=== PATIENT | male | born 1960 | race Caucasian/White ===

== ENCOUNTER → 2020-07-15 09:30 | Outpatient (BNVA) | payer OTHER, SELFPAY | PROVIDERS: PCP Internal Medicine; Visit Provider Psychiatry & Neurology Neurology | DX: Z76.89 Persons encountering health services in other specified circumstances (principal) ==

== ENCOUNTER → 2020-10-07 08:52 | Outpatient (BNVA) | payer OTHER, SELFPAY | PROVIDERS: PCP Internal Medicine; Visit Provider Psychiatry & Neurology Neurology ==

== ENCOUNTER → 2021-04-21 08:29 | Outpatient (BNVA) | payer OTHER, SELFPAY | PROVIDERS: PCP Internal Medicine; Visit Provider Psychiatry & Neurology Neurology ==

== ENCOUNTER 2021-07-01 07:13 | Outpatient (REF) | payer OTHER, SELFPAY ==
[2021-07-01 11:21] LABS: MANUAL DIFF FLAG NO
[2021-07-01 11:33] LABS: Basophils Percent Auto 0.2 % (0-2); Eosinophils Percent Auto 0.2 % (0-4); Hematocrit 42.6 % (42.0-52.0); Hemoglobin 14.5 g/dl (14.0-18.0); Imm Gran Abs Auto 0.02 X10*3/uL (0.00-0.03); Imm Gran Pct Auto 0.3 % (0.0-0.4); Mean Corpuscular Hemoglobin 30.4 pg (27.0-33.0); Mean Corpuscular Volume 89.3 fL (80.0-98.0); Mean Platelet Volume 10.9 fL (9.4-12.4); Monocytes Absolute Auto 0.7 X10*3/uL (0.1-1.2); Monocytes Percent Auto 10.5 % (2-11); Neutrophils Absolute Auto 4.7 x10*3/uL (2.0-8.3); Neutrophils Percent Auto 72.8 % (45-73); Platelet Count 123 X10*3/uL (160-400); Red Blood Count 4.77 X10*6/uL (4.60-5.80); Red Cell Distribution Width 12.3 % (11.0-16.0); White Blood Count 6.5 X10*3/uL (4.8-10.8)
[2021-07-01 11:39] LABS: Estimated Average Glucose 258 mg/dL; Hemoglobin A1c % 10.6 %
[2021-07-01 11:58] LABS: Anion Gap 15 (12-20); Blood Urea Nitrogen 11 mg/dL (9-16); Calcium 9.1 mg/dL (8.4-10.2); Carbon Dioxide 26 mmol/L (22-29); Chloride 98 mmol/L (96-108); Cholesterol 135 mg/dL; Estimated Glomerular Filt Rate > 60; Glucose Fasting 208 mg/dL (60-99); HDL Cholesterol 29 mg/dL; LDL Cholesterol Calculated 87 mg/dl; Potassium 4.1 mmol/L (3.3-5.1); Sodium 135 mmol/L (135-145); Triglycerides 99 mg/dL
[2021-07-01 12:08] LABS: Creatinine Urine 304.96 mg/dL; Microalbum/Creatinine Ratio Ur 119.6 ug/mg cr
== END 2021-07-01 07:14 | disposition home or self-care (01) ==
LOC: HO.HMGCLDS 07:13
PROVIDERS: PCP Internal Medicine; Visit Provider Nurse Practitioner Acute Care
DX: Z00.00 Encounter for general adult medical examination without abnormal findings (principal); Z13.1 Encounter for screening for diabetes mellitus
CPT/HCPCS: 36415; 80048; 80061; 82043; 83036; 85025

== ENCOUNTER 2021-07-15 07:20 | Outpatient (REF) | payer OTHER, SELFPAY ==
[2021-07-15 12:19] LABS: Prostate Specific Antigen Scr 0.88 ng/mL (<0.05-4.0)
== END 2021-07-15 07:21 | disposition home or self-care (01) ==
LOC: HO.HMGCLDS 07:20
PROVIDERS: PCP Internal Medicine; Visit Provider Nurse Practitioner Acute Care
DX: Z12.5 Encounter for screening for malignant neoplasm of prostate (principal)
CPT/HCPCS: 36415; 84153

== ENCOUNTER → 2021-09-22 08:08 | Outpatient (BNVA) | payer OTHER, SELFPAY | PROVIDERS: PCP Internal Medicine; Referring Provider Internal Medicine; Visit Provider Nurse Practitioner Family ==

== ENCOUNTER 2021-10-13 06:50 | Outpatient (REF) | payer OTHER, SELFPAY ==
[2021-10-13 11:33] LABS: MANUAL DIFF FLAG NO
[2021-10-13 11:41] LABS: Basophils Absolute Auto 0.1 X10*3/uL (0.0-0.2); Basophils Percent Auto 0.8 % (0-2); Eosinophils Absolute Auto 0.2 X10*3/uL (0.0-0.4); Eosinophils Percent Auto 3.2 % (0-4); Hematocrit 42.8 % (42.0-52.0); Imm Gran Abs Auto 0.01 X10*3/uL (0.00-0.03); Imm Gran Pct Auto 0.1 % (0.0-0.4); Lymphocytes Percent Auto 28.4 % (20-40); Mean Corpuscular HGB Conc 32.7 g/dl (31.0-36.0); Mean Corpuscular Hemoglobin 30.6 pg (27.0-33.0); Mean Corpuscular Volume 93.4 fL (80.0-98.0); Mean Platelet Volume 10.8 fL (9.4-12.4); Monocytes Absolute Auto 0.6 X10*3/uL (0.1-1.2); Monocytes Percent Auto 8.8 % (2-11); Neutrophils Absolute Auto 4.2 x10*3/uL (2.0-8.3); Neutrophils Percent Auto 58.7 % (45-73); Platelet Count 222 X10*3/uL (160-400); Red Blood Count 4.58 X10*6/uL (4.60-5.80); Red Cell Distribution Width 12.9 % (11.0-16.0); White Blood Count 7.2 X10*3/uL (4.8-10.8)
[2021-10-13 11:50] LABS: Estimated Average Glucose 151 mg/dL; Hemoglobin A1c % 6.9 %
[2021-10-13 11:51] LABS: Appearance Urine CLOUDY; Color Urine YELLOW; Glucose Urine UA NEG (NEG); Leukocyte Esterase Urine NEG (NEG); Nitrite Urine NEG (NEG); PH 5.5 (5.0-8.0); Specific Gravity - Urine >= 1.030 (1.005-1.025); Urine Blood NEG (NEG); Urine Ketones NEG (NEG); Urine Protein NEG (NEG-TRACE)
[2021-10-13 12:04] LABS: Alanine Aminotransferase 22 U/L (0-40); Albumin Level 4.3 g/dL (3.5-5.0); Alkaline Phosphatase 125 U/L (39-117); Anion Gap 13 (12-20); Aspartate Amino Transferase 25 U/L (5-37); Bilirubin Total 0.8 mg/dL (0.0-1.0); Blood Urea Nitrogen 17 mg/dL (9-16); Calcium 9.6 mg/dL (8.4-10.2); Carbon Dioxide 29 mmol/L (22-29); Chloride 105 mmol/L (96-108); Cholesterol 139 mg/dL; Estimated Glomerular Filt Rate > 60; Glucose Fasting 130 mg/dL (60-99); HDL Cholesterol 43 mg/dL; LDL Cholesterol Calculated 82 mg/dl; Potassium 4.4 mmol/L (3.3-5.1); Sodium 143 mmol/L (135-145); Total Protein 6.8 g/dL (6.5-8.0); Triglycerides 72 mg/dL
[2021-10-13 12:18] LABS: TSH reflex Free T4 1.93 uIU/mL (0.32-4.0)
[2021-10-13 12:31] LABS: Creatinine Urine 115.27 mg/dL
[2021-10-13 12:49] LABS: Prostate Specific Antigen Scr 0.71 ng/mL (<0.05-4.0)
[2021-10-15 14:27] LABS: Vitamin D 25-OH Total 15.8 ng/mL (>30)
== END 2021-10-13 06:51 | disposition home or self-care (01) ==
LOC: HO.HMGCLDS 06:50
PROVIDERS: Visit Provider Internal Medicine
DX: Z00.00 Encounter for general adult medical examination without abnormal findings (principal); E11.9 Type 2 diabetes mellitus without complications; I10 Essential (primary) hypertension; E78.00 Pure hypercholesterolemia, unspecified; E55.9 Vitamin D deficiency, unspecified; Z12.5 Encounter for screening for malignant neoplasm of prostate
CPT/HCPCS: 36415; 80053; 80061; 81003; 82043; 82306; 83036; 84153; 84443; 85025

== ENCOUNTER 2022-01-27 06:58 | Outpatient (REF) | payer OTHER, SELFPAY ==
[2022-01-27 11:31] LABS: Appearance Urine CLEAR; Color Urine YELLOW; Glucose Urine UA NEG (NEG); Leukocyte Esterase Urine NEG (NEG); Nitrite Urine NEG (NEG); PH 5.5 (5.0-8.0); Specific Gravity - Urine 1.025 (1.005-1.025); Urine Blood NEG (NEG); Urine Ketones NEG (NEG); Urine Protein NEG (NEG-TRACE)
[2022-01-27 11:35] LABS: MANUAL DIFF FLAG NO
[2022-01-27 11:46] LABS: Basophils Percent Auto 0.5 % (0-2); Eosinophils Absolute Auto 0.2 X10*3/uL (0.0-0.4); Eosinophils Percent Auto 3.1 % (0-4); Hematocrit 41.3 % (42.0-52.0); Hemoglobin 13.8 g/dl (14.0-18.0); Imm Gran Abs Auto 0.01 X10*3/uL (0.00-0.03); Imm Gran Pct Auto 0.2 % (0.0-0.4); Lymphocytes Absolute Auto 1.7 X10*3/uL (1.2-4.9); Lymphocytes Percent Auto 25.6 % (20-40); Mean Corpuscular HGB Conc 33.4 g/dl (31.0-36.0); Mean Corpuscular Hemoglobin 30.8 pg (27.0-33.0); Mean Corpuscular Volume 92.2 fL (80.0-98.0); Mean Platelet Volume 10.9 fL (9.4-12.4); Monocytes Absolute Auto 0.6 X10*3/uL (0.1-1.2); Monocytes Percent Auto 9.1 % (2-11); Neutrophils Percent Auto 61.5 % (45-73); Platelet Count 209 X10*3/uL (160-400); Red Blood Count 4.48 X10*6/uL (4.60-5.80); Red Cell Distribution Width 12.8 % (11.0-16.0); White Blood Count 6.5 X10*3/uL (4.8-10.8)
[2022-01-27 12:30] LABS: TSH reflex Free T4 1.91 uIU/mL (0.32-4.0); Vitamin D 25-OH Total 29.3 ng/mL (>30)
[2022-01-27 12:48] LABS: Alanine Aminotransferase 18 U/L (0-40); Albumin Level 4.3 g/dL (3.5-5.0); Alkaline Phosphatase 118 U/L (39-117); Anion Gap 14 (12-20); Aspartate Amino Transferase 22 U/L (5-37); Bilirubin Total 1.1 mg/dL (0.0-1.0); Blood Urea Nitrogen 16 mg/dL (9-16); Calcium 9.2 mg/dL (8.4-10.2); Carbon Dioxide 29 mmol/L (22-29); Chloride 102 mmol/L (96-108); Cholesterol 131 mg/dL; Estimated Glomerular Filt Rate > 60; Glucose Fasting 112 mg/dL (60-99); HDL Cholesterol 45 mg/dL; LDL Cholesterol Calculated 70 mg/dl; Potassium 4.8 mmol/L (3.3-5.1); Sodium 140 mmol/L (135-145); Total Protein 6.7 g/dL (6.5-8.0); Triglycerides 81 mg/dL
[2022-01-27 13:05] LABS: Creatinine Urine 133.24 mg/dL
== END 2022-01-27 06:59 | disposition home or self-care (01) ==
LOC: HO.HMGCLDS 06:58
PROVIDERS: Visit Provider Internal Medicine
DX: I10 Essential (primary) hypertension (principal); E78.00 Pure hypercholesterolemia, unspecified; E11.9 Type 2 diabetes mellitus without complications; E55.9 Vitamin D deficiency, unspecified
CPT/HCPCS: 36415; 80053; 80061; 81003; 82043; 82306; 84443; 85025

== ENCOUNTER 2022-05-21 06:55 | Outpatient (REF) | payer OTHER, SELFPAY ==
[2022-05-21 11:25] LABS: MANUAL DIFF FLAG NO
[2022-05-21 11:34] LABS: Basophils Absolute Auto 0.1 X10*3/uL (0.0-0.2); Basophils Percent Auto 0.8 % (0-2); Eosinophils Absolute Auto 0.6 X10*3/uL (0.0-0.4); Hematocrit 41.3 % (42.0-52.0); Imm Gran Abs Auto 0.02 X10*3/uL (0.00-0.03); Imm Gran Pct Auto 0.2 % (0.0-0.4); Lymphocytes Absolute Auto 2.2 X10*3/uL (1.2-4.9); Mean Corpuscular HGB Conc 33.9 g/dl (31.0-36.0); Mean Corpuscular Hemoglobin 30.8 pg (27.0-33.0); Mean Platelet Volume 10.1 fL (9.4-12.4); Monocytes Absolute Auto 0.7 X10*3/uL (0.1-1.2); Monocytes Percent Auto 8.7 % (2-11); Neutrophils Absolute Auto 4.7 x10*3/uL (2.0-8.3); Neutrophils Percent Auto 56.3 % (45-73); Platelet Count 223 X10*3/uL (160-400); Red Blood Count 4.54 X10*6/uL (4.60-5.80); Red Cell Distribution Width 12.5 % (11.0-16.0); White Blood Count 8.3 X10*3/uL (4.8-10.8)
[2022-05-21 11:38] LABS: Estimated Average Glucose 151 mg/dL; Hemoglobin A1c % 6.9 %
[2022-05-21 12:08] LABS: Alanine Aminotransferase 15 U/L (0-40); Albumin Level 4.4 g/dL (3.5-5.0); Alkaline Phosphatase 125 U/L (39-117); Anion Gap 15 (12-20); Aspartate Amino Transferase 22 U/L (5-37); Bilirubin Total 0.8 mg/dL (0.0-1.0); Blood Urea Nitrogen 19 mg/dL (9-16); Calcium 9.6 mg/dL (8.4-10.2); Carbon Dioxide 27 mmol/L (22-29); Chloride 102 mmol/L (96-108); Cholesterol 168 mg/dL; Estimated Glomerular Filt Rate > 60; Glucose Fasting 133 mg/dL (60-99); HDL Cholesterol 48 mg/dL; LDL Cholesterol Calculated 97 mg/dl; Potassium 4.3 mmol/L (3.3-5.1); Sodium 140 mmol/L (135-145); Total Protein 6.9 g/dL (6.5-8.0); Triglycerides 116 mg/dL
[2022-05-21 12:11] LABS: TSH reflex Free T4 2.55 uIU/mL (0.32-4.0); Vitamin D 25-OH Total 26.6 ng/mL (>30)
[2022-05-21 12:40] LABS: Creatinine Urine 73.67 mg/dL; Microalbum/Creatinine Ratio Ur 16.2 ug/mg cr
== END 2022-05-21 06:56 | disposition home or self-care (01) ==
LOC: HO.HMGCLDS 06:55
PROVIDERS: PCP Internal Medicine; Visit Provider Internal Medicine
DX: E78.00 Pure hypercholesterolemia, unspecified (principal); E55.9 Vitamin D deficiency, unspecified; E11.9 Type 2 diabetes mellitus without complications; I10 Essential (primary) hypertension
CPT/HCPCS: 36415; 80053; 80061; 82043; 82306; 83036; 84443; 85025

== ENCOUNTER 2022-09-23 06:15 | Outpatient (REF) | payer OTHER, SELFPAY ==
[2022-09-23 11:28] LABS: Appearance Urine Clear; Color Urine Yellow; Glucose Urine UA Negative (Negative); Leukocyte Esterase Urine Negative (Negative); Nitrite Urine Negative (Negative); PH 5.5 (5.0-9.0); Specific Gravity - Urine 1.015 (1.005-1.025); Urine Blood Negative (Negative); Urine Ketones Negative (Negative); Urine Protein Negative (Neg-Trace)
[2022-09-23 11:31] LABS: MANUAL DIFF FLAG NO
[2022-09-23 11:36] LABS: Basophils Absolute Auto 0.1 X10*3/uL (0.0-0.2); Basophils Percent Auto 0.7 % (0-2); Eosinophils Absolute Auto 0.2 X10*3/uL (0.0-0.4); Eosinophils Percent Auto 3.1 % (0-4); Hematocrit 43.1 % (42.0-52.0); Hemoglobin 14.6 g/dl (14.0-18.0); Imm Gran Abs Auto 0.02 X10*3/uL (0.00-0.03); Imm Gran Pct Auto 0.3 % (0.0-0.4); Lymphocytes Percent Auto 26.6 % (20-40); Mean Corpuscular HGB Conc 33.9 g/dl (31.0-36.0); Mean Corpuscular Hemoglobin 30.9 pg (27.0-33.0); Mean Corpuscular Volume 91.3 fL (80.0-98.0); Mean Platelet Volume 10.3 fL (9.4-12.4); Monocytes Absolute Auto 0.7 X10*3/uL (0.1-1.2); Monocytes Percent Auto 8.5 % (2-11); Neutrophils Absolute Auto 4.7 x10*3/uL (2.0-8.3); Neutrophils Percent Auto 60.8 % (45-73); Platelet Count 228 X10*3/uL (160-400); Red Blood Count 4.72 X10*6/uL (4.60-5.80); Red Cell Distribution Width 12.4 % (11.0-16.0); White Blood Count 7.6 X10*3/uL (4.8-10.8)
[2022-09-23 12:03] LABS: Estimated Average Glucose 180 mg/dL; Hemoglobin A1c % 7.9 %
[2022-09-23 12:13] LABS: Alanine Aminotransferase 23 U/L (0-40); Albumin Level 4.4 g/dL (3.5-5.0); Alkaline Phosphatase 112 U/L (39-117); Anion Gap 13 (12-20); Aspartate Amino Transferase 24 U/L (5-37); Bilirubin Total 1.2 mg/dL (0.0-1.0); Blood Urea Nitrogen 11 mg/dL (9-16); Calcium 9.1 mg/dL (8.4-10.2); Carbon Dioxide 29 mmol/L (22-29); Chloride 102 mmol/L (96-108); Cholesterol 153 mg/dL; Estimated Glomerular Filt Rate > 60; Glucose Fasting 153 mg/dL (60-99); HDL Cholesterol 44 mg/dL; LDL Cholesterol Calculated 83 mg/dl; Potassium 4.2 mmol/L (3.3-5.1); Sodium 140 mmol/L (135-145); TSH reflex Free T4 2.75 uIU/mL (0.32-4.0); Total Protein 6.8 g/dL (6.5-8.0); Triglycerides 130 mg/dL; Vitamin D 25-OH Total 31.1 ng/mL (>30)
[2022-09-23 12:28] LABS: Creatinine Urine 132.98 mg/dL; Microalbum/Creatinine Ratio Ur 18.7 ug/mg cr
== END 2022-09-23 06:16 | disposition home or self-care (01) ==
LOC: HO.HMGCLDS 06:15
PROVIDERS: PCP Internal Medicine; Visit Provider Internal Medicine
DX: E55.9 Vitamin D deficiency, unspecified (principal); R30.0 Dysuria; E11.9 Type 2 diabetes mellitus without complications; E78.00 Pure hypercholesterolemia, unspecified; I10 Essential (primary) hypertension
CPT/HCPCS: 36415; 80053; 80061; 81003; 82043; 82306; 83036; 84443; 85025

== ENCOUNTER → 2022-12-14 08:56 | Outpatient (BNVA) | payer OTHER, SELFPAY | PROVIDERS: PCP Internal Medicine; Visit Provider Nurse Practitioner Family ==

== ENCOUNTER 2023-02-12 06:32 | Outpatient (REF) | payer OTHER, SELFPAY ==
[2023-02-12 11:27] LABS: MANUAL DIFF FLAG NO
[2023-02-12 11:35] LABS: Basophils Absolute Auto 0.1 X10*3/uL (0.0-0.2); Basophils Percent Auto 0.8 % (0-2); Eosinophils Absolute Auto 0.2 X10*3/uL (0.0-0.4); Eosinophils Percent Auto 2.8 % (0-4); Hematocrit 40.5 % (42.0-52.0); Hemoglobin 13.5 g/dl (14.0-18.0); Imm Gran Abs Auto 0.01 X10*3/uL (0.00-0.03); Imm Gran Pct Auto 0.1 % (0.0-0.4); Lymphocytes Percent Auto 25.3 % (20-40); Mean Corpuscular HGB Conc 33.3 g/dl (31.0-36.0); Mean Corpuscular Hemoglobin 30.7 pg (27.0-33.0); Mean Platelet Volume 10.6 fL (9.4-12.4); Monocytes Absolute Auto 0.5 X10*3/uL (0.1-1.2); Neutrophils Absolute Auto 4.9 x10*3/uL (2.0-8.3); Platelet Count 219 X10*3/uL (160-400); Red Cell Distribution Width 12.6 % (11.0-16.0); White Blood Count 7.7 X10*3/uL (4.8-10.8)
[2023-02-12 11:40] LABS: Appearance Urine Clear; Color Urine Yellow; Glucose Urine UA Negative (Negative); Leukocyte Esterase Urine Negative (Negative); Nitrite Urine Negative (Negative); PH 6.5 (5.0-9.0); Urine Blood Negative (Negative); Urine Ketones Negative (Negative); Urine Protein Negative (Neg-Trace)
[2023-02-12 11:48] LABS: Estimated Average Glucose 160 mg/dL; Hemoglobin A1c % 7.2 %
[2023-02-12 12:11] LABS: Creatinine Urine 175.03 mg/dL; Microalbum/Creatinine Ratio Ur 11.4 ug/mg cr
[2023-02-12 12:15] LABS: Alanine Aminotransferase 20 U/L (0-40); Albumin Level 4.1 g/dL (3.5-5.0); Alkaline Phosphatase 119 U/L (39-117); Anion Gap 11 (12-20); Aspartate Amino Transferase 23 U/L (5-37); Bilirubin Total 0.8 mg/dL (0.0-1.0); Blood Urea Nitrogen 11 mg/dL (9-16); Calcium 9.5 mg/dL (8.4-10.2); Carbon Dioxide 29 mmol/L (22-29); Chloride 104 mmol/L (96-108); Cholesterol 141 mg/dL; Estimated Glomerular Filt Rate > 60; Glucose Fasting 125 mg/dL (60-99); HDL Cholesterol 43 mg/dL; LDL Cholesterol Calculated 75 mg/dl; Potassium 4.1 mmol/L (3.3-5.1); Sodium 140 mmol/L (135-145); Total Protein 6.8 g/dL (6.5-8.0); Triglycerides 115 mg/dL
[2023-02-12 12:17] LABS: TSH reflex Free T4 2.54 uIU/mL (0.32-4.0); Vitamin D 25-OH Total 45.7 ng/mL (>30)
== END 2023-02-12 06:33 | disposition home or self-care (01) ==
LOC: HO.HMGCLDS 06:32
PROVIDERS: PCP Internal Medicine; Visit Provider Internal Medicine
DX: E55.9 Vitamin D deficiency, unspecified (principal); R30.0 Dysuria; E78.00 Pure hypercholesterolemia, unspecified; E11.9 Type 2 diabetes mellitus without complications; I10 Essential (primary) hypertension
CPT/HCPCS: 36415; 80053; 80061; 81003; 82043; 82306; 83036; 84443; 85025

== ENCOUNTER 2023-02-16 11:03 | Outpatient (AMB) | payer OTHER, SELFPAY ==
[2023-02-16 11:07] VITALS: BP 122/80; PULSE 65; O2SAT 97; BMI 41.1
--- NOTE | 2023-02-16 11:07 | A.OFFPC_ITS ---
Vital Signs 02/16/23 11:07 Height 5 ft 7.5 in Weight 266 lb 4 oz BMI 41.1 BP 122/80 Blood Pressure Location Lt brachial Position Sitting Pulse 65 Pulse Source Pulse Oximeter Pulse Oximetry (%) 97 Intake Visit Reasons: 4m F/ U DM, hyperlipidemia Hand Packager Required: No Accompanied by: Self / Same As Patient Allergies No Known Allergies [No Known Allergies*] Allergy (Verified 02/16/23 11:37) Medication List - Last Reconciled 02/16/23 by Tylor Fletcher MD blood sugar diagnostic (FreeStyle Lite Strips) USE TO TEST ONCE DAILY blood-glucose meter (FreeStyle Lite Meter kit) Test Daily cholecalciferol (vitamin D3) 50 mcg PO DAILY 90 days insulin glargine (Lantus U-100 Insulin) 10 units (0.1 mL) subcut QPM 90 days insulin syringe-needle U-100 Use Daily lancets (FreeStyle Lancets) USE TO TEST ONCE DAILY metformin 1,000 mg PO BID 90 days pravastatin 20 mg PO DAILY 90 days Tobacco use date assessed: 02/16/23 Dental Screening Dental Screen Date: 02/16/23 Did you have a dental visit in the last 12 months?: No Did you have a dental problem in the last 6 months where you did not have access to dental care?: No Was dental information given to patient?: No HPI 3m F/ U DM, hyperlipidemia HPI Details Patient comes in today for his follow up visit States that he feels okay He denies any headaches or dizziness Denies any chest pains, no SOB No nausea/vomiting, no abdominal pain No change in bowel habits noted Had his follow up labs done a few days ago - to discuss his results COUNT INCLUDES THE [facility] Medical History Diabetes mellitus Elevated LFTs Primary osteoarthritis of both knees Primary osteoarthritis, right shoulder Pure hypercholesterolemia Vitamin D deficiency Surgical History H/O right knee surgery History of colonoscopy Family History Father Diabetes Gout CVD (cardiovascular disease) Cancer Mother Cancer Other Mental health disorder Social History Housing: House Alcohol intake: current Alcohol intake frequency: a few times a month Alcohol type: beer Patient Tobacco Use Status: Former Tobacco user e-Cigarette/Vaping Use: Never Used Second Hand Smoke Exposure: No service: No Current occupational status: employed 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 1. Little interest or pleasure in doing things: not at all 2. Feeling down, depressed, or hopeless: not at all 3. Trouble falling or staying asleep, or sleeping too much: not at all 4. Feeling tired or having little energy: not at all 5. Poor appetite or overeating: not at all 6. Feeling bad about yourself - or that you are a failure or have let yourself or your family down: not at all 7. Trouble concentrating on things, such as reading the newspaper or watching television: not at all 8. Moving or speaking so slowly that other people could have noticed. Or the opposite - being so fidgety or restless that you have been moving around a lot more than usual: not at all 9. Thoughts that you would be better off or of hurting yourself in some way: not at all Total score: 0 Depression Screening Interpretation: Negative [id number] - PHQ-9 Billing: Yes Source: Developed by Drs. Tuan Pearce, Naty Mcleod, Babak Duff and colleagues, with an educational anupama from [employer]. Thrive Questionnaire Date Thrive assessed: 02/16/23 I am a: Patient What is your living situation today?: I have a steady place to live Within the past 12 months, did the food you bought not last and you didn't have the money to get more?: Never true Within the past 12 months, did you worry whether your food would run out before you got money to buy more?: Never true Do you have trouble paying for medicines?: No Do you have trouble getting transportation to medical appointments?: No Do you have trouble paying your heating and electricity bill?: No Do you have trouble taking care of your child, family member or friend?: No Do you have trouble with day-to-day activities such as bathing, preparing meals, shopping, managing finances, etc.?: No Are you currently unemployed and looking for a job?: No Are you interested in more education?: No Please select the resources that you would like help with: None Currently or been in a relationship where the following occur: no concerns reported AUDIT C Alcohol Use Questionnaire (AUDIT-C) 1. How often do you have a drink containing alcohol?: Monthly or less 2. How many drinks containing alcohol do you have on a typical day when you are drinking?: 1 or 2 3. How often do you have six or more drinks on one occasion?: Never Total Score: 1 Score Reviewed/Action Taken: Yes CARTER-7 AMB Questionnaire CARTER-7 Date CARTER - 7 assessed: 02/16/23 Feeling nervous, anxious, or on edge: 0 = Not at all Not being able to stop or control worryin = Not at all Worrying too much about different things: 0 = Not at all Trouble relaxin = Not at all Being so restless that it is hard to sit still: 0 = Not at all Becoming easily annoyed or irritable: 0 = Not at all Feeling afraid as if something awful might happen: 0 = Not at all Total CARTER-7 score (0-4 normal; 5-9 mild; 10-14 moderate; 15-21 severe): 0 Source: Developed by Drs. Tuan Pearce, Naty Mcleod, Babak Duff and colleagues, with an educational anupama from [employer]. Review of Systems Const Denies fatigue, Denies fever(s) and Denies headache(s) Eyes Reports blurry vision (in both eyes, worse in the left eye - sees ophthalmology) ENT Denies dysphagia, Denies dizziness, Denies otalgia, Denies headache(s), Denies neck pain and Denies sore throat Card Denies chest pain, Denies palpitations and Denies dyspnea Resp Denies cough and Denies dyspnea GI Denies abdominal pain, Denies constipation, Denies dysphagia, Denies heartburn, Denies diarrhea, Denies nausea and Denies vomiting Denies dysuria, Denies nocturia and Denies urinary frequency Musc Reports arthralgias (both knees, right shoulder; on and off) and Denies neck pain Neuro Denies dizziness and Denies headache(s) Endo Denies fatigue and Denies palpitations Physical exam (Primary Care) Vital Signs: Last Vital Signs Pulse 65 02/16/23 11:07 BP 122/80 02/16/23 11:07 Pulse Ox 97 02/16/23 11:07 BMI result Body Mass Index 41.1 Tobacco/Smoking Status: Tobacco use Status Tobacco use date assessed 02/16/23 02/16/23 11:08 Patient Tobacco Use Status Former Tobacco user 02/16/23 11:08 e-Cigarette/Vaping Use Never Used 02/16/23 11:08 PHQ-9: PHQ-9 Score PHQ-9: Total score 0 02/16/23 11:08 Depression Screening Interpretation: Negative Thrive Assessment: Date of Thrive Assessment Date Thrive assessed 02/16/23 02/16/23 11:08 Currently or been in a relationship where the following occur: no concerns reported Const General: no acute distress and alert HENMT Throat: Yes posterior oropharynx normal and Yes tonsils normal (no TP congestion) Neck Neck: Yes no lymphadenopathy and Yes supple Resp Auscultation: clear to auscultation bilaterally, no rales and no wheezes Cardio Rate: regular rate Rhythm: regular rhythm Heart sounds: no murmurs GI Palpation (GI): Soft to palpation, nontender and No hepatosplenomegaly present Skin Rashes: no rashes Extrem General: Yes no clubbing, cyanosis or edema Results Reviewed Results Reviewed: Laboratory Tests 02/12/23 02/12/23 02/12/23 06:40 06:40 06:40 WBC 7.7 Hgb 13.5 L Hct 40.5 L Plt Count 219 Sodium 140 Potassium 4.1 Creatinine 0.78 Estimated GFR > 60 Fasting Glucose 125 H Hemoglobin A1c % Calcium 9.5 AST 23 ALT 20 Triglycerides 115 Cholesterol 141 LDL Cholesterol, Calc 75 HDL Cholesterol 43 25-OH Vitamin D Total 45.7 TSH 2.54 Ur Specific [place] 1.020 Urine Protein Negative Urine Glucose (UA) Negative Urine Blood Negative Microalb/Creat Ratio 02/12/23 02/12/23 06:40 06:40 WBC Hgb Hct Plt Count Sodium Potassium Creatinine Estimated GFR Fasting Glucose Hemoglobin A1c % 7.2 Calcium AST ALT Triglycerides Cholesterol LDL Cholesterol, Calc HDL Cholesterol 25-OH Vitamin D Total TSH Ur Specific [place] Urine Protein Urine Glucose (UA) Urine Blood Microalb/Creat Ratio 11.4 Assessment and Plan Assessment & Plan (1) Diabetes mellitus: Code(s): E11.9 - Type 2 diabetes mellitus without complications Qualifiers: Diabetes mellitus type: type 2 Diabetes mellitus detention insulin use: with detention use Diabetes mellitus complication status: without complication Qualified Code(s): E11.9 - Type 2 diabetes mellitus without complications; Z79.4 - buttermaker continuous churn (current) use of insulin Plan: HgbA1c has improved to 7.2% on his labs done a few days ago (was at 7.9% a few months ago) - goal is <7.0% Reinforced diabetic diet Continue Lantus 10 units QD and Metformin 1000 mg BID Follow-up with endocrinology as scheduled (2) Pure hypercholesterolemia: Code(s): E78.00 - Pure hypercholesterolemia, unspecified Plan: Results of his labs done a few days ago reviewed and discussed with patient Reinforced low-cholesterol diet Continue Pravastatin 20 mg QD Will recheck his labs in 4 months for follow up (3) Elevated LFTs: Code(s): R79.89 - Other specified abnormal findings of blood chemistry Plan: Improved / resolved and LFTs have remained normal on his recent labs - were most likely related to his weight (hepatosteatosis) Will continue to monitor his LFTs regularly (4) Vitamin D deficiency: Code(s): E55.9 - Vitamin D deficiency, unspecified Plan: Corrected - continue Vitamin D3 2000 units QD (5) Primary osteoarthritis of both knees: Code(s): M17.0 - Bilateral primary osteoarthritis of knee Plan: States that his knee pains remain mostly manageable Reminded again that losing some weight can help ease up on his knee pain/symptoms (6) Primary osteoarthritis, right shoulder: Code(s): M19.011 - Primary osteoarthritis, right shoulder Plan: Symptoms remain adequately controlled on his current meds Encouraged to continue with regular shoulder ROM exercises to help manage his joint pains and stiffness (7) Obstructive sleep apnea: Comment: On APAP [id number] Code(s): G47.33 - Obstructive sleep apnea (adult) (pediatric) Plan: Continues to use his autoPAP regularly when he is sleeping at night Follow up with Sleep Medicine as scheduled (8) Obesity (BMI 30-39.9): Code(s): E66.9 - Obesity, unspecified Plan: Reinforced diet/exercise as tolerated/lose weight Plan Follow up in 4 months Orders: Orders Comprehensive [facility]. Panel Fast 4 Months E78.00 - Pure hypercholesterolemia, unspecified Hemoglobin A1c 4 Months E11.9 - Type 2 diabetes mellitus without complications Lipid Panel 4 Months E78.00 - Pure hypercholesterolemia, unspecified Complete Blood Count Auto Diff 4 Months I10 - Essential (primary) hypertension TSH reflex Free T4 4 Months E78.00 - Pure hypercholesterolemia, unspecified Vitamin D 25-OH Total 4 Months E55.9 - Vitamin D deficiency, unspecified Microalbumin, Random (w Creat) 4 Months E11.9 - Type 2 diabetes mellitus without complications UA CC w/rflx Micro + Cult 4 Months R30.0 - Dysuria Coding Level of Care Code Est Pt Level 4 (32872) Diagnoses Diabetes mellitus E11.9; Z79.4 Diabetes mellitus type: type 2 Diabetes mellitus salvage determiner insulin use: with detention use Diabetes mellitus complication status: without complication Pure hypercholesterolemia E78.00 Elevated LFTs R79.89 Vitamin D deficiency E55.9 Primary osteoarthritis of both knees M17.0 Primary osteoarthritis, right shoulder M19.011 Obstructive sleep apnea G47.33 Obesity (BMI 30-39.9) E66.9
== END 2023-02-16 11:48 | disposition home or self-care (01) ==
PROVIDERS: PCP Internal Medicine; Visit Provider Internal Medicine
DX: E11.9 Type 2 diabetes mellitus without complications (principal); Z79.4 Long term (current) use of insulin; E55.9 Vitamin D deficiency, unspecified; E78.00 Pure hypercholesterolemia, unspecified; R79.89 Other specified abnormal findings of blood chemistry; M17.0 Bilateral primary osteoarthritis of knee; M19.011 Primary osteoarthritis, right shoulder; G47.33 Obstructive sleep apnea (adult) (pediatric); E66.9 Obesity, unspecified
CPT/HCPCS: 99214

== ENCOUNTER 2023-04-13 09:01 | Outpatient (AMB) | payer OTHER, SELFPAY ==
--- NOTE | 2023-04-13 08:55 | AM.OFFWIN_ITS ---
Intake Vital Signs 04/13/23 08:56 Height 5 ft 7.5 in Weight 271 lb BMI 41.8 BP 130/72 Blood Pressure Location Lt brachial Position Sitting Pulse 61 Pulse Source Pulse Oximeter Pulse Oximetry (%) 97 Oxygen Delivery Method Room Air Intake Visit Reasons: EST/cut top of left hand with copper tubing Intake Note: Pt is here c/o having a cut on the top of his right hand. Patient Tobacco Use Status: Former Tobacco user Allergies No Known Allergies [No Known Allergies*] Allergy (Verified 04/13/23 08:58) HPI EST/cut top of left hand with copper tubing HPI Details 62-year-old male presents to the office for a sick visit. Patient injured his hand while working on a metal cabinet. [facility] Medical History Diabetes mellitus Elevated LFTs Primary osteoarthritis of both knees Primary osteoarthritis, right shoulder Pure hypercholesterolemia Vitamin D deficiency Surgical History H/O right knee surgery History of colonoscopy Family History Father Diabetes Gout CVD (cardiovascular disease) Cancer Mother Cancer Other Mental health disorder Social History Housing: House Alcohol intake: current Alcohol intake frequency: a few times a month Alcohol type: beer Patient Tobacco Use Status: Former Tobacco user e-Cigarette/Vaping Use: Never Used Second Hand Smoke Exposure: No service: No Current occupational status: employed 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 Office Procedures Laceration Repair Laceration repair performed by: Wang Duenas Explained risks and benefits to parent: Yes Length: 4 cm Anesthesia: 2% lidocaine Preparation: chlorhexidine Skin closure: nylon Technique: Individual sutures applied Topical treatment: mupiricin Tetanus toxoid ordered: No Patient tolerated procedure: [place]: [place] [id number] Repair 2.6-7.5cm Procedure code (CPT) selection complete Assessment & Plan Assessment & Plan (1) Open wound, hand: Code(s): S61.409A - Unspecified open wound of unspecified hand, initial encounter Qualifiers: Encounter type: initial encounter Open wound type: laceration Foreign body presence: unspecified Laterality: left Qualified Code(s): S61.412A - Laceration without foreign body of left hand, initial encounter Plan: Patient tolerated the procedure well. Will return in a week for suture removal. Orders: Orders Laceration repair Today S61.409A - Unspecified open wound of unspecified hand, initial encounter Coding Level of Care Code Est Pt Level 3 (29813) Diagnoses Laceration of left hand, foreign body presence unspecified, initial encounter S61.412A Encounter type: initial encounter Open wound type: laceration Foreign body presence: unspecified Laterality: left
[2023-04-13 08:56] VITALS: BP 130/72; PULSE 61; O2SAT 97; BMI 41.8
== END 2023-04-13 10:15 | disposition home or self-care (01) ==
PROVIDERS: PCP Internal Medicine; Visit Provider Internal Medicine
DX: S61.412A Laceration without foreign body of left hand, initial encounter (principal)
CPT/HCPCS: 99213

== ENCOUNTER 2023-04-20 08:07 | Outpatient (AMB) | payer OTHER, SELFPAY ==
[2023-04-20 08:11] VITALS: BP 120/72; PULSE 84; TEMP 36.3; O2SAT 98; BMI 41.8
--- NOTE | 2023-04-20 08:11 | MHC.OFFWIV ---
Intake Vital Signs 04/20/23 08:11 Height 5 ft 7.5 in Weight 271 lb BMI 41.8 BP 120/72 Blood Pressure Location Rt brachial Position Sitting Pulse 84 Pulse Source Pulse Oximeter Temp 97.4 F Temp Source Temporal Artery Scan Pulse Oximetry (%) 98 Intake Visit Reasons: EP-Lt hand stiches removal Intake Note: pt is here for stitches removal on right hand Patient Tobacco Use Status: Former Tobacco user Allergies No Known Allergies [No Known Allergies*] Allergy (Verified 04/20/23 08:11) HPI HPI Comments History of Present Illness Details Patient presents to urgent care for suture removal. He sustained a laceration to the back of his right hand 0 week ago. No complaints. PFSH Medical History Diabetes mellitus Elevated LFTs Primary osteoarthritis of both knees Primary osteoarthritis, right shoulder Pure hypercholesterolemia Vitamin D deficiency Surgical History H/O right knee surgery History of colonoscopy Family History Father Diabetes Gout CVD (cardiovascular disease) Cancer Mother Cancer Other Mental health disorder Social History Housing: House Alcohol intake: current Alcohol intake frequency: a few times a month Alcohol type: beer Patient Tobacco Use Status: Former Tobacco user e-Cigarette/Vaping Use: Never Used Second Hand Smoke Exposure: No service: No Current occupational status: employed 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 Cognitive needs: No Hearing needs: No Vision needs: Yes (glasses) Review of Systems Eyes Reports no additional complaints ENT Reports Normal hearing present and Denies dysphagia Card Denies dyspnea and Denies slow heart rate Resp Denies cough and Denies dyspnea GI Denies dysphagia and Denies heartburn Denies dysuria Musc Denies tingling Skin/Breast Reports lesions, Denies skin ulcer and Denies unusual bruising Neuro Reports Normal hearing present, Denies Sensory deficit (Neuro), Denies tingling and Denies paresthesias Physical Exam Vital Signs: Last Vital Signs Temp 97.4 F 04/20/23 08:11 Pulse 84 04/20/23 08:11 BP 120/72 04/20/23 08:11 Pulse Ox 98 04/20/23 08:11 BMI result Body Mass Index 41.8 Const General: healthy appearing and no acute distress Resp Effort & Inspection: normal respiratory effort and able to speak in complete sentences Skin Other: Right hand dorsal aspect laceration noted with [address]. There is no wound dehiscence. There is some surrounding erythema and edema to the wound edges. It is tender to palpation, no purulent drainage. Neuro Cranial nerves: Yes Normal hearing present Sensory Exam: No Sensory deficit (Neuro) Assessment & Plan Assessment & Plan (1) Visit for suture removal: Code(s): Z48.02 - Encounter for removal of sutures (2) Wound infection: Code(s): T14.8XXA - Other injury of unspecified body region, initial encounter; L08.9 - Local infection of the skin and subcutaneous tissue, unspecified Plan Localized wound infection around the laceration. Patient is a known diabetic. Suture removed without incident. Wound cleaned and bacitracin and sterile dressing applied. Patient recommended to keep close watch on the wound and return if symptoms worsen. Recommend to keep applying topical antibiotic Coding Level of Care Code Est Pt Level 3 (58924) Diagnoses Visit for suture removal Z48.02 Wound infection T14.8XXA; L08.9
== END 2023-04-20 08:37 | disposition home or self-care (01) ==
PROVIDERS: PCP Internal Medicine; Visit Provider Emergency Medicine
DX: Z48.02 Encounter for removal of sutures (principal); T14.8XXA Other injury of unspecified body region, initial encounter; L08.9 Local infection of the skin and subcutaneous tissue, unspecified
CPT/HCPCS: 99213

== ENCOUNTER 2023-10-25 06:07 | Outpatient (REF) | payer OTHER, SELFPAY ==
[2023-10-25 12:46] LABS: MANUAL DIFF FLAG NO
[2023-10-25 12:50] LABS: Basophils Absolute Auto 0.1 X10*3/uL (0.0-0.2); Basophils Percent Auto 0.7 % (0-2); Eosinophils Absolute Auto 0.2 X10*3/uL (0.0-0.4); Eosinophils Percent Auto 2.9 % (0-4); Hematocrit 40.4 % (42.0-52.0); Hemoglobin 13.3 g/dl (14.0-18.0); Imm Gran Abs Auto 0.02 X10*3/uL (0.00-0.03); Imm Gran Pct Auto 0.2 % (0.0-0.4); Lymphocytes Absolute Auto 2.2 X10*3/uL (1.2-4.9); Lymphocytes Percent Auto 27.1 % (20-40); Mean Corpuscular HGB Conc 32.9 g/dl (31.0-36.0); Mean Corpuscular Hemoglobin 29.9 pg (27.0-33.0); Mean Corpuscular Volume 90.8 fL (80.0-98.0); Monocytes Absolute Auto 0.7 X10*3/uL (0.1-1.2); Monocytes Percent Auto 8.3 % (2-11); Neutrophils Percent Auto 60.8 % (45-73); Platelet Count 232 X10*3/uL (160-400); Red Blood Count 4.45 X10*6/uL (4.60-5.80); Red Cell Distribution Width 12.7 % (11.0-16.0); White Blood Count 8.2 X10*3/uL (4.8-10.8)
[2023-10-25 13:07] LABS: Estimated Average Glucose 183 mg/dL
[2023-10-25 13:15] LABS: Alanine Aminotransferase 19 U/L (0-40); Alkaline Phosphatase 138 U/L (39-117); Anion Gap 12 (12-20); Aspartate Amino Transferase 23 U/L (5-37); Bilirubin Total 0.6 mg/dL (0.0-1.0); Blood Urea Nitrogen 13 mg/dL (9-16); Calcium 9.7 mg/dL (8.4-10.2); Carbon Dioxide 30 mmol/L (22-29); Chloride 103 mmol/L (96-108); Cholesterol 131 mg/dL (<200); Estimated Glomerular Filt Rate > 60; Glucose Fasting 149 mg/dL (60-99); HDL Cholesterol 41 mg/dL (>40); LDL Cholesterol Calculated 67 mg/dL (<100); Potassium 4.3 mmol/L (3.3-5.1); Sodium 141 mmol/L (135-145); Triglycerides 116 mg/dL (<150)
[2023-10-25 13:19] LABS: Appearance Urine Clear; Color Urine Yellow; Glucose Urine UA Negative (Negative); Leukocyte Esterase Urine Negative (Negative); Nitrite Urine Negative (Negative); Specific Gravity - Urine 1.025 (1.005-1.025); Urine Blood Negative (Negative); Urine Ketones Negative (Negative); Urine Protein Trace mg/dL (Neg-Trace)
[2023-10-25 13:36] LABS: TSH reflex Free T4 1.86 uIU/mL (0.32-4.0); Vitamin D 25-OH Total 58.1 ng/mL (>30)
[2023-10-25 13:57] LABS: Creatinine Urine 168.57 mg/dL; Microalbum/Creatinine Ratio Ur 21.3 ug/mg cr (<30)
== END 2023-10-25 06:08 | disposition home or self-care (01) ==
LOC: HO.HMGCLDS 06:07
PROVIDERS: PCP Internal Medicine; Visit Provider Internal Medicine
DX: E78.00 Pure hypercholesterolemia, unspecified (principal); E11.9 Type 2 diabetes mellitus without complications; E55.9 Vitamin D deficiency, unspecified; R30.0 Dysuria; I10 Essential (primary) hypertension
CPT/HCPCS: 36415; 80053; 80061; 81003; 82043; 82306; 82570; 83036; 84443; 85025

== ENCOUNTER 2023-11-02 09:07 | Outpatient (AMB) | payer OTHER, SELFPAY ==
[2023-11-02 09:09] VITALS: BP 132/78; PULSE 61; O2SAT 97; BMI 44.0
--- NOTE | 2023-11-02 09:09 | A.OFFPC_ITS ---
Vital Signs 11/02/23 09:09 Height 5 ft 5.7 in Weight 270 lb BMI 44.0 BP 132/78 Blood Pressure Location Lt brachial Position Sitting Pulse 61 Pulse Source Pulse Oximeter Pulse Oximetry (%) 97 Oxygen Delivery Method Room Air Intake Visit Reasons: Annual PE Intake Note: Patient is here today for a physical. 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 Allergies No Known Allergies [No Known Allergies*] Allergy (Verified 11/02/23 09:34) Medication List - Last Reconciled 11/02/23 by Tylor Fletcher MD blood sugar diagnostic (FreeStyle Lite Strips) USE TO TEST ONCE DAILY blood-glucose meter (FreeStyle Lite Meter kit) Test Daily cholecalciferol (vitamin D3) 50 mcg PO DAILY 90 days insulin glargine (Lantus U-100 Insulin) 10 units (0.1 mL) subcut QPM 90 days insulin syringe-needle U-100 Use Daily lancets (FreeStyle Lancets) USE TO TEST ONCE DAILY metformin 1,000 mg PO BID 90 days pravastatin 20 mg PO DAILY 90 days Tobacco use date assessed: 11/02/23 Fall risk assessment: No Falls in past year Last assessed Fall Risk: 11/02/23 Dental Screening Dental Screen Date: 11/02/23 Did you have a dental visit in the last 12 months?: No Did you have a dental problem in the last 6 months where you did not have access to dental care?: No HPI Annual PE HPI Details Patient comes in today for his annual physical examination States that he feels okay He denies any headaches or dizziness Denies any chest pains, no SOB No nausea/vomiting, no abdominal pain No change in bowel habits noted Denies any acute urinary symptoms Had his follow up labs done last week - to discuss his results Had his colonoscopy last done in [address] Hylton - recommended repeat colonoscopy in 5 years so he is now due for his repeat colon cancer screen [facility] Medical History Vitamin D deficiency Elevated LFTs Primary osteoarthritis, right shoulder Primary osteoarthritis of both knees Pure hypercholesterolemia Diabetes mellitus Surgical History (Updated 11/02/23 @ 09:56 by Tylor Fletcher MD) H/O right knee surgery History of colonoscopy Family History Father Diabetes Gout CVD (cardiovascular disease) Cancer Mother Cancer Other Mental health disorder Social History Housing: House Alcohol intake: current Alcohol intake frequency: a few times a month Alcohol type: beer Patient Tobacco Use Status: Former Tobacco user e-Cigarette/Vaping Use: Never Used Second Hand Smoke Exposure: No service: No Current occupational status: employed 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 1. Little interest or pleasure in doing things: not at all 2. Feeling down, depressed, or hopeless: not at all 3. Trouble falling or staying asleep, or sleeping too much: not at all 4. Feeling tired or having little energy: not at all 5. Poor appetite or overeating: not at all 6. Feeling bad about yourself - or that you are a failure or have let yourself or your family down: not at all 7. Trouble concentrating on things, such as reading the newspaper or watching television: not at all 8. Moving or speaking so slowly that other people could have noticed. Or the opposite - being so fidgety or restless that you have been moving around a lot more than usual: not at all 9. Thoughts that you would be better off or of hurting yourself in some way: not at all Total score: 0 Depression Screening Interpretation: Negative Depression Screening Done: Yes 58448 - PHQ-9 Billing: Yes Source: Developed by Drs. Tuan Pearce, Naty Mcleod, Babak Duff and colleagues, with an educational anupama from [employer]. Thrive Questionnaire Date Thrive assessed: 11/02/23 I am a: Patient What is your living situation today?: I have a steady place to live Within the past 12 months, did the food you bought not last and you didn't have the money to get more?: Never true Within the past 12 months, did you worry whether your food would run out before you got money to buy more?: Never true Do you have trouble paying for medicines?: No Do you have trouble getting transportation to medical appointments?: No Do you have trouble paying your heating and electricity bill?: No Do you have trouble taking care of your child, family member or friend?: No Do you have trouble with day-to-day activities such as bathing, preparing meals, shopping, managing finances, etc.?: No Are you currently unemployed and looking for a job?: No Are you interested in more education?: No Please select the resources that you would like help with: None Currently or been in a relationship where the following occur: no concerns reported THRIVE Score: 0 AUDIT C Alcohol Use Questionnaire (AUDIT-C) 1. How often do you have a drink containing alcohol?: Monthly or less 2. How many drinks containing alcohol do you have on a typical day when you are drinking?: 1 or 2 3. How often do you have six or more drinks on one occasion?: Never Total Score: 1 Score Reviewed/Action Taken: Yes CARTER-7 AMB Questionnaire CARTER-7 Date CARTER - 7 assessed: 11/02/23 Feeling nervous, anxious, or on edge: 0 = Not at all Not being able to stop or control worryin = Not at all Worrying too much about different things: 0 = Not at all Trouble relaxin = Not at all Being so restless that it is hard to sit still: 0 = Not at all Becoming easily annoyed or irritable: 0 = Not at all Feeling afraid as if something awful might happen: 0 = Not at all Total CARTER-7 score (0-4 normal; 5-9 mild; 10-14 moderate; 15-21 severe): 0 Source: Developed by Drs. Tuan Pearce, Naty Mcleod, Babak Duff and colleagues, with an educational anupama from [employer]. Review of Systems Const Denies chills, Denies fatigue, Denies fever(s), Denies headache(s), Denies malaise and Denies weakness Eyes Denies blurry vision, Denies change in vision, Denies irritation and Denies itchy eyes ENT Denies dysphagia, Denies dizziness, Denies otalgia, Denies headache(s), Denies nasal congestion, Denies neck pain, Denies odynophagia and Denies sore throat Card Denies chest pain, Denies rapid heart rate, Denies irregular heart rhythm, Denies palpitations and Denies dyspnea Resp Denies chest congestion, Denies cough, Denies dyspnea and Denies wheezing GI Denies abdominal pain, Denies bloating, Denies constipation, Denies dysphagia, Denies heartburn, Denies diarrhea, Denies nausea, Denies odynophagia and Denies vomiting Denies hematuria, Denies difficulty urinating, Denies dysuria, Denies urinary frequency and Denies urinary urgency Musc Denies back pain, Denies arthralgias, Denies joint swelling, Denies muscle weakness and Denies neck pain Skin/Breast Denies change in pigmentation, Denies lesions, Denies rash and Denies unusual bruising Neuro Denies dizziness, Denies headache(s), Denies paresthesias and Denies weakness Endo Denies fatigue and Denies palpitations Aller/Immun Denies itchy eyes and Denies wheezing Physical exam (Primary Care) Vital Signs: Last Vital Signs Pulse 61 11/02/23 09:09 BP 132/78 11/02/23 09:09 Pulse Ox 97 11/02/23 09:09 Oxygen Delivery Method Room Air 11/02/23 09:09 BMI result Body Mass Index 44.0 Tobacco/Smoking Status: Tobacco use Status Tobacco use date assessed 11/02/23 11/02/23 09:11 Patient Tobacco Use Status Former Tobacco user 11/02/23 09:11 e-Cigarette/Vaping Use Never Used 11/02/23 09:11 PHQ-9: PHQ-9 Score PHQ-9: Total score 0 11/02/23 09:11 Depression Screening Interpretation: Negative Thrive Assessment: Date of Thrive Assessment Date Thrive assessed 11/02/23 11/02/23 09:11 Currently or been in a relationship where the following occur: no concerns rep orted Const General: no acute distress, alert and awake Orientation/consciousness: patient oriented x3 HENMT Head: Yes normocephalic and Yes atraumatic Ears: external ears normal, TM's normal bilaterally and EAC's normal General nose exam: No nasal discharge present Face and sinus: Yes normal facial exam and Yes sinuses nontender Teeth and gingiva: dentition normal Throat: Yes posterior oropharynx normal and Yes tonsils normal (no TP congestion) Eyes Eyelids: Yes eyelids normal Conjunctivae: conjunctivae normal Pupils: Equal, round and reactive pupils present EOM: EOMs intact bilaterally Neck Neck: Yes no lymphadenopathy and Yes supple Thyroid: Thyroid normal Resp Auscultation: clear to auscultation bilaterally, no rales and no wheezes Cardio Rate: regular rate Rhythm: regular rhythm Heart sounds: no murmurs GI Palpation (GI): Soft to palpation, nontender and No hepatosplenomegaly present Auscultation: normal bowel sounds General: Yes no CVA tenderness Back/Spine/Pelvis Back: no CVA tenderness Thoracic/Lumbar Spine: thoracic and lumbar spine normal to inspection Skin Lesions: no lesions Rashes: no rashes Neuro General: patient oriented x3, moves all extremities, no focal motor deficits and CN's II-XI intact bilaterally Cranial nerves: Yes Equal, round and reactive pupils present Cognition (Neuro): normal cognition Gait exam (Neuro): Normal gait present Extrem General: Yes no clubbing, cyanosis or edema Results Reviewed Results Reviewed: Laboratory Tests 10/25/23 06:23 WBC 8.2 Hgb 13.3 L Hct 40.4 L Plt Count 232 Sodium 141 Potassium 4.3 Creatinine 0.85 Estimated GFR > 60 Fasting Glucose 149 H Hemoglobin A1c % 8.0 H Calcium 9.7 AST 23 ALT 19 Triglycerides 116 Cholesterol 131 LDL Cholesterol, Calc 67 HDL Cholesterol 41 25-OH Vitamin D Total 58.1 TSH 1.86 Ur Specific [place] 1.025 Urine Protein Trace Urine Glucose (UA) Negative Urine Blood Negative Urine Nitrite Negative Ur Leukocyte Esterase Negative Microalb/Creat Ratio 21.3 Assessment and Plan Assessment & Plan (1) Annual physical exam: Code(s): Z00.00 - Encounter for general adult medical examination without abnormal f indings Plan: Results of his labs done last week reviewed and discussed with patient He is due for his repeat colonoscopy with Dr. 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 Plan: His HgbA1c has increased to 8.0% on his labs done last week (was at 7.2% a few months ago) - goal is <7.0% Reinforced diabetic diet Continue Metformin 1000 mg BID; will increase his Lantus now to 20 units Q HS - new Rx sent Follow-up with endocrinology as scheduled (3) Pure hypercholesterolemia: Code(s): E78.00 - Pure hypercholesterolemia, unspecified Plan: Results of his labs done last week reviewed and discussed with patient Reinforced low-cholesterol diet Continue Pravastatin 20 mg QD Will recheck his labs and fasting lipids in 4 months for follow up (4) Elevated LFTs: Code(s): R79.89 - Other specified abnormal findings of blood chemistry Plan: Improved / resolved and his LFTs have remained normal on his recent labs - were most likely related to his weight (hepatosteatosis) Will continue to monitor his LFTs regularly (5) Vitamin D deficiency: Code(s): E55.9 - Vitamin D deficiency, unspecified Plan: Corrected - continue Vitamin D3 2000 units QD (6) Primary osteoarthritis of both knees: Code(s): M17.0 - Bilateral primary osteoarthritis of knee Plan: States that his knee pains have been mostly manageable Reminded again that losing some weight can help ease up on his knee pain/symptoms (7) Primary osteoarthritis, right shoulder: Code(s): M19.011 - Primary osteoarthritis, right shoulder Plan: His shoulder symptoms have also remained adequately controlled on his current meds lately Is again encouraged to continue with regular shoulder ROM exercises to help manage his joint pains and stiffness (8) Obstructive sleep apnea: Comment: On APAP [id number] Code(s): G47.33 - Obstructive sleep apnea (adult) (pediatric) Plan: Patient continues to use his autoPAP regularly when he is sleeping at night Follow up with Sleep Medicine as scheduled (9) Obesity (BMI 30-39.9): Code(s): E66.9 - Obesity, unspecified Plan: Reinforced diet/exercise as tolerated/lose weight (10) Colon cancer screening: Code(s): Z12.11 - Encounter for screening for malignant neoplasm of colon Plan: His colonoscopy was last done in [address] Hylton and was recommended repeat colonoscopy in 5 years due to his Hx of tubular adenoma Will refer him back to Dr. Hylton for repeat colonoscopy Plan Follow up in 4 months Orders: Orders Complete Blood Count Auto Diff 4 Months D64.9 - Anemia, unspecified, Z00.00 - Encounter for general adult medical examination without abnormal findings Comprehensive [place]. Panel Fast 4 Months E78.00 - Pure hypercholesterolemia, unspecified, Z00.00 - Encounter for general adult medical examination without abnormal findings Lipid Panel 4 Months E78.00 - Pure hypercholesterolemia, unspecified, Z00.00 - Encounter for general adult medical examination without abnormal findings Hemoglobin A1c 4 Months E11.9 - Type 2 diabetes mellitus without complications, Z00.00 - Encounter for general adult medical examination without abnormal findings UA CC w/rflx Micro + Cult 4 Months R30.0 - Dysuria, Z00.00 - Encounter for general adult medical examination without abnormal findings Prostate Specific Antigen 4 Months N40.0 - Benign prostatic hyperplasia without lower urinary tract symptoms, Z00.00 - Encounter for general adult medical examination without abnormal findings Microalbumin, Random (w Creat) 4 Months E11.9 - Type 2 diabetes mellitus without complications, Z00.00 - Encounter for general adult medical examination without abnormal findings TSH reflex Free T4 4 Months E78.00 - Pure hypercholesterolemia, unspecified, Z00.00 - Encounter for general adult medical examination without abnormal findings Vitamin D 25-OH Total 4 Months E55.9 - Vitamin D deficiency, unspecified, Z00.00 - Encounter for general adult medical examination without abnormal findings Referrals Gastroenterology Referral Z12.11 - Encounter for screening for malignant neoplasm of colon Medications: Changed From insulin glargine (Lantus U-100 Insulin) 10 units (0.1 mL) subcut QPM 90 days 10 mL 1RF E11.65 - Type 2 diabetes mellitus with hyperglycemia To insulin glargine (Lantus U-100 Insulin) 20 units (0.2 mL) subcut QPM 90 days 18 mL 1RF E11.65 - Type 2 diabetes mellitus with hyperglycemia Coding Level of Care Code Est Pt [facility] Care [id number]) Diagnoses Annual physical exam Z00.00 Type 2 diabetes mellitus without complication, with long-term current use of insulin E11.9; Z79.4 Diabetes mellitus type: type 2 Diabetes mellitus 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
== END 2023-11-02 09:53 | disposition home or self-care (01) ==
PROVIDERS: PCP Internal Medicine; Visit Provider Internal Medicine
DX: Z00.00 Encounter for general adult medical examination without abnormal findings (principal); E11.9 Type 2 diabetes mellitus without complications; Z79.4 Long term (current) use of insulin; E66.9 Obesity, unspecified; Z68.41 Body mass index [BMI] 40.0-44.9, adult; E78.00 Pure hypercholesterolemia, unspecified; R79.89 Other specified abnormal findings of blood chemistry; E55.9 Vitamin D deficiency, unspecified; M17.0 Bilateral primary osteoarthritis of knee; M19.011 Primary osteoarthritis, right shoulder; G47.33 Obstructive sleep apnea (adult) (pediatric); Z12.11 Encounter for screening for malignant neoplasm of colon
CPT/HCPCS: 99396

== ENCOUNTER 2024-02-28 06:03 | Outpatient (REF) | payer OTHER, SELFPAY ==
[2024-02-28 10:20] LABS: MANUAL DIFF FLAG NO
[2024-02-28 10:22] LABS: Appearance Urine Cloudy; Color Urine Yellow; Glucose Urine UA Negative (Negative); Leukocyte Esterase Urine Negative (Negative); Nitrite Urine Negative (Negative); PH 5.5 (5.0-9.0); Specific Gravity - Urine 1.025 (1.005-1.025); Urine Blood Negative (Negative); Urine Ketones Negative (Negative); Urine Protein Negative (Neg-Trace)
[2024-02-28 10:25] LABS: Basophils Percent Auto 0.5 % (0-2); Eosinophils Absolute Auto 0.1 X10*3/uL (0.0-0.4); Eosinophils Percent Auto 1.8 % (0-4); Hemoglobin 13.4 g/dl (14.0-18.0); Imm Gran Abs Auto 0.03 X10*3/uL (0.00-0.03); Imm Gran Pct Auto 0.4 % (0.0-0.4); Lymphocytes Absolute Auto 1.2 X10*3/uL (1.2-4.9); Lymphocytes Percent Auto 16.8 % (20-40); Mean Corpuscular HGB Conc 34.4 g/dl (31.0-36.0); Mean Corpuscular Hemoglobin 30.9 pg (27.0-33.0); Mean Corpuscular Volume 90.1 fL (80.0-98.0); Mean Platelet Volume 10.1 fL (9.4-12.4); Monocytes Absolute Auto 0.6 X10*3/uL (0.1-1.2); Monocytes Percent Auto 7.5 % (2-11); Neutrophils Absolute Auto 5.4 x10*3/uL (2.0-8.3); Platelet Count 191 X10*3/uL (160-400); Red Blood Count 4.33 X10*6/uL (4.60-5.80); White Blood Count 7.3 X10*3/uL (4.8-10.8)
[2024-02-28 11:04] LABS: Creatinine Urine 170.73 mg/dL; Microalbum/Creatinine Ratio Ur 17.5 ug/mg cr (<30)
[2024-02-28 11:13] LABS: Estimated Average Glucose 157 mg/dL; Hemoglobin A1c % 7.1 % (<6.0)
[2024-02-28 11:18] LABS: Prostate Specific Antigen 0.85 ng/mL (<0.05-4.0)
[2024-02-28 11:36] LABS: TSH reflex Free T4 1.51 uIU/mL (0.32-4.0); Vitamin D 25-OH Total 44.3 ng/mL (>30)
[2024-02-28 11:38] LABS: Anion Gap 16 (12-20)
[2024-02-28 11:43] LABS: Alanine Aminotransferase 18 U/L (0-40); Albumin Level 4.3 g/dL (3.5-5.0); Alkaline Phosphatase 119 U/L (39-117); Aspartate Amino Transferase 23 U/L (5-37); Bilirubin Total 1.2 mg/dL (0.0-1.0); Blood Urea Nitrogen 14 mg/dL (9-16); Calcium 9.8 mg/dL (8.4-10.2); Carbon Dioxide 26 mmol/L (22-29); Chloride 102 mmol/L (96-108); Cholesterol 135 mg/dL (<200); Estimated Glomerular Filt Rate > 60; Glucose Fasting 119 mg/dL (60-99); HDL Cholesterol 39 mg/dL (>40); LDL Cholesterol Calculated 79 mg/dL (<100); Potassium 3.8 mmol/L (3.3-5.1); Sodium 140 mmol/L (135-145); Triglycerides 86 mg/dL (<150)
== END 2024-02-28 06:04 | disposition home or self-care (01) ==
LOC: HO.HMGCLDS 06:03
PROVIDERS: PCP Internal Medicine; Visit Provider Internal Medicine
DX: Z00.00 Encounter for general adult medical examination without abnormal findings (principal); E78.00 Pure hypercholesterolemia, unspecified; R30.0 Dysuria; E55.9 Vitamin D deficiency, unspecified; D64.9 Anemia, unspecified; E11.9 Type 2 diabetes mellitus without complications; N40.0 Benign prostatic hyperplasia without lower urinary tract symptoms; Z12.5 Encounter for screening for malignant neoplasm of prostate
CPT/HCPCS: 36415; 80053; 80061; 81003; 82043; 82306; 82570; 83036; 84153; 84443; 85025

== ENCOUNTER 2024-02-29 10:26 | Outpatient (AMB) | payer OTHER, SELFPAY ==
[2024-02-29 10:36] VITALS: BP 128/62; PULSE 69; O2SAT 95; BMI 40.7
--- NOTE | 2024-02-29 10:36 | MHC.PC.OV ---
Vital Signs 02/29/24 10:36 Height 5 ft 7.5 in Weight 264 lb BMI 40.7 BP 128/62 Blood Pressure Location Lt brachial Position Sitting Pulse 69 Pulse Source Pulse Oximeter Pulse Oximetry (%) 95 Oxygen Delivery Method Room Air Intake Visit Reasons: 4mth f/u Allergies No Known Allergies [No Known Allergies*] Allergy (Verified 02/29/24 11:06) Medication List - Last Reconciled 02/29/24 by Tylor Fletcher MD blood sugar diagnostic (FreeStyle Lite Strips) USE TO TEST ONCE DAILY blood-glucose meter (FreeStyle Lite Meter kit) Test Daily cholecalciferol (vitamin D3) 50 mcg PO DAILY 90 days insulin glargine (Lantus U-100 Insulin) 20 units (0.2 mL) subcut QPM 90 days insulin syringe-needle U-100 Use Daily lancets (FreeStyle Lancets) USE TO TEST ONCE DAILY metformin 1,000 mg PO BID 90 days pravastatin 20 mg PO DAILY 90 days Tobacco use date assessed: 11/02/23 Fall risk assessment: No Falls in past year Last assessed Fall Risk: 02/29/24 Dental Screening Dental Screen Date: 11/02/23 HPI 4mth f/u HPI Details Patient comes in today for his follow up visit States that he feels okay He denies any headaches or dizziness Denies any chest pains, no SOB No nausea/vomiting, no abdominal pain No change in bowel habits noted He had his follow up labs done yesterday - to discuss his results Adds that he just noticed that his left big toenail appears darker in color and is very disfigured and thickened - would like to know who he can see to get this checked out and taken care of States that he has not seen a explosive expert in years He is also scheduled to see Dr. Hylton sometime this month, after which his colonoscopy will likely then be scheduled [facility] Medical History (Updated 02/29/24 @ 11:08 by Tylor Fletcher MD) Vitamin D deficiency Elevated LFTs Primary osteoarthritis, right shoulder Primary osteoarthritis of both knees Pure hypercholesterolemia Diabetes mellitus Surgical History H/O right knee surgery History of colonoscopy Family History Father Diabetes Gout CVD (cardiovascular disease) Cancer Mother Cancer Other Mental health disorder Social History Housing: House Alcohol intake: current Alcohol intake frequency: a few times a month Alcohol type: beer Patient Tobacco Use Status: Former Tobacco user Tobacco use type: Cigarette e-Cigarette/Vaping Use: Never Used Second Hand Smoke Exposure: No service: No Current occupational status: employed 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 1. Little interest or pleasure in doing things: not at all 2. Feeling down, depressed, or hopeless: not at all 3. Trouble falling or staying asleep, or sleeping too much: not at all 4. Feeling tired or having little energy: not at all 5. Poor appetite or overeating: not at all 6. Feeling bad about yourself - or that you are a failure or have let yourself or your family down: not at all 7. Trouble concentrating on things, such as reading the newspaper or watching television: not at all 8. Moving or speaking so slowly that other people could have noticed. Or the opposite - being so fidgety or restless that you have been moving around a lot more than usual: not at all 9. Thoughts that you would be better off or of hurting yourself in some way: not at all Total score: 0 Depression Screening Interpretation: Negative Depression Screening Done: Yes 15943 - PHQ-9 Billing: Yes Source: Developed by Drs. Tuan Pearce, Naty Mcleod, Babak Duff and colleagues, with an educational anupama from [employer]. Thrive Questionnaire Date Thrive assessed: 11/02/23 AUDIT C Alcohol Use Questionnaire (AUDIT-C) 1. How often do you have a drink containing alcohol?: Monthly or less 2. How many drinks containing alcohol do you have on a typical day when you are drinking?: 1 or 2 3. How often do you have six or more drinks on one occasion?: Never Total Score: 1 Score Reviewed/Action Taken: Yes CARTER-7 AMB Questionnaire CARTER-7 Date CARTER - 7 assessed: 11/02/23 Source: Developed by Drs. Tuan Pearce, Naty Mcleod, Babak Duff and colleagues, with an educational anupama from [employer]. Review of Systems Const Denies chills, Denies fatigue, Denies fever(s) and Denies headache(s) ENT Denies dysphagia, Denies dizziness, Denies otalgia, Denies headache(s), Denies neck pain, Denies odynophagia and Denies sore throat Card Denies chest pain, Denies irregular heart rhythm, Denies palpitations and Denies dyspnea Resp Denies cough, Denies dyspnea and Denies wheezing GI Denies abdominal pain, Denies constipation, Denies dysphagia, Denies heartburn, Denies diarrhea, Denies nausea, Denies odynophagia and Denies vomiting Denies difficulty urinating, Denies dysuria and Denies urinary frequency Musc Denies back pain, Denies arthralgias and Denies neck pain Skin/Breast Denies rash Neuro Denies dizziness, Denies headache(s) and Denies paresthesias Endo Denies fatigue and Denies palpitations Aller/Immun Denies wheezing Physical exam (Primary Care) Vital Signs: Last Vital Signs Pulse 69 02/29/24 10:36 BP 128/62 02/29/24 10:36 Pulse Ox 95 02/29/24 10:36 Oxygen Delivery Method Room Air 02/29/24 10:36 BMI result Body Mass Index 40.7 Tobacco/Smoking Status: Tobacco use Status Tobacco use date assessed 11/02/23 02/29/24 10:42 Patient Tobacco Use Status Former Tobacco user 02/29/24 10:42 Tobacco use type Cigarette 02/29/24 10:42 e-Cigarette/Vaping Use Never Used 02/29/24 10:42 PHQ-9: PHQ-9 Score PHQ-9: Total score 0 02/29/24 10:42 Depression Screening Interpretation: Negative Thrive Assessment: Date of Thrive Assessment Date Thrive assessed 11/02/23 02/29/24 10:42 Const General: no acute distress and alert HENMT Ears: TM's normal bilaterally and EAC's normal Throat: Yes posterior oropharynx normal and Yes tonsils normal (no TP congestion) Neck Neck: Yes no lymphadenopathy and Yes supple Thyroid: Thyroid normal Resp Auscultation: clear to auscultation bilaterally, no rales and no wheezes Cardio Rate: regular rate Rhythm: regular rhythm Heart sounds: no murmurs GI Palpation (GI): Soft to palpation and nontender Auscultation: normal bowel sounds General: Yes no CVA tenderness Back/Spine/Pelvis Back: no CVA tenderness Thoracic/Lumbar Spine: No lumbar spinal tenderness Skin Rashes: no rashes Extrem Other: (+) onycholysis of the toenail on the left big toe as well as a couple of other toes on the left foot; the toenail on the left big toe appears disfigured, thickened and dark in color General: Yes no clubbing, cyanosis or edema Results Reviewed Results Reviewed: Laboratory Tests 02/28/24 02/28/24 06:16 08:42 WBC 7.3 Hgb 13.4 L Hct 39.0 L Plt Count 191 Sodium 140 Potassium 3.8 Creatinine 0.86 Estimated GFR > 60 Fasting Glucose 119 H Hemoglobin A1c % 7.1 H Calcium 9.8 AST 23 ALT 18 Triglycerides 86 Cholesterol 135 LDL Cholesterol, Calc 79 HDL Cholesterol 39 L Prostate Specific Ag 0.85 25-OH Vitamin D Total 44.3 TSH 1.51 Ur Specific [place] 1.025 Urine Protein Negative Urine Glucose (UA) Negative Urine Blood Negative Urine Nitrite Negative Ur Leukocyte Esterase Negative Microalb/Creat Ratio 17.5 Assessment and Plan Assessment & Plan (1) Diabetes mellitus: Code(s): E11.9 - Type 2 diabetes mellitus without complications Qualifiers: Diabetes mellitus type: type 2 Diabetes mellitus group home insulin use: with long term care administrator use Diabetes mellitus complication status: without complication Qualified Code(s): E11.9 - Type 2 diabetes mellitus without complications; Z79.4 - long term care social worker (current) use of insulin Plan: His HgbA1c has improved to 7.1% on his labs done yesterday (was previously at 8.0% a few months ago) - goal is <7.0% Reinforced diabetic diet Continue Metformin 1000 mg BID and Lantus 20 units Q HS Follow-up with endocrinology as scheduled As he is a diabetic, will also refer him to podiatry for his annual foot exam (2) Pure hypercholesterolemia: Code(s): E78.00 - Pure hypercholesterolemia, unspecified Plan: Results of his labs done yesterday reviewed and discussed with patient Reinforced low-cholesterol diet Continue Pravastatin 20 mg QD Will recheck his labs and fasting lipids in 4 months for follow up (3) Elevated LFTs: Code(s): R79.89 - Other specified abnormal findings of blood chemistry Plan: Improved / resolved and his LFTs have remained normal on his recent labs - were most likely related to his weight (hepatosteatosis) Will continue to monitor his LFTs regularly (4) Vitamin D deficiency: Code(s): E55.9 - Vitamin D deficiency, unspecified Plan: Continue Vitamin D3 2000 units QD (5) Primary osteoarthritis of both knees: Code(s): M17.0 - Bilateral primary osteoarthritis of knee Plan: States that his knee pains have been mostly manageable Have reminded him again that losing some weight can help ease up a lot of his knee pain/symptoms (6) Primary osteoarthritis, right shoulder: Code(s): M19.011 - Primary osteoarthritis, right shoulder Plan: His shoulder symptoms have also remained adequately controlled on his current meds lately He is again encouraged to continue with regular shoulder ROM exercises to help manage his joint pains and stiffness (7) Obstructive sleep apnea: Comment: On APAP [id number] Code(s): G47.33 - Obstructive sleep apnea (adult) (pediatric) Plan: Patient continues to use his autoPAP regularly when he is sleeping at night Follow up with Sleep Medicine as scheduled (8) Onychomycosis of toenail: Code(s): B35.1 - Tinea unguium Plan: Will refer him to podiatry for further evaluation and management, as well as his annual foot exam as he is a diabetic (9) Obesity (BMI 30-39.9): Code(s): E66.9 - Obesity, unspecified Plan: Reinforced diet/exercise as tolerated/lose weight Plan Follow up in 4 months Orders: Orders Hemoglobin A1c 4 Months E11.9 - Type 2 diabetes mellitus without complications Lipid Panel 4 Months E78.00 - Pure hypercholesterolemia, unspecified Complete Blood Count Auto Diff 4 Months D64.9 - Anemia, unspecified Comprehensive [place]. Panel Fast 4 Months E78.00 - Pure hypercholesterolemia, unspecified Microalbumin, Random (w Creat) 4 Months E11.9 - Type 2 diabetes mellitus without complications Vitamin D 25-OH Total 4 Months E55.9 - Vitamin D deficiency, unspecified UA CC w/rflx Micro + Cult 4 Months R30.0 - Dysuria Referrals Podiatry Referral B35.1 - Tinea unguium, E11.9 - Type 2 diabetes mellitus without complications, Z79.4 - long term care social worker (current) use of insulin Coding Level of Care Code Est Pt Level 4 (68316) Complex EM visit Add On G2211 Diagnoses Type 2 diabetes mellitus without complication, with long-term current use of insulin E11.9; Z79.4 Diabetes mellitus type: type 2 Diabetes mellitus group home insulin use: with long term care administrator use Diabetes mellitus complication status: without complication Pure hypercholesterolemia E78.00 Elevated LFTs R79.89 Vitamin D deficiency E55.9 Primary osteoarthritis of both knees M17.0 Primary osteoarthritis, right shoulder M19.011 Obstructive sleep apnea G47.33 Onychomycosis of toenail B35.1 Obesity (BMI 30-39.9) E66.9
== END 2024-02-29 11:13 | disposition home or self-care (01) ==
PROVIDERS: PCP Internal Medicine; Visit Provider Internal Medicine
DX: E11.9 Type 2 diabetes mellitus without complications (principal); Z79.4 Long term (current) use of insulin; E78.00 Pure hypercholesterolemia, unspecified; R74.01 Elevation of levels of liver transaminase levels; E55.9 Vitamin D deficiency, unspecified; M17.0 Bilateral primary osteoarthritis of knee; M19.011 Primary osteoarthritis, right shoulder; G47.33 Obstructive sleep apnea (adult) (pediatric); B35.1 Tinea unguium
CPT/HCPCS: 99214

== ENCOUNTER 2024-04-30 08:27 | Outpatient (AMB) | payer OTHER, SELFPAY ==
--- NOTE | 2024-04-30 08:30 | A.OFFVIS_ITS ---
Vital Signs 04/30/24 08:32 Height 5 ft 7 in Weight 265 lb BMI 41.5 BP 140/88 H Blood Pressure Location Rt brachial Position Sitting Intake Visit Reasons: 1 yr f/u for sleep Intake Note: Patient presents for follow up sleep. Patient sleeping throught the nigt Allergies No Known Allergies [No Known Allergies*] Allergy (Verified 04/30/24 08:36) Medication List - Last Reconciled 04/30/24 by GLYNN Sandoval blood sugar diagnostic (FreeStyle Lite Strips) USE TO TEST ONCE DAILY blood-glucose meter (FreeStyle Lite Meter kit) Test Daily cholecalciferol (vitamin D3) 50 mcg PO DAILY 90 days insulin glargine (Lantus U-100 Insulin) 20 units (0.2 mL) subcut QPM 90 days insulin syringe-needle U-100 Use Daily lancets (FreeStyle Lancets) USE TO TEST ONCE DAILY metformin 1,000 mg PO BID 90 days pravastatin 20 mg PO DAILY 90 days HPI Comments Details: 63-yr-old male presents for follow-up visit of sleep apnea. Pt denies any significant interval medical history changes. Pt reports he is sleeping well with his CPAP. He only does not sleep with it if he is camping (does tent camping and does not have access to electricity) or on his boat. He does clean his PAP supplies. Uses tap water- but his town water is clean. Receiving PAP supplies on auto-shipment. His machine has been making a noise, but still functioning. Note pt will be retiring next December 2024. [facility] 01/30/24-04/28/24APAP compliance report reveals APAP 5-20 cmH2O w/ EPR 3 with max pressure of 10/7 cmH2O; overall usage of 94% with usage > 4 hours of 89%; and residual AHI of 0.9/hr. [facility], [facility] Medical History Vitamin D deficiency Elevated LFTs Primary osteoarthritis, right shoulder Primary osteoarthritis of both knees Pure hypercholesterolemia Diabetes mellitus Surgical History H/O right knee surgery History of colonoscopy Family History Father Diabetes Gout CVD (cardiovascular disease) Cancer Mother Cancer Other Mental health disorder Social History Housing: House Alcohol intake: current Alcohol intake frequency: a few times a month Alcohol type: beer Patient Tobacco Use Status: Former Tobacco user Tobacco use type: Cigarette e-Cigarette/Vaping Use: Never Used Second Hand Smoke Exposure: No service: No Current occupational status: employed 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 Cognitive needs: No Hearing needs: No Vision needs: Yes (glasses) Physical Exam Vital Signs: Last Vital Signs BP 140/88 H 04/30/24 08:32 BMI result Body Mass Index 41.5 Const General: no acute distress Orientation/consciousness: patient oriented x3 HEENT Other: Mallampati stage Resp Effort & Inspection: normal respiratory effort and able to speak in complete sentences Neuro General: patient oriented x3 Psych Mental Status: mental status grossly normal Speech and movement: Clear speech present Attitude: cooperative Assessment & Plan Assessment & Plan (1) Obstructive sleep apnea: Comment: On APAP [id number], HST Results- AHI 10/hr supine 55/hr O2 dequan 87% Code(s): G47.33 - Obstructive sleep apnea (adult) (pediatric) Category: Medical Plan Continue APAP 5-20 cmH2O w/ EPR 3 nightly > 4 hours, as pt continues to have good clinical effect from use.. Clean CPAP machine and supplies routinely. Change CPAP supplies routinely. Note pt will require updated sleep study at his f/u appt- as he will convert to Medicare upon retiring next year. Pt to contact us or respiratory company with any questions or concerns. Coding Level of Care Code Est Pt Level 3 (79605) Diagnoses Obstructive sleep apnea G47.33
[2024-04-30 08:32] VITALS: BP 140/88; BMI 41.5
== END 2024-04-30 09:09 | disposition home or self-care (01) ==
PROVIDERS: Absent Provider Nurse Practitioner Family; Visit Provider Nurse Practitioner Family
DX: G47.33 Obstructive sleep apnea (adult) (pediatric) (principal)
CPT/HCPCS: 99213

== ENCOUNTER → 2024-04-30 08:27 | Outpatient (BNVA) | payer OTHER, SELFPAY | PROVIDERS: Absent Provider Nurse Practitioner Family; Visit Provider Nurse Practitioner Family ==

== ENCOUNTER 2024-06-29 10:23 | Day surgery (SDC) | payer OTHER, SELFPAY ==
[2024-06-27 15:10] VITALS: BMI 40.6
--- NOTE | 2024-06-28 09:58 | P.CONAN_ITS ---
Documented by User: Corie Macdonald NP 06/28/24 09:59 HPI - Anesthesia Eval Consult details Narrative: 63yo M for Colonoscopy PMFSH Active Problems Active Problems: All Active Problems Onychomycosis of toenail (Acute) Colon cancer screening (Acute) Open wound, hand (Acute) Cataract, left eye (Acute) Preoperative examination (Acute) Hypercholesteremia (Acute) Obesity (BMI 30-39.9) (Acute) Diabetes mellitus with insulin therapy (Acute) Type 2 diabetes mellitus, uncontrolled (Acute) Screening for osteoporosis (Acute) Prostate cancer screening (Acute) Screening for diabetes mellitus (Acute) Annual physical exam (Acute) Obstructive sleep apnea (Acute) Vitamin D deficiency (Acute) Elevated LFTs (Acute) Primary osteoarthritis, right shoulder (Acute) Primary osteoarthritis of both knees (Acute) Pure hypercholesterolemia (Acute) Diabetes mellitus (Acute) Past Medical History Medical History Sleep apnea Meningitis spinal Vitamin D deficiency Elevated LFTs Primary osteoarthritis, right shoulder Primary osteoarthritis of both knees Pure hypercholesterolemia Diabetes mellitus Family History Family History Father Diabetes Gout CVD (cardiovascular disease) Cancer Mother Cancer Other Mental health disorder Surgical History Surgical History Hx of cataract extraction H/O right knee surgery History of colonoscopy Social History Social History Housing: House Alcohol intake: current Alcohol intake frequency: a few times a month Alcohol type: beer Patient Tobacco Use Status: Former Tobacco user Tobacco use type: Cigarette e-Cigarette/Vaping Use: Never Used Second Hand Smoke Exposure: No Use of substances other than those prescribed or required for medical reasons: No Have you been hit, kicked, punched, or otherwise hurt by someone within the past year? 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 Cognitive needs: No Hearing needs: No Vision needs: Yes (glasses) Meds Allergies Allergy/AdvReac Type Severity Reaction Status Date / Time No Known Allergies Allergy Verified 06/29/24 11:07 [No Known Allergies*] Exam Height,Weight and Vital Signs: Height 5 ft 8 in Weight 121.109 kg Assessment and Plan Assessment Anesthesia Assessment: Chart Reviewed Documented by User: Regino Salgado MD 06/29/24 11:41 PMFSH Past Medical History Medical History Sleep apnea Meningitis spinal Vitamin D deficiency Elevated LFTs Primary osteoarthritis, right shoulder Primary osteoarthritis of both knees Pure hypercholesterolemia Diabetes mellitus Family History Family History Father Diabetes Gout CVD (cardiovascular disease) Cancer Mother Cancer Other Mental health disorder Family history of problems with anesthesia: No Surgical History Surgical History Hx of cataract extraction H/O right knee surgery History of colonoscopy History of Problems with Anesthesia: No Social History Social History Housing: House Alcohol intake: current Alcohol intake frequency: a few times a month Alcohol type: beer Patient Tobacco Use Status: Former Tobacco user Tobacco use type: Cigarette e-Cigarette/Vaping Use: Never Used Second Hand Smoke Exposure: No Use of substances other than those prescribed or required for medical reasons: No Have you been hit, kicked, punched, or otherwise hurt by someone within the past year? 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 Cognitive needs: No Hearing needs: No Vision needs: Yes (glasses) Meds Allergies Allergy/AdvReac Type Severity Reaction Status Date / Time No Known Allergies Allergy Verified 06/29/24 11:07 [No Known Allergies*] Exam Airway Mallampati Class: II TM Dist: <=3cm Neck ROM: Full Denture: Upper and Lower Heart: ok Lungs: ok Assessment and Plan Assessment Anesthesia Assessment: Anesthesia Plan Discussed Final Anesthetic Review Family History of Problems with Anesthesia: No History of Problems with Anesthesia: No NPO: Yes ASA Class: III Final Preanesthetic Review: No Changes in Pt Med Stat, Meds/Allgs Chart Reviewed, Consent Obtained/Reviewed and Anes Risks/Benef Reviewed Patient Risk: High Procedure Risk: Low Anesthetic Plan Anesthetic Plan: Agree w/ Assess. and Plan and TIVA Disposition: Standard PACU
[2024-06-29 10:41] VITALS: BMI 39.5
[2024-06-29 11:05] VITALS: BP 146/80; PULSE 74; RESP 16; TEMP 36.1; O2SAT 98
[2024-06-29] MEDS: Lactated Ringers 1,000 ML 100 ML IVCONT (11:06)
[2024-06-29 11:15] LABS: Glucose, Whole Blood 112 mg/dL (60-115)
--- NOTE | 2024-06-29 12:15 | PM.OP ---
Brief Operative Note Date of Service: 06/29/24 Pre-op diagnosis: Screening Post-op diagnosis: other (Polyp) Procedure: Colonoscopy to the cecum and TI with hot snare polypectomy x 1 Surgeon: Tuan Hylton MD Anesthesia: MAC Was an Nurse Epidemiologist used for this Procedure?: No Estimated blood loss (mL): 0 Pathology: other (A. Polyp at 15cm) Condition: stable Disposition: PACU
[2024-06-29 12:16] VITALS: BP 98/63; PULSE 91; RESP 18; TEMP 36.6; O2SAT 97
--- NOTE | 2024-06-29 12:26 | OP_ITS ---
DATE OF SERVICE: 06/29/2024 SURGEON: Tuan Hylton MD INDICATIONS: The patient presents for followup of personal history of tubular adenoma of the colon, colorectal cancer screening. Full consent obtained from him for this, including risks of bleeding and perforation. PREOPERATIVE DIAGNOSIS: Colorectal cancer screening and personal history of tubular adenoma of the colon. POSTOPERATIVE DIAGNOSIS: Colorectal cancer screening and personal history of tubular adenoma of the colon, colon polyp, diverticulosis, and internal hemorrhoids. PROCEDURE PERFORMED: Colonoscopy to the cecum and terminal ileum with hot snare polypectomy. ESTIMATED BLOOD LOSS: COMPLICATIONS: ANESTHESIA: Monitored anesthesia care. ASSISTANTS: SPECIMENS: DESCRIPTION OF PROCEDURE: The patient was placed in the left lateral decubitus position. The digital rectal exam revealed no abnormalities. The Olympus video pediatric colonoscope was entered into the rectum, advanced easily to the cecum. Once in the cecum, I did identify normal-appearing cecal pouch with appendiceal orifice and a normal-appearing ileocecal valve. The terminal ileum was cannulated and appeared normal. Scope was withdrawn back in the colon. The entire cecum and ileocecal valve appeared normal. The scope was slowly withdrawn assessing all mucosal surfaces carefully. Preparation was excellent. At 15 cm, was an approximately 8 to 10 mm polyp, which was removed by hot snare polypectomy, recovered by suction. The polypectomy site appeared clean, without any sign of residual polyp nor bleeding. I did not visualize any other polyps, colitis, or angiodysplasia. There was a mild amount of sigmoid diverticulosis. In the rectum, scope was retroflexed visualizing internal hemorrhoids, but no other pathology. The rectal mucosa appeared normal. The scope was straightened and withdrawn from the patient. He tolerated the procedure well and was returned to recovery area in stable condition. IMPRESSION: 1. Colon polyp. 2. Diverticulosis. 3. Internal hemorrhoids. PLAN: I would recommend a repeat colonoscopy in 5 years. He was advised not to use any aspirin and NSAIDs for 1 week. MD SERGIO Correia/ALVINO / [phone]
[2024-06-29 12:31] VITALS: BP 112/76; PULSE 78; RESP 16; TEMP 36.1; O2SAT 98
--- OUTSIDE RECORDS SUMMARY | 2024-07-04 07:22 | XMS_ITS ---
Author Organization [facility] Address [address] [place] [address] Care Team Providers Care Supervisor Of Research Name Role Phone Chance GARCIA, [place] Primary Care Provider Unava ilable Tuan Hylton Unavailable [phone] REASON FOR VISIT screening,hx polyps Encounters Encounter Location Date Provider Diagnosis [facility] Outpatient [address], [place] [phone] 06/29/2024 Tuan Hylton PLAN OF TREATMENT No Information
--- OUTSIDE RECORDS SUMMARY | 2024-07-04 07:22 | XMS_ITS ---
Author Organization [facility] Address [address] [place] [address] Care Team Providers Care Floorleader Name Role Phone Chance GARCIA, [place] Primary Care Provider Tuan Major Unavailable [phone] ALLERGIES No Known Allergies REASON FOR VISIT Patient presents today for a COLON SCREENING MEDICATIONS Medication SIG (Take, Route, Frequency, Duration) Notes Start Date End Date Status Lantus 100 UNIT/ML INJECT 20 UNITS SUBCUTANEOUSLY EVERY EVENING Subcutaneous for 28 Active Pravastatin Sodium 20 MG 1 tablet Orally Once a day Active ibuprofen 1 tab Oral as needed Not-Taking metFORMIN HCl 1000 MG TAKE 1 TABLET BY M OUTH TWICE A DAY Oral for 90 Active Aspirin Adult Low Dose 81 MG 1 tablet Orally Once a day Not-Taking SOCIAL HISTORY Tobacco Use: Social History Observation Description Date Details (start date - stop date) Former Smoker NA - NA Sex Assigned At : Social History Observation Description Sex Assigned At Unknown Tobacco Use/Smoking Question Answer Notes Patient is a former smoker How long has it been since you last smoked? 1-5 years Alcohol Screen Question Answer Notes Did you have a drink contain ing alcohol in the past year? Yes How often did you have a dri nk containing alcohol in the past year? 4 or more times a week (4 points) How many drinks did you have on a typical day when you were drinking in the past year? 1 or 2 drinks (0 point) How often did you have 6 or more drinks on one occasion in the past year? Never (0 point) Points 4 Interpretation Positive VITAL SIGNS BMI 40.59 kg/m2 03/20/2024 Blood pressure systolic 00 mm Hg 03/20/20 24 Blood pressure diastolic 00 mm Hg 024 Height 68 in 03/20/2024 Weight 267 lbs 03/20/2024 Encounters Encounter Location Date Provider Diagnosis [facility] [address] [place] [address] 03/20/2024 Tuan Hylton History of adenomato us polyp of colon Z86.010 ; Preprocedural examination Z01.818 and Encounter for screening for malignant neoplasm of colon Z12.11 ASSESSMENTS Encounter Date Diagnosis Assessment Notes Treatment Notes Treatment Clinical Notes 03/20/2024 History of adenomatous polyp of colon (ICD-10 - Z86.010) Do not take Metformin the night before nor on the morning of the colonoscopy Take 1/2 your usual Insulin the night before the colonosocpy 03/20/2024 Preprocedural examination (ICD-10 - Z01.818) 03/20/2024 Encounter for screening for malignant neoplasm of colon (ICD-10 - Z12.11) PLAN OF TREATMENT Treatment Notes Assessment Notes History of adenomatous polyp of colon Do not take Metformin the night before nor on the morning of the colonoscopy Take 1/2 your usual Insulin the night before the colonosocpy Future Test Test Name Order Date COLONOSCOPY 03/20/2024 Next Appt Details Follow Up: prn, Reason: Progress Notes * Examination Category Sub-Category Detail Notes General Examination GENERAL APPEARANCE: pleasant , well nourished, well developed, in no acute distress HEAD: EYES: sclera non-icteric EARS: NOSE: THROAT: NECK/THYROID: no cervical lymphade nopathy, neck supple HEART: S1, S2 normal CHEST: LUNGS: clear to auscultatio n bilaterally ABDOMEN: normal bowel sounds, no guarding or rigidity, no guarding or rigidity, no masses palpable, soft, nontender, nondistended NEUROLOGIC: alert and oriented SKIN: nonjaundiced, no spi kathleen angiomata EXTREMITIES: no edema PERIPHERAL PULSES: BACK: BREASTS: MUSCULOSKELETAL: MALE GENITOURINARY: LYMPH NODES: RECTAL EXAM: FEMALE GENITOURINARY: ORAL CAVITY: mucosa moist
--- OUTSIDE RECORDS SUMMARY | 2024-07-04 07:22 | XMS_ITS | Patient Health Record ---
Author Organization [facility] Address [address] [place] [address] Care Team Providers Care Fish Hatchery Specialist Name Role Phone Chance GARCIA, [place] Primary Care Provider Tuan Major Unavailable [phone] ALLERGIES No Known Allergies RESULTS Component Value Reference Range Notes Pathology (Not yet reviewed by provider) Interpretation: Performing Lab:[facility], [address] [place] [phone] Notes/Report: Glucose, Whole Blood Reviewed date:06/29/2024 04:30:10 PM Interpretation: Performing Lab:[facility], [address] [place] [phone] Notes/Report: Glucose, Whole Blood 112 60-115 mg/dL METER # : [id number] REASON FOR REFERRAL No Information MEDICATIONS Medication SIG (Take, Route, Frequency, Duration) [...] Never (0 point) Points 4 Interpretation Positive PROBLEMS Problem Type ICD Code Onset Dates Problem Status W/U Status Risk SNOMED Code Notes Problem History of adenomatous polyp of colon (Z86.010) Active confirmed 431371863 Problem Encounter for screening for malignant neoplasm of colon (Z12.11) Active confirmed 763708775 Problem Preprocedural examination (Z01.818) Active confirmed 781541509 VITAL SIGNS Blood pressure diastolic 00 mm Hg 03/20/2024 Height 68 in 03/20/2024 Blood pressure systolic 00 mm Hg 03/20/2024 Weight 267 lbs 03/20/2024 BMI 40.59 kg/m2 03/20/2024 Encounters Encounter Location Date Provider Diagnosis [facility] [place] [facility] [address] [place], [place] [phone] 06/29/2024 Tuan Hylton [facility] [address] [place] [address] 03/20/2024 Tuan Hylton History of adenomato us [...] colon (ICD-10 - Z12.11) PLAN OF TREATMENT Pending Test Test Name Order Date Pathology 06/29/2024 Future Test Test Name Order Date COLONOSCOPY 12/02/2016 COLONOSCOPY 03/20/2024 Insurance Providers Payer Name Payer Address Payer Phone Subscriber Number Group Number Insured Name Patient Relationship to Insured Coverage Start Date Coverage End Date [facility] [address] [place] [phone] [id number] KIMBERLY EMERSON Self - patient is the insured MEDICAL (GENERAL) HISTORY Medical History History ICD Code Screening colonoscopy 2009 --tubular adenomas, divertciulosis, small internal hemorrhoids Denies [place],CVA,Lung disease,renal disease Spinal meningitis -2004 Hyperlipidemia IDDM Negative colonoscopy in 02/2017 Surgical History Surgery Date(Month/Year) Knee surgery-left Left cataract
== END 2024-06-29 12:45 | disposition home or self-care (01) ==
PROVIDERS: PCP Internal Medicine; Visit Provider Internal Medicine
PROC: 0DJD8ZZ Inspection of Lower Intestinal Tract, Via Natural or Artificial Opening Endoscopic (ICD-10-PCS; CPT 45378; principal; 2024-06-29 11:30)
DX: Z12.11 Encounter for screening for malignant neoplasm of colon (principal); K63.5 Polyp of colon; K57.30 Diverticulosis of large intestine without perforation or abscess without bleeding; K64.8 Other hemorrhoids; Z86.0101 Personal history of adenomatous and serrated colon polyps; E11.9 Type 2 diabetes mellitus without complications; G47.33 Obstructive sleep apnea (adult) (pediatric); Z87.891 Personal history of nicotine dependence; Z79.4 Long term (current) use of insulin; Z79.84 Long term (current) use of oral hypoglycemic drugs; Z79.82 Long term (current) use of aspirin; Z79.899 Other long term (current) drug therapy
CPT/HCPCS: 45385; 82947; 88305; J2003; J2704

== ENCOUNTER 2024-07-03 16:47 | Outpatient (AMB) | payer OTHER, SELFPAY ==
[2024-07-03 16:48] VITALS: BP 130/82; PULSE 70; O2SAT 96; BMI 41.2
--- NOTE | 2024-07-03 16:48 | A.OFFPC_ITS ---
Vital Signs 07/03/24 16:48 Height 5 ft 8 in Weight 271 lb 4 oz BMI 41.2 BP 130/82 Blood Pressure Location Lt brachial Position Sitting Pulse 70 Pulse Source Pulse Oximeter Pulse Oximetry (%) 96 Oxygen Delivery Method Room Air Intake Visit Reasons: 4 Month F/U It Software Engineer Required: No Accompanied by: Self / Same As Patient Allergies No Known Allergies [No Known Allergies*] Allergy (Verified 07/03/24 17:14) Medication List - Last Reconciled 07/03/24 by Tylor Fletcher MD blood sugar diagnostic (FreeStyle Lite Strips) USE TO TEST ONCE DAILY blood-glucose meter (FreeStyle Lite Meter kit) Test Daily cholecalciferol (vitamin D3) 50 mcg PO DAILY 90 days insulin glargine (Lantus U-100 Insulin) 20 units (0.2 mL) subcut QPM 90 days insulin syringe-needle U-100 Use Daily insulin syringe-needle U-100 (BD Insulin Syringe Ultra-Fine) As directed lancets (FreeStyle Lancets) USE TO TEST ONCE DAILY metformin 1,000 mg PO BID 90 days pravastatin 20 mg PO DAILY 90 days Tobacco use date assessed: 07/03/24 Fall risk assessment: No Falls in past year Last assessed Fall Risk: 07/03/24 Dental Screening Dental Screen Date: 07/03/24 Did you have a dental visit in the last 12 months?: No Did you have a dental problem in the last 6 months where you did not have access to dental care?: No Was dental information given to patient?: No HPI 4 Month F/U HPI Details The patient is here for follow up visit reports that he thought his appt was on another date so he did not do blood work reports only general joint pain here and there reports that it is not much reports that he his going to see podiatry 08/03/24 denies numbness and tingling in his feet denies walking barefoot unless he is at the pool The patient denies chest, sob, heart palpitation or dizziness denies any changes in his vision reports cataract removed from left eye in the past States that he just needs his glucometer test strips Rx refilled today and will try to get his follow up labs done tomorrow morning [facility] Medical History Sleep apnea Meningitis spinal Vitamin D deficiency Elevated LFTs Primary osteoarthritis, right shoulder Primary osteoarthritis of both knees Pure hypercholesterolemia Diabetes mellitus Surgical History Hx of cataract extraction H/O right knee surgery History of colonoscopy Family History Father Diabetes Gout CVD (cardiovascular disease) Cancer Mother Cancer Other Mental health disorder Social History Housing: House Alcohol intake: current Alcohol intake frequency: a few times a month Alcohol type: beer Patient Tobacco Use Status: Former Tobacco user Tobacco use type: Cigarette e-Cigarette/Vaping Use: Never Used Second Hand Smoke Exposure: No service: No Current occupational status: employed 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 1. Little interest or pleasure in doing things: not at all 2. Feeling down, depressed, or hopeless: not at all 3. Trouble falling or staying asleep, or sleeping too much: not at all 4. Feeling tired or having little energy: not at all 5. Poor appetite or overeating: not at all 6. Feeling bad about yourself - or that you are a failure or have let yourself or your family down: not at all 7. Trouble concentrating on things, such as reading the newspaper or watching television: not at all 8. Moving or speaking so slowly that other people could have noticed. Or the opposite - being so fidgety or restless that you have been moving around a lot more than usual: not at all 9. Thoughts that you would be better off or of hurting yourself in some way: not at all Total score: 0 Depression Screening Interpretation: Negative Depression Screening Done: Yes 45580 - PHQ-9 Billing: Yes Source: Developed by Drs. Tuan Pearce, Naty Mcleod, Babak Duff and colleagues, with an educational anupama from [employer]. Thrive Questionnaire Date Thrive assessed: 07/03/24 I am a: Patient What is your living situation today?: I have a steady place to live Within the past 12 months, did the food you bought not last and you didn't have the money to get more?: Never true Within the past 12 months, did you worry whether your food would run out before you got money to buy more?: Never true Do you have trouble paying for medicines?: No Do you have trouble getting transportation to medical appointments?: No Do you have trouble paying your heating and electricity bill?: No Do you have trouble taking care of your child, family member or friend?: No Do you have trouble with day-to-day activities such as bathing, preparing meals, shopping, managing finances, etc.?: No Are you currently unemployed and looking for a job?: No Are you interested in more education?: No Please select the resources that you would like help with: None Currently or been in a relationship where the following occur: No concerns reported THRIVE Score: 0 AUDIT C Alcohol Use Questionnaire (AUDIT-C) 1. How often do you have a drink containing alcohol?: Monthly or less 2. How many drinks containing alcohol do you have on a typical day when you are drinking?: 1 or 2 3. How often do you have six or more drinks on one occasion?: Never Total Score: 1 Score Reviewed/Action Taken: Yes CARTER-7 AMB Questionnaire CARTER-7 Date CARTER - 7 assessed: 07/03/24 Feeling nervous, anxious, or on edge: 0 = Not at all Not being able to stop or control worryin = Not at all Worrying too much about different things: 0 = Not at all Trouble relaxin = Not at all Being so restless that it is hard to sit still: 0 = Not at all Becoming easily annoyed or irritable: 0 = Not at all Feeling afraid as if something awful might happen: 0 = Not at all Total CARTER-7 score (0-4 normal; 5-9 mild; 10-14 moderate; 15-21 severe): 0 Source: Developed by Drs. Tuan Pearce, Naty Mcleod, Babak Duff and colleagues, with an educational anupama from [employer]. Review of Systems Const Denies chills, Denies fatigue, Denies fever(s) and Denies headache(s) ENT Denies dysphagia, Denies dizziness, Denies otalgia, Denies headache(s), Denies neck pain, Denies odynophagia and Denies sore throat Card Denies chest pain, Denies irregular heart rhythm, Denies palpitations and Denies dyspnea Resp Denies cough, Denies dyspnea and Denies wheezing GI Denies abdominal pain, Denies constipation, Denies dysphagia, Denies heartburn, Denies diarrhea, Denies nausea, Denies odynophagia and Denies vomiting Denies difficulty urinating, Denies dysuria and Denies urinary frequency Musc Denies back pain, Denies arthralgias and Denies neck pain Skin/Breast Denies rash Neuro Denies dizziness, Denies headache(s) and Denies paresthesias Endo Denies fatigue and Denies palpitations Aller/Immun Denies wheezing Physical exam (Primary Care) Vital Signs: Last Vital Signs Pulse 70 07/03/24 16:48 BP 130/82 07/03/24 16:48 Pulse Ox 96 07/03/24 16:48 Oxygen Delivery Method Room Air 07/03/24 16:48 BMI result Body Mass Index 41.2 Tobacco/Smoking Status: Tobacco use Status Tobacco use date assessed 07/03/24 07/03/24 16:54 Patient Tobacco Use Status Former Tobacco user 07/03/24 16:54 Tobacco use type Cigarette 07/03/24 16:54 e-Cigarette/Vaping Use Never Used 07/03/24 16:54 PHQ-9: PHQ-9 Score PHQ-9: Total score 0 07/03/24 17:15 Depression Screening Interpretation: Negative Thrive Assessment: Date of Thrive Assessment Date Thrive assessed 07/03/24 07/03/24 16:54 Currently or been in a relationship where the following occur: No concerns reported Const General: no acute distress and alert HENMT Ears: TM's normal bilaterally and EAC's normal Throat: Yes posterior oropharynx normal and Yes tonsils normal (no TP congestion) Neck Neck: Yes supple and No lymphadenopathy Thyroid: Thyroid normal Resp Auscultation: clear to auscultation bilaterally, no rales and no wheezes Cardio Rate: regular rate Rhythm: regular rhythm Heart sounds: no murmurs GI Palpation (GI): Soft to palpation and nontender Auscultation: normal bowel sounds General: Yes no CVA tenderness Back/Spine/Pelvis Back: no CVA tenderness Thoracic/Lumbar Spine: No lumbar spinal tenderness Skin Rashes: no rashes Extrem General: Yes no clubbing, cyanosis or edema Results AMB Hemoglobin A1c AMB Hemoglobin A1c 7.5 % Last Edit by KATINA Walsh on 07/03/24 17 :06 Results Reviewed Results Reviewed: Laboratory Last Values Hgb A1c (Clinic) 7.5 % (4.0-6.0) H 07/03/24 17:05 Coding Level of Care Code Est Pt Level 4 (76584) Diagnoses Type 2 diabetes mellitus without complication, with long-term current use of insulin E11.9; Z79.4 Diabetes mellitus type: type 2 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 insulin 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: with fpc use Diabetes mellitus complication status: without complication Pure hypercholesterolemia E78.00 Elevated LFTs R79.89 Vitamin D deficiency E55.9 Primary osteoarthritis of both knees M17.0 Primary osteoarthritis, right shoulder M19.011 Obstructive sleep apnea G47.33 Obesity (BMI 30-39.9) E66.9 Additional Codes PHQ-9 - 12928 - PHQ-9 Billing: Yes ([id number]) Assessment & Plan Assessment & Plan (1) Diabetes mellitus: Code(s): E11.9 - Type 2 diabetes mellitus without complications Category: Medical Qualifiers: Diabetes mellitus type: type 2 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 insulin use: with steel rule die maker apprentice use Diabetes mellitus complication status: without complication Qualified Code(s): E11.9 - Type 2 diabetes mellitus without complications; Z79.4 - printing table hand (current) use of insulin Plan: His in-office HgbA1c today is at 7.5% (his HgbA1c was at 7.1% a few months ago) - goal is <7.0% Reinforced diabetic diet Continue Metformin 1000 mg BID and Lantus 20 units Q HS for now Follow-up with endocrinology as scheduled (2) Pure hypercholesterolemia: Code(s): E78.00 - Pure hypercholesterolemia, unspecified Category: Medical Plan: Patient was not able to get his follow-up labs done prior to his appointment tohernandez epperson - states that he will try to get these done tomorrow morning Reinforced low-cholesterol diet Continue Pravastatin 20 mg QD Will recheck his labs and fasting lipids in 4 months for follow up (3) Elevated LFTs: Code(s): R79.89 - Other specified abnormal findings of blood chemistry Category: Medical Plan: Improved / resolved and his LFTs have remained normal on his previous labs - were most likely related to his weight (hepatosteatosis) Will continue to monitor his LFTs regularly (4) Vitamin D deficiency: Code(s): E55.9 - Vitamin D deficiency, unspecified Category: Medical Plan: Continue Vitamin D3 2000 units QD (5) Primary osteoarthritis of both knees: Code(s): M17.0 - Bilateral primary osteoarthritis of knee Category: Medical Plan: Patient states that his knee pains have been mostly manageable Have reminded him again that losing some weight can help ease up a lot of his knee pain/symptoms (6) Primary osteoarthritis, right shoulder: Code(s): M19.011 - Primary osteoarthritis, right shoulder Category: Medical Plan: His shoulder symptoms have also remained adequately controlled on his current meds He is again encouraged to continue with regular shoulder ROM exercises to help manage his joint pains and stiffness (7) Obstructive sleep apnea: Comment: On APAP [id number], HST Results- AHI 10/hr supine 55/hr O2 dequan 87% Code(s): G47.33 - Obstructive sleep apnea (adult) (pediatric) Category: Medical Plan: Patient continues to use his autoPAP regularly when he is sleeping at night and feels that it has and is still helping him a lot Follow up with Sleep Medicine as scheduled (8) Obesity (BMI 30-39.9): Code(s): E66.9 - Obesity, unspecified Category: Medical Plan: Reinforced diet/exercise as tolerated/lose weight Plan Follow up in 4 months Orders: Orders AMB Hemoglobin A1c 07/03/24 Z13.9 - Encounter for screening, unspecified Complete Blood Count Auto Diff 4 Months D64.9 - Anemia, unspecified Comprehensive Andreas. Panel Fast 4 Months E78.00 - Pure hypercholesterolemia, unspecified Vitamin D 25-OH Total 4 Months E55.9 - Vitamin D deficiency, unspecified Lipid Panel 4 Months E78.00 - Pure hypercholesterolemia, unspecified Hemoglobin A1c 4 Months E11.9 - Type 2 diabetes mellitus without complications Microalbumin, Random (w Creat) 4 Months E11.9 - Type 2 diabetes mellitus without complications TSH reflex Free T4 4 Months E78.00 - Pure hypercholesterolemia, unspecified UA CC w/rflx Micro + Cult 4 Months R30.0 - Dysuria Medications: Refilled blood sugar diagnostic (FreeStyle Lite Strips) USE TO TEST ONCE DAILY 100 strips 5RF E11.65 - Type 2 diabetes mellitus with hyperglycemia, E11.9 - Type 2 diabetes mellitus without complications, Z79.4 - residential (current) use of insulin
== END 2024-07-03 17:19 | disposition home or self-care (01) ==
PROVIDERS: PCP Internal Medicine; Visit Provider Internal Medicine
DX: Z13.9 Encounter for screening, unspecified (principal)

== ENCOUNTER → 2024-07-03 16:47 | Outpatient (BNVA) | payer OTHER, SELFPAY | PROVIDERS: PCP Internal Medicine; Visit Provider Internal Medicine | DX: E11.9 Type 2 diabetes mellitus without complications (principal); E78.00 Pure hypercholesterolemia, unspecified; R79.89 Other specified abnormal findings of blood chemistry; E55.9 Vitamin D deficiency, unspecified; M17.0 Bilateral primary osteoarthritis of knee; M19.011 Primary osteoarthritis, right shoulder; G47.33 Obstructive sleep apnea (adult) (pediatric); E66.9 Obesity, unspecified; Z79.4 Long term (current) use of insulin | CPT/HCPCS: 83036; 96127 ==

== ENCOUNTER 2024-08-03 07:04 | Outpatient (REF) | payer OTHER, SELFPAY ==
--- OUTSIDE RECORDS SUMMARY | 2024-08-03 07:06 | XMS_ITS | Patient Health Record ---
Author Organization [facility] Address [address] [place] [address] Care Team Providers Care Numerical Control Lathe Operator Name Role Phone Chance GARCIA, Tyl[place] Primary Care Provider Tuan Major Unavailable [phone] ALLERGIES No Known Allergies RESULTS Component Value Reference Range Notes Pathology (Not yet reviewed by provider) Interpretation: Performing Lab:[facility], [address] [place] [phone] Notes/Report: Glucose, Whole Blood Reviewed date:06/29/2024 04:30:10 PM Interpretation: Performing Lab:[facility], [address] [place] [phone] Notes/Report: Glucose, Whole Blood 112 60-115 mg/dL METER # : [id number] REASON FOR REFERRAL No Information MEDICATIONS Medication [...] adenomatous polyp of colon (Z86.010) Active confirmed 496310114 Problem Encounter for screening for malignant neoplasm of colon (Z12.11) Active confirmed 454632769 Problem Preprocedural examination (Z01.818) Active confirmed 466451974 Problem Diverticulosis of large intestine without perforation or abscess without bleeding (K57.30) Active confirmed Diverticul ar disease of colon (707663556) VITAL SIGNS Blood pressure diastolic 00 mm Hg 03/20/2024 Height 68 in 03/20/2024 Blood pressure systolic 00 mm Hg 03/20/2024 Weight 267 lbs 03/20/2024 BMI 40.59 kg/m2 03/20/2024 Encounters Encounter Location Date Provider [place] [facility] [place] [address] [place] [phone] 06/29/2024 Tuan Hylton Colon cancer screeni Z12.11 ; Colon polyps K63.5 ; Diverticulosis of large intestine without perforation or abscess without bleeding K57.30 and Other hemorrhoids K64.8 [facility] [address] [facility] [place] [address] 03/20/2024 Tuan Hylton History of adenomato us polyp of colon Z86.010 ; Preprocedural examination Z01.818 and Encounter for screening for malignant neoplasm of colon Z12.11 ASSESSMENTS Encounter Date Diagnosis Assessment Notes Treatment Notes Treatment Clinical Notes 06/29/2024 Colon cancer screening (ICD-10 - Z12.11) 06/29/2024 Colon polyps (ICD-10 - K63.5) 03/20/2024 History of adenomatous polyp of colon (ICD-10 - Z86.010) Do not take Metformin the night before nor on the morning of the colonoscopy Take 1/2 your usual Insulin the night before the colonosocpy 03/20/2024 Preprocedural examination (ICD-10 - Z01.818) 06/29/2024 Diverticulosis of large intestine without perforation or abscess without bleeding (ICD-10 - K57.30) 03/20/2024 Encounter for screening for malignant neoplasm of colon (ICD-10 - Z12.11) 06/29/2024 Other hemorrhoids (ICD-10 - K64.8) PLAN OF TREATMENT Pending Test Test Name Order Date Pathology 06/29/2024 Future Test Test Name Order Date COLONOSCOPY 12/02/2016 COLONOSCOPY 03/20/2024 Insurance Providers Payer Name Payer Address Payer Phone Subscriber Number Group Number Insured Name Patient Relationship to Insured Coverage Start Date Coverage End Date [facility] [address] [place] [phone] [id number] 001 KIMBERLY EMERSON Self - patient is the insured MEDICAL (GENERAL) HISTORY Medical History History ICD Code Screening colonoscopy 2009 --tubular adenomas, divertciulosis, small internal hemorrhoids Denies [place],CVA,Lung disease,renal disease Spinal meningitis -2004 Hyperlipidemia IDDM Negative colonoscopy in 02/2017 Surgical History Surgery Date(Month/Year) Knee surgery-left Left cataract
--- OUTSIDE RECORDS SUMMARY | 2024-08-03 07:06 | XMS_ITS ---
Author Organization [facility] Address [address] [place] [address] Care Team Providers Care Medical Record Coder Name Role Phone Chance GARCIA, Tylor Primary Care Provider Tuan Major Unavailable [phone] ALLERGIES No Known Allergies REASON FOR VISIT [...] 03/20/2024 Encounters Encounter Location Date Provider Diagnosis [facility] [address] [place] [address] 03/20/2024 Tuan Hylton History of adenomato us [...]
[2024-08-03 10:13] LABS: MANUAL DIFF FLAG NO
[2024-08-03 10:16] LABS: Basophils Absolute Auto 0.1 X10*3/uL (0.0-0.2); Basophils Percent Auto 0.7 % (0-2); Eosinophils Absolute Auto 0.2 X10*3/uL (0.0-0.4); Eosinophils Percent Auto 2.3 % (0-4); Hematocrit 41.5 % (42.0-52.0); Hemoglobin 13.9 g/dl (14.0-18.0); Imm Gran Abs Auto 0.01 X10*3/uL (0.00-0.03); Imm Gran Pct Auto 0.1 % (0.0-0.4); Lymphocytes Absolute Auto 2.2 X10*3/uL (1.2-4.9); Mean Corpuscular HGB Conc 33.5 g/dl (31.0-36.0); Mean Corpuscular Hemoglobin 30.3 pg (27.0-33.0); Mean Corpuscular Volume 90.4 fL (80.0-98.0); Mean Platelet Volume 9.9 fL (9.4-12.4); Monocytes Absolute Auto 0.7 X10*3/uL (0.1-1.2); Monocytes Percent Auto 8.3 % (2-11); Neutrophils Absolute Auto 5.2 x10*3/uL (2.0-8.3); Neutrophils Percent Auto 62.6 % (45-73); Platelet Count 224 X10*3/uL (160-400); Red Blood Count 4.59 X10*6/uL (4.60-5.80); Red Cell Distribution Width 13.1 % (11.0-16.0); White Blood Count 8.3 X10*3/uL (4.8-10.8)
[2024-08-03 10:41] LABS: Estimated Average Glucose 166 mg/dL; Hemoglobin A1C 206.3456 umol/L; Hemoglobin A1c % 7.4 % (<6.0); Total Hemoglobin (HGBA1C) 3580.8038 umol/L
[2024-08-03 11:12] LABS: Appearance Urine Clear; Color Urine Yellow; Glucose Urine UA Negative (Negative); Leukocyte Esterase Urine Negative (Negative); Nitrite Urine Negative (Negative); Specific Gravity - Urine 1.025 (1.005-1.025); Urine Blood Negative (Negative); Urine Ketones Negative (Negative); Urine Protein Trace mg/dL (Neg-Trace)
[2024-08-03 11:38] LABS: Creatinine Urine 138.19 mg/dL; Microalbum/Creatinine Ratio Ur 23.1 ug/mg cr (<30)
[2024-08-03 11:58] LABS: Alanine Aminotransferase 22 U/L (0-40); Albumin Level 4.3 g/dL (3.5-5.0); Alkaline Phosphatase 120 U/L (39-117); Anion Gap 11 (12-20); Aspartate Amino Transferase 29 U/L (5-37); Bilirubin Total 0.8 mg/dL (0.0-1.0); Blood Urea Nitrogen 14 mg/dL (9-16); Calcium 9.9 mg/dL (8.4-10.2); Carbon Dioxide 33 mmol/L (22-29); Chloride 105 mmol/L (96-108); Cholesterol 150 mg/dL (<200); Estimated Glomerular Filt Rate > 60; Glucose Fasting 98 mg/dL (60-99); HDL Cholesterol 43 mg/dL (>40); LDL Cholesterol Calculated 79 mg/dL (<100); Potassium 4.8 mmol/L (3.3-5.1); Sodium 144 mmol/L (135-145); Total Protein 7.2 g/dL (6.5-8.0); Triglycerides 143 mg/dL (<150)
[2024-08-03 12:00] LABS: Vitamin D 25-OH Total 51.5 ng/mL (>30)
== END 2024-08-03 07:05 | disposition home or self-care (01) ==
LOC: HO.HMGCLDS 07:04
PROVIDERS: PCP Internal Medicine; Visit Provider Internal Medicine
DX: E11.9 Type 2 diabetes mellitus without complications (principal); E78.00 Pure hypercholesterolemia, unspecified; R30.0 Dysuria; D64.9 Anemia, unspecified; E55.9 Vitamin D deficiency, unspecified
CPT/HCPCS: 36415; 80053; 80061; 81003; 82043; 82306; 82570; 83036; 85025

== ENCOUNTER 2024-11-03 07:02 | Outpatient (REF) | payer OTHER, SELFPAY ==
--- OUTSIDE RECORDS SUMMARY | 2024-11-03 07:04 | XMS_ITS ---
Author Organization [facility] Address [address] [place] [address] Care Team Providers Care Electrical Assistant Name Role Phone Chance GARCIA, [place] Primary Care Provider Unava ilKarissa Bautista Unavailable [phone] REASON FOR VISIT BUY Formula 7 Encounters Encounter Location Date Provider Diagnosis [address] [address] 10/24/2024 Karissa Moreau Plan Of Treatment Next Appt Details Provider Name:Karissa jules, 01/09/2025 12:00:00 PM, [address] [place] [address], [phone], Progress Notes * Nadir GASPAR LDOB:1960 (63 yo M)Acc No.[id number]:10/24/2024 Patient:?Nadir GASPAR :1960???Age:63 Y???Sex:Male Address:[address] [place] [address], [address] * true * Date:? Generated for Farshadi liz/Breezy/eTransmitting on:?11/03/2024 07:04 AM EDT
--- OUTSIDE RECORDS SUMMARY | 2024-11-03 07:05 | XMS_ITS ---
Author Organization [facility] Address [address] [place] [address] Care Team Providers Care Pipe Joints Supervisor Name Role Phone Chance GARCIA, Tyl[place] Primary Care Provider Tuan Major Unavailable [phone] Allergies No Known Allergies REASON FOR VISIT Patient presents today for a COLON SCREENING Medications Medication SIG (Take, Route, Frequency, Duration) Notes [...] 1 tablet Orally Once a day Not-Taking Social History Tobacco Use: Social History Observation Description Date Details (start date - stop date) Former Smoker NA - NA Tobacco Use/Smoking Question Answer Notes Patient is [...] Never (0 point) Points 4 Interpretation Positive Section Notes: Stopped smoking 2015; occ. b eer Vital Signs Blood pressure systolic 00 mm Hg 03/20/20 24 Blood pressure diastolic 00 mm Hg 024 Height 68 in 03/20/2024 Weight 267 lbs 03/20/2024 BMI 40.59 kg/m2 03/20/2024 Encounters Encounter Location Date Provider Diagnosis [facility] [address] [place] [address] 03/20/2024 Tuan Hylton History of adenomato us polyp of colon Z86.010 ; Preprocedural examination Z01.818 and Encounter for screening for malignant neoplasm of colon Z12.11 Assessments Encounter Date Diagnosis (ICD Code) Assessment Notes Treatment Notes Treatment Clinical Notes Section Notes 03/20/2024 History of adenomatous polyp of colon (ICD-10 - Z86.010) Do not take Metformin the night before nor on the morning of the colonoscopy Take 1/2 your usual Insulin the night before the colonosocpy Overall, Nadir appears well. I did recommend a followup colonoscopy for further screening purposes given his last colonoscopy being over 5 years ago and his previous history of tubular adenomas. We did review the rationale for that regard to colon cancer prevention. Full consent is obtained for this, including risks of bleeding and perforation. The procedure will be done with monitored anesthesia care. He was given the below instructions regarding adjustment of his medications for the procedure. Nadir was comfortable with this plan. Thank you again for allowing me to participate in Nadir's care. I shall continue to keep you advised of his progress. 03/20/2024 Preprocedural examination (ICD-10 - Z01.818) Overall, Nadir appears well. I did recommend a followup colonoscopy for further screening purposes given his last colonoscopy being over 5 years ago and his previous history of tubular adenomas. We did review the rationale for that regard to colon cancer prevention. Full consent is obtained for this, including risks of bleeding and perforation. The procedure will be done with monitored anesthesia care. He was given the below instructions regarding adjustment of his medications for the procedure. Nadir was comfortable with this plan. Thank you again for allowing me to participate in Nadir's care. I shall continue to keep you advised of his progress. 03/20/2024 Encounter for screening for malignant neoplasm of colon (ICD-10 - Z12.11) Overall, Nadir appears well. I did recommend a followup colonoscopy for further screening purposes given his last colonoscopy being over 5 years ago and his previous history of tubular adenomas. We did review the rationale for that regard to colon cancer prevention. Full consent is obtained for this, including risks of bleeding and perforation. The procedure will be done with monitored anesthesia care. He was given the below instructions regarding adjustment of his medications for the procedure. Nadir was comfortable with this plan. Thank you again for allowing me to participate in Nadir's care. I shall continue to keep you advised of his progress. Plan Of Treatment Treatment Notes Assessment Notes History of adenomatous polyp of colon Do not take Metformin the night before nor on the morning of the colonoscopy Take 1/2 your usual Insulin the night before the colonosocpy Future Test Test Name Order Date COLONOSCOPY 03/20/2024 Next Appt Details Follow Up: prn, Reason: Progress Notes * JOSE EMERSONOB:[birth year] (63 yo M)Acc No.[id number]:03/20/2024 Progress Notes Patient:?NADIR EMERSON Provider:?Tuan Hylton MD :1960???Age:63 Y???Sex:Male Roberth e:03/20/2024 Address[address] Pcp:Tylor Fletcher MD Subjective: * Chief Complaints: * ???Patient presents today fo r a COLON SCREENING * HPI: ???incontinence:? I saw Nadir in the office today for evaluation of his personal history of tubular adenomas of the colon and need for colorectal cancer screening. ?I last saw Nadir in February of 2017, at which time he underwent a negative screening colonoscopy. He did have tubular adenomas removed on a previous colonoscopy. He presently feels well. He enjoys a good appetite, without any significant heartburn or dysphagia. His bowel movements have been regular and without any signs of bleeding. He denies abdominal pain, jaundice, nor unintentional weight loss. He denies any known family history of colon cancer in first-degree relatives. * ROS:?General/Constitutional:?Change in appetite?denies.?Chills?denies.?Fatigue?denies.?Ophthalmologic:?Comments?all negative.?ENT:?Comments?all negative.?Respiratory:?hemoptysis?denies.?Cough?denies.?Cardiovascular:?Chest pain?denies.?Orthopnea?denies.?Gastrointestinal:?Comments?See HPI for details.?Genitourinary:?Hematuria?denies.?Dysuria?denies.?Musculoskeletal:?Painful joints?denies.?Weakness?denies.?Skin:?Itching?denies.?Rash?denies.?Neurologic:?Headache?denies.?Seizures?denies.?Psychiatric:?Comments?all negative.? * Medical History:? * Surgical History:?Knee surge ry-left Left cataract * Hospitalization/Major Diagno stic Procedure:?No Hospitalization History. * Family History:?Father: dece ased, leukemia, diagnosed with Diabetes.?Mother: , melanoma in stomach.? There is no family history of of colorectal cancer. paternal uncle colon ca. * Social History:?Tobacco Use:?Tobacco Use/Smoking?Patient is a?former smoker,?How long has it been since you last smoked??1-5 years.?Drugs/Alcohol:?Alcohol Screen?Did you have a drink containing alcohol in the past year??Yes,?How often did you have a drink containing alcohol in the past year??4 or more times a week (4 points),?How many drinks did you have on a typical day when you were drinking in the past year??1 or 2 drinks (0 point),?How often did you have 6 or more drinks on one occasion in the past year??Never (0 point),?Points?4,?Interpretation?Positive.?Miscellaneous:?Marital status: , but lives with a girlfriend. 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 ???Stopped smoking 2015; occ. beer. * Medications:?TakingPravastat in Sodium 20 MG Tablet 1 tablet Orally Once a dayLantus 100 UNIT/ML Solution INJECT 20 UNITS SUBCUTANEOUSLY EVERY EVENING Subcutaneous metFORMIN HCl 1000 MG Tablet TAKE 1 TABLET BY MOUTH TWICE A DAY Oral Taking Pravastatin Sodium 20 MG Tablet 1 tablet Orally Once a dayTaking Lantus 100 UNIT/ML Solution INJECT 20 UNITS SUBCUTANEOUSLY EVERY EVENING Subcutaneous Taking metFORMIN HCl 1000 MG Tablet TAKE 1 TABLET BY MOUTH TWICE A DAY Oral Not-Taking/PRNAspirin Adult Low Dose 81 MG Tablet Delayed Release 1 tablet Orally Once a dayibuprofen 1 tab Oral as neededMedication List reviewed and reconciled with the patientNot- Taking/PRN Aspirin Adult Low Dose 81 MG Tablet Delayed Release 1 tablet Orally Once a dayNot-Taking/PRN ibuprofen 1 tab Oral as neededMedication List reviewed and reconciled with the patient * Allergies:?N.K.D.A.yes[Aller gies Verified] Objective: * Vitals:?Wt: 267 lbs, Ht: 68 in, BMI:40.59 Index, BP: 00/00 mm Hg. * Examination: ???General Examination: ?GENERAL APPEARANCE:?pleasant, well nourished, well developed, in no acute distress.?EYES:?sclera non-icteric.?ORAL CAVITY:?mucosa moist.?NECK/THYROID:?no cervical lymphadenopathy, neck supple.?SKIN:?nonjaundiced, no spider angiomata.?HEART:?S1, S2 normal.?LUNGS:?clear to auscultation bilaterally.?ABDOMEN:?normal bowel sounds, no guarding or rigidity, no guarding or rigidity, no masses palpable, soft, nontender, nondistended.?EXTREMITIES:?no edema.?NEUROLOGIC:?alert and oriented.? Assessment: * Assessment: 1.?Preprocedural examination - Z01.818 (Primary)?2.?History of adenomatous polyp of colon - Z86.010?3.?Encounter for screening for malignant neoplasm of colon - Z12.11? Overall, Nadir appears well . I did recommend a followup colonoscopy for further screening purposes given his last colonoscopy being over 5 years ago and his previous history of tubular adenomas. We did review the rationale for that regard to colon cancer prevention. Full consent is obtained for this, including risks of bleeding and perforation. The procedure will be done with monitored anesthesia care. He was given the below instructions regarding adjustment of his medications for the procedure. Nadir was comfortable with this plan. Thank you again for allowing me to participate in Nadir's care. I shall continue to keep you advised of his progress. Plan: * Treatment: Notes: Do not take Metformin the night before nor on the morning of the colonoscopy Take 1/2 your usual Insulin the night before the colonosocpy??2.?Encounter for screening for malignant neoplasm of colon?Procedure: COLONOSCOPY (Ordered for 03/20/2024)* with MACsched for 06/29/24 at 11:30 ammiralax * Procedure Codes:?3017F COLOR ECTAL CA SCREEN DOC [id number] TOBACCO NON-RUYAP3144 BP SCR NOT PRFRM REC REASON NOS * Preventive Medicine:? ??Counseling:?Care goal follow-up plan:?Above Normal BMI Follow-up?Giving encouragement to exercise,?BMI management provided?Yes.? * Follow Up:?prn * * Sign off status: Completed true * Provider:?Tuan Hylton MD Date:? 024 Generated for Hamida hill/Breezy/eTransmitting on:?11/03/2024 07:04 AM EDT History and Physical Notes * HPI (History of Present Illness) Category Sub-Category Detail Notes Category Not es incontinence I saw Nadir in the office today for evaluation of his personal history of tubular adenomas of the colon and need for colorectal cancer screening. I last saw Nadir in February of 2017, at which time he underwent a negative screening colonoscopy. He did have tubular adenomas removed on a previous colonoscopy. He presently feels well. He enjoys a good appetite, without any significant heartburn or dysphagia. His bowel movements have been regular and without any signs of bleeding. He denies abdominal pain, jaundice, nor unintentional weight loss. He denies any known family history of colon cancer in first-degree relatives. Examination Category Sub-Category Detail Notes Category Not es General Examination GENERAL APPEARANCE: pleasant , well [...]
--- OUTSIDE RECORDS SUMMARY | 2024-11-03 07:05 | XMS_ITS ---
Author Organization [facility] Address [address] [place] [address] Care Team Providers Care Truck Body Builder Apprentice Name Role Phone Chance GARCIA, [place] Primary Care Provider Unava Tuan Vega Unavailable [phone] REASON FOR VISIT screening,hx polyps Problems Problem Type SNOMED Code ICD Code Onset Dates Problem Status W/U Status Risk Notes Problem Diverticular disease of colon (938282254) Diverticulosis of large intestine without perforation or abscess without bleeding (K57.30) Active confirmed Encounters Encounter Location Date Provider Diagnosis [facility] [place] [address] [place], [place] [phone] 06/29/2024 Tuan Hylton Colon cancer scree rikki [...] * JOSE EM[birth year]OB:[birth year] (64 yo M)Acc No.[id number]:06/29/2024 COLON WITH MAC Patient:?JAREN EMERSONEL Provider:?Tuan Hylton MD :1960???Age:63 Y???Sex:Male Roberth e:06/29/2024 Address:[facility], [facility] [place] [place] Pcp:Tylor Fletcher MD Subjective: * Chief Complaints: * ???1. Screening,hx polyps. * Medical History:? Objective: * Vitals:? Assessment: * Assessment: 1.?Colon cancer screening - Z12.11 (Primary)???2.?Colon polyps - K63.5???3.?Diverticulosis of large intestine without perforation or abscess without bleeding - K57.30???4.?Other hemorrhoids - K64.8??? Plan: * Treatment: * Procedure Codes:?99710 LESIO N REMOVAL COLONOSCOPY, Modifiers: 33 * * The named appointment provid er may or may not be the originator of this progress note, and it is not deemed complete until electronically signed by the appointment provider. Sign off status: Pending * Provider:?Tuan Hylton MD Date:? 024 Generated for Hamida hill/Breezy/eTransmitting on:?11/03/2024 07:05 AM EDT
--- OUTSIDE RECORDS SUMMARY | 2024-11-03 07:05 | XMS_ITS ---
Author Organization [facility] Address [address] [place] [address] Care Team Providers Care Product Marketer Name Role Phone Chance GARCIA, [place] Primary Care Provider Unajulio ilKarissa Bautista Unavailable [phone] REASON FOR VISIT Purchased Formula 7 Encounters Encounter Location Date Provider Diagnosis [address] [address] 08/03/2024 Karissa Moreau Plan Of Treatment Next Appt Details Provider Name:Karissa jules, 01/09/2025 12:00:00 PM, [address] [place] [address], [phone], Progress Notes * Nadir GASPAR LDOB:1960 (63 yo M)Acc No.[id number]:08/03/2024 Patient:?Nadir GASPAR :1960???Age:63 Y???Sex:Male Address:[address] [place] [address], [address] * true * Date:? Generated for Farshadi liz/Breezy/eTransmitting on:?11/03/2024 07:04 AM EDT
--- OUTSIDE RECORDS SUMMARY | 2024-11-03 07:05 | XMS_ITS | Patient Health Record ---
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 Name Role Phone Chance GARCIA, Oracle Primary Care Provider Tuan Major Unavailable [phone] Allergies No Known Allergies Results Component Value Reference Range Notes Glucose, Whole Blood Reviewed date:06/29/2024 04:30:10 PM Interpretation: Performing Lab:[facility], [address] [place] [id number] Notes/Report: Glucose, Whole Blood 112 60-115 mg/dL METER # : [id number] Pathology (Not yet reviewed by provider) Interpretation: Performing Lab:[facility], [address] [place] [address] Notes/Report: ------ Name: HubertRuddy L Age/Sex: 63/M : 1960 Unit#: [id number] Attend Dr: Tuan Hylton MD Re06/29/24 Status : [facility] Location: [facility] Disch: ------ SPEC : [id number] RECD : 06/29/24 STATUS: JESSICA ANDERSON NUM: [id number] MARIA DE JESUS: 06/29/24-[address] [facility] [address]: Tuan Hylton MD ENTERED: 06/29/24- 31 SP TYPE: Surgical OTHR DR: Tyolr Fletcher MD ORDERED: HE Stain/3, Gross Micro L4 Diagnosis Colon, at 15 cm, nehemiah yp: Hyperplastic polyp. Clinical History Pre-Op Dx: Screening Post-Op Dx: Colon po lyp, diverticulosis and hemorrhoids Microscopic Description Microscopic sections reviewed. Material Received Polyp at 15 Gross Description Received in formalin labeled ?polyp at 15? is a 0.45 cm congested and hemorrhagic red-maroon papular tissue fragm ent, submitted in toto in a cassette labeled A. CEDS Copies To: Tylor Fletcher MD [facility] [address] [place] [address] Tuan Hylton MD [facility] [address] [place] [address] ------ Signed (signature on file) Gina Zhang 07/02/24 1424 ------ END OF REPORT Reason For Referral No Information Medications Medication SIG (Take, Route, Frequency, Duration) [...] 4 Interpretation Positive Section Notes: Stopped smoking 2016; 1 beer QD Stopped smoking 2016; occ. b eer Problems Problem Type SNOMED Code ICD Code Onset Dates Problem Status W/U Status Risk Notes Problem 054523265 Encounter for screening for malignant neoplasm of colon (Z12.11) Active confirmed Problem 185904674 History of adenomatous polyp of colon (Z86.010) Active confirmed Problem Diverticular disease of colon (013148336) Diverticulosis of large intestine without perforation or abscess without bleeding (K57.30) Active confirmed Problem 639060726 Preprocedural examination (Z01.818) Active confirmed Vital Signs Blood pressure diastolic 00 mm Hg 03/20/2024 Height 68 in 03/20/2024 Blood pressure systolic 00 mm Hg 03/20/2024 Weight 267 lbs 03/20/2024 BMI 40.59 kg/m2 03/20/2024 Encounters Encounter Location Date Provider Diagnosis [facility] [address] [place] [id number] 06/29/2024 Tuan Hylton Colon cancer screeni ng Z12.11 ; Colon polyps K63.5 ; Diverticulosis of large intestine without perforation or abscess without bleeding K57.30 and Other hemorrhoids K64.8 [facility] [address] [place] [address] 03/20/2024 Tuan Hylton History of adenomato us [...] Insulin the night before the colonosocpy Overall, Kimberly appears well. I did recommend a followup [...] adjustment of his medications for the procedure. Kimberly was comfortable with this plan. Thank you again for allowing me to participate in Kimberly's care. I shall continue to keep you advised of his progress. 03/20/2024 Preprocedural examination (ICD-10 - Z01.818) Overall, Kimberly appears well. I did recommend a followup [...] adjustment of his medications for the procedure. Kimberly was comfortable with this plan. Thank you again for allowing me to participate in Kimberly's care. I shall continue to keep you advised of his progress. 06/29/2024 Diverticulosis of large intestine without perforation or abscess without bleeding (ICD-10 - K57.30) 03/20/2024 Encounter for screening for malignant neoplasm of colon (ICD-10 - Z12.11) Overall, Kimberly appears well. I did recommend a followup [...] adjustment of his medications for the procedure. Kimberly was comfortable with this plan. Thank you again for allowing me to participate in Kimberly's care. I shall continue to keep you advised of his progress. 06/29/2024 Other hemorrhoids (ICD-10 - K64.8) Plan Of Treatment Pending Test Test Name Order Date Pathology 06/29/2024 Future Test Test Name Order Date COLONOSCOPY 12/02/2016 COLONOSCOPY 03/20/2024 Insurance Providers Payer Name Payer Address Payer Phone Subscriber Number Group Number Insured Name Patient Relationship to Insured Coverage Start Date Coverage End Date [facility] [address] [place] [phone] [id number] HUBERTKIMBERLY FELIX Self - patient is the insured Medical (General) History Medical History History ICD Code Screening colonoscopy 2009 --tubular adenomas, divertciulosis, small internal hemorrhoids Denies [place],CVA,Lung disease,renal disease Spinal meningitis -2004 Hyperlipidemia IDDM Negative colonoscopy in 02/2017 Surgical History Surgery Date(Month/Year) Knee surgery-left Left cataract
--- OUTSIDE RECORDS SUMMARY | 2024-11-03 07:05 | XMS_ITS | Patient Health Record ---
Author Organization [facility] Address [address] [place] [address] Care Team Providers Care Shirt Line Operator Name Role Phone Chance GARCIA, [place] Primary Care Provider Karissa Hays Unavailable [phone] Allergies No Known Allergies Results Component Value Reference Range Notes HEMOGLOBIN A1C (GLYCOHEMOGLO BIN) Reviewed date:08/03/2024 09:24:07 AM Interpretation: Performing Lab: Notes/Report: HEMOGLOBIN A1C % (HH) 7.0 Reason For Referral No Information Medications Medication SIG (Take, Route, Frequency, Duration) Notes Start Date End Date Status Ciclopirox Olamine 0.77 % 1 application Externally Twice a day to skin of feet including between the toes for 30 days Active Pravastatin Sodium 20 MG 1 tablet Orally Once a day Active Penicillin G Potassium Active metFORMIN HCl 1000 MG 1 tablet with a me al Orally Once a day Active Extra Depth Orthopedic Shoes (1 Pair) with Customized Heat Molded Multidensity Innersoles (3 Pair) as directed Dx: NIDDM/Polyneuropathy (E11.42), Hammertoe Foot Deformity (M20.41,M20.42), Preulcerative Skin Lesion(s) (L85.1 Active Social History Tobacco Use: Social History Observation Description Date Details (start date - stop date) Never Smoker NA - NA Tobacco use other than smoking: Question Answer Notes Are you an other tobacco user? No Tobacco Control (Standard) Question Answer Notes Tobacco use: Nonsmoker Additional Findings: Tobacco non-user Ex-cigaret te smoker AUDIT-C (Standard) Question Answer Notes Did you have a drink contain ing alcohol in the past year? Yes How often did you have six o r more drinks on one occasion in the past year? Never (0 point) How many drinks did you have on a typical day when you were drinking in the past year? 1 or 2 drinks (0 point) How often did you have a dri nk containing alcohol in the past year? Never (0 point) Points 0 Interpretation Negative Problems Problem Type SNOMED Code ICD Code Onset Dates Problem Status W/U Status Risk Notes Problem Acquired hammer toe of right foot (2308166125943803 ) Other hammer toe(s) (acquired), right foot (M20.41) Active confirmed Problem Acquired hammer toe of left foot (2917173483013979 ) Other hammer toe(s) (acquired), left foot (M20.42) Active confirmed Problem Polyneuropathy due to type 2 diabetes mellitus (942094604) Type 2 diabetes mellitus with diabetic polyneuropathy (E11.42) Active confirmed Vital Signs Blood pressure diastolic 80 mm Hg 10/24/2024 Height 5ft7in in 10/24/2024 Blood pressure systolic 125 mm Hg 10/24/2024 Weight 265 lbs 10/24/2024 BMI 41.5 kg/m2 10/24/2024 Encounters Encounter Location Date Provider Diagnosis [address] [address] 08/03/2024 Karissa Moreau Type 2 diabetes mellitus with diabetic polyneuropathy E11.42 ; Tinea unguium B35.1 ; Tinea pedis of both feet B35.3 ; Other hammer toe(s) (acquired), right foot M20.41 and Other hammer toe(s) (acquired), left foot M20.[address] [address] 10/24/2024 Karissa Moreau Type 2 diabetes mellitus with diabetic polyneuropathy E11.42 ; Tinea unguium B35.1 ; Tinea pedis of both feet B35.3 ; Other hammer toe(s) (acquired), right foot M20.41 and Other hammer toe(s) (acquired), left foot M20.[address] [address] 08/03/2024 Karissa Moreau [facility] [address] [place] [address] 10/24/2024 Karissa Moreau Assessments Encounter Date Diagnosis (ICD Code) Assessment Notes Treatment Notes Treatment Clinical Notes Section Notes 08/03/2024 Type 2 diabetes mellitus with diabetic polyneuropathy (ICD-10 - E11.42) 08/03/2024 Tinea unguium (ICD-10 - B35.1) 10/24/2024 Type 2 diabetes mellitus with diabetic polyneuropathy (ICD-10 - E11.42) 10/24/2024 Tinea unguium (ICD-10 - B35.1) 10/24/2024 Tinea pedis of both feet (ICD-10 - B35.3) 08/03/2024 Tinea pedis of both feet (ICD-10 - B35.3) 10/24/2024 Other hammer toe(s) (acquired), right foot (ICD-10 - M20.41) 08/03/2024 Other hammer toe(s) (acquired), right foot (ICD-10 - M20.41) Patient Educated with: DIABETIC FOOT CARE INSTRUCTIONS. pdf (DIABETIC FOOT CARE INSTRUCTIONS. pdf) 08/03/2024 Other hammer toe(s) (acquired), left foot (ICD-10 - M20.42) 10/24/2024 Other hammer toe(s) (acquired), left foot (ICD-10 - M20.42) Plan Of Treatment Next Appt Details Provider Name:Karissa jules, 01/09/2025 12:00:00 PM, [address] [place], [address], Insurance Providers Payer Name Payer Address Payer Phone Subscriber Number Group Number Insured Name Patient Relationship to Insured Coverage Start Date Coverage End Date [facility] [address] [place] [address] [id number] Nadir Gaspar Self - patient is the insured Medical (General) History Medical History History ICD Code type II diabetes Mumps Surgical History Surgery Date(Month/Year) knee surgery colonoscopy cataract surgery 2022
--- OUTSIDE RECORDS SUMMARY | 2024-11-03 07:05 | XMS_ITS ---
Author Organization [facility] Address [address] [place] [address] Care Team Providers Care Real Estate Assessor Name Role Phone Chance GARCIA, [place] Primary Care Provider Karissa Hays Unavailable [phone] Allergies No Known Allergies REASON FOR VISIT At Risk Footcare, Skin Problem, Toe Irritation Medications Medication SIG (Take, Route, Frequency, Duration) [...] Additional Findings: Tobacco non-user Ex-cigaret te smoker Vital Signs Blood pressure systolic 125 mm Hg 10/25/19 25 Blood pressure diastolic 80 mm Hg 025 Height 5ft7in in 10/24/2024 Weight 265 lbs 10/24/2024 BMI 41.5 kg/m2 10/24/2024 Encounters Encounter Location Date Provider Diagnosis [facility] [address] [address] 10/24/2024 Karissa Moreau Type 2 diabetes mellitus with diabetic polyneuropathy E11.42 ; Tinea unguium B35.1 ; Tinea pedis of both feet B35.3 ; Other hammer toe(s) (acquired), right foot M20.41 and Other hammer toe(s) (acquired), left foot M20.42 Assessments Encounter Date Diagnosis (ICD Code) Assessment Notes Treatment Notes Treatment Clinical Notes Section Notes 10/24/2024 Type 2 diabetes mellitus with diabetic polyneuropathy (ICD-10 - E11.42) 10/24/2024 Tinea unguium (ICD-10 - B35.1) 10/24/2024 Tinea pedis of both feet (ICD-10 - B35.3) 10/24/2024 Other hammer toe(s) (acquired), right foot (ICD-10 - M20.41) 10/24/2024 Other hammer toe(s) (acquired), left foot (ICD-10 - M20.42) Plan Of Treatment Medication Medication Name Sig Start Date Stop Date Notes Extra Depth Orthopedic Shoes (1 Pair) with Customized Heat Molded Multidensity Innersoles (3 Pair) as directed Dx: NIDDM/Polyneuropathy (E11.42), Hammertoe Foot Deformity (M20.41,M20.42), Preulcerative Skin Lesion(s) (L85.1 Next Appt Details Follow Up: 2 Months, Reason: Provider Name:Karissa Jules Gonzalez jules, 01/09/2025 12:00:00 PM, [address] [place] [address], [phone], Procedure Notes * Category Sub-Category Detail Notes Debride Nail 6-10 Nail debridement Due to the cl inical pathology outlined in the exam findings, performance of this nail treatment is medically necessary as its management by an unskilled/untrained nonprofessional would put this patients foot and overall health at risk. Therefore, debridement to affected nail(s), as described in exam (TA, T1, T2, T3, T4, T5, T6, T7, T8, T9, ), was performed exclusively by the physician of record to reduce/remove overall nail length, girth, thickness, subungual debris, and necrotic tissue, by manual and/or electrical means through the use of a nail nipper and/or dremel-type glass grinder, to a more viable healthy nail plate or bed tissue 6-10 nails in total. Silver nitrate was used for any petechial bleeding as necessary. Definitive antifungal treatment options, both pharmaceutical and surgical, have been reviewed and discussed with the patient. The patient solely prefers the use of intermittent/as needed professional debridement services for their nail condition and understands the need for additional periodic treatments to maintain effectiveness in symptomatic relief - 11689 Keratoma Treatment Parring or Cutting o f Benign Hyperkeratotic Lesion(s) (-56) 2-4 Lesions - Due to the at risk nature of the patients medical condition as documented in the exam findings, performance of this keratoderma treatment is medically necessary as its management by an unskilled/untrained nonprofessional would put this patients foot and overall health at risk. Therefore, the benign hyperkeratotic lesions, (2) in total, locations as stated and described in the exam ( Plantar Heel(s), B/L ), were pared, and/or cut utilizing a sterile 15 blade, tissue nippers, and/or power dremel instrumentation by the physician of record - 31311 Progress Notes * Nadir GASPAR LDOB:1960 (63 yo M)Acc No.[id number]:10/24/2024 Progress Note Patient:?Nadir GASPAR Provider:?Karissa Moreau DPM :1960???Age:63 Y???Sex:Male Roberth e:10/24/2024 Address:[address] [place] [address] Pcp:Tylor Fletcher MD Subjective: * Chief Complaints: * ???At Risk FootcareSkin Prob lemToe Irritation * HPI: ???At Risk footcare:?Pt States Last PCP Visit:?Date?07/12/2024 ???Skin problems:?Nature:?scaling , redness.?Location:?B/L .?Course:?improved.?Treatments:?Medication (Ciclopirox Olamine 0.77 Cream).?Toe pain:?Location:?B/L feet.?Duration:?several years.?Course:?worse.?Aggravated by:?shoes, any pressure.?Treatments:?change in shoes.? * ROS:?General/Constitutional:?Nausea?denies.?Vomiting?denies.?Hunger Thirst?denies.?Loss appetite?denies.?Chills?denies.?Fatigue?denies.?Fever?denies.?Night Sweats?denies.?Unexplained weight loss?denies.?Unexplained weight gain?denies.?HEENTM:?Dentures?denies.?Dizziness?denies.?Glasses/contacts?denies.?Retinopathy?den ies.?Blurred/double vision?denies.?TMJ?denies.?Discharge/drainage?denies.?Implants?denies.?Sore throat?denies.?Dental implants?denies.?Hard of hearing ?denies.?Difficulty chewing/swallowing/speaking?denies.?Nose bleeds?denies.?Sore mouth?denies.?Respiratory:?On O xygen?denies.?Pneumonia/pleurisy?denies.?Bronchitis?denies.?Emphysema?denies.?Co ughing?denies.?Cough blood?denies.?Shortness of breath?denies.?Wheezing?denies.?Cardiovascular:?Pacemaker?denies.?MVP?denies.?WPW?denies.?CHF?denies.?Heart attack?denies.?Septal defect?denies.?Rapid beat?denies.?Chest pain ?denies.?Atrial Fib.?denies.?Murmur/Palpitations?denies.?Gastrointestinal:?Hemorrhoids?denies.?Stomach/Abdominal pain?denies.?Dark blood stool?denies.?Irritable bowel ?denies.?Constipation?denies.?Diarrhea?denies.?Hematology:?Swelling?denies.?Clots?denies.?Varicose Veins?denies.?Bruising?denies.?Bleeding problem?denies.?Genitourinary:?Blood urine?denies.?Frequent/Painfu/urination/bladder control?denies.?Kidney stones?denies.?Infection (UTI)?denies.?Nephropathy?denies.?sex trans dis (STD)?denies.?Prostate?denies.?Musculoskeletal:?Hammertoes?denies.?Bunions?denies.?Back Pain?denies.?Muscle Cramps/ Resting?denies.?Muscle cramps / walking?denies.?Generalized aches and pains?denies.?Weakness?denies.?Integ.:?Goldman?denies.?Scars?denies.?Corns/calluses?denies.?Ingrown nails?denies.?Painful nails?denies.?Open Sores?denies.?Rashes?denies.?Neurologic:?Difficulty sleeping?denies.?Brain disorder?denies.?Numbness?denies.?Balance t rouble?denies.?Confusion?denies.?Fainting/blackouts?denies.?Tingling?denies.?Shahram mors?denies.? * Medical History:? * Surgical History:?knee surge ry colonoscopy cataract surgery 2022 * Hospitalization/Major Diagno stic Procedure:?Denies Past Hospitalization * Family History:?Mother: dece ased, Foot problems, diagnosed with Other malignant neoplasm of unspecified site, Family history of arthritis.?Father: , diagnosed with Other malignant neoplasm of unspecified site, Diabetic - NIDDM, Unspecified heart disease.? * Social History:?Tobacco Use:?Tobacco use other than smoking?Are you an other tobacco user??No ?Tobacco Control (Standard)?Tobacco use:?Nonsmoker ?Additional Findings: Tobacco non-user?Ex-cigarette smoker ???Miscellaneous:?Caffeine: yes, frequency:. ?Children: no. ?Exercise: no. ?Marital status: . ?Occupation: [employer]. * Medications:?TakingPenicilli n G Potassium metFORMIN HCl 1000 MG Tablet 1 tablet with a meal Orally Once a day Pravastatin Sodium 20 MG Tablet 1 tablet Orally Once a day Ciclopirox Olamine 0.77 % Cream 1 application Externally Twice a day to skin of feet including between the toes Extra Depth Orthopedic Shoes (1 Pair) with Customized Heat Molded Multidensity Innersoles (3 Pair) as directed Dx: NIDDM/Polyneuropathy (E11.42), Hammertoe Foot Deformity (M20.41,M20.42), Preulcerative Skin Lesion(s) (L85.1 Medication List reviewed and reconciled with the patientTaking Penicillin G Potassium Taking metFORMIN HCl 1000 MG Tablet 1 tablet with a meal Orally Once a day Taking Pravastatin Sodium 20 MG Tablet 1 tablet Orally Once a day Taking Ciclopirox Olamine 0.77 % Cream 1 application Externally Twice a day to skin of feet including between the toes Taking Extra Depth Orthopedic Shoes (1 Pair) with Customized Heat Molded Multidensity Innersoles (3 Pair) as directed Dx: NIDDM/Polyneuropathy (E11.42), Hammertoe Foot Deformity (M20.41,M20.42), Preulcerative Skin Lesion(s) (L85.1 Medication List reviewed and reconciled with the patient * Allergies:?N.K.D.A.yes[Aller gies Verified] Objective: * Vitals:?Ht: 5ft7in, Wt:265, BMI:41.5, Shoe size: 11 ex wide, BP:125/80mm Hg, BS: 122, Ht-cm: 170.18 cm, Wt-k.2 kg. * ???Past Orders: ???Lab:HEMOGLOBIN A1C (GLYCO HEMOGLOBIN) (Order Date - 05/25/2024) (Collection Date & Time - 05/25/2024 09:22 AM) ? Value Reference Range ?HEMOGLOBIN A1C % (HH) 7.0 * Examination: ???Ophthalmology Referral: ?DIABETES EYE EXAM?Procedure Performed:?Yes ?Date of Exam Performed?11/23/2023 ?Findings of Diabetic Eye Exam:?no retinopathy?Neurological: ?SENSORY:?(DM/Neuro) Neurological exam demonstrates reduced sharp/dull pin prick discrimination reduced light touch sensation reduced vibration sensation reduced proprioception sensation in a stocking fashion 5.07 monofilament test performed at plantar aspects of 5 varied sites per foot shows sensation plantar aspects absent at Forefoot B/L.?Nails: ?NAILS are:?Elongated, overgrown, dystrophic, lytic, greater than 3mm thick, discolored and friable with crumbly malodorous subungual debris, TA, T1, T2, T3, T4, T5, T6, T7, T8, T9.?Dermatologic: ?SKIN FINDINGS:?Skin shows?approximately 75 percent LESS, sign(s) of, erythema, scaling, in a moccasin fashion, no fissure(s) present, B/L, Skin exam reveals Keratotic lesion(s) located at , Plantar Heel(s), B/L.?Vascular: ?DP PULSES (B):?3/4, B/L.?PT PULSES (B):?3/4, B/L.?CAPILLARY FILL TIME:?immediate, all digits, B/L.?TROPHIC CONDITION-TEXTURE/ELASTICITY/TURGOR/HAIR GROWTH (B):?normal, B/L.?TEMPERTURE GRADIENT (C):?normal, warm to cool, proximal to distal, B/L, B/L.?PIGMENTATION:?normal, B/L.?Orthopedic: ?MUSCLE STRENGTH:?5/5 all groups in a symmetrical fashion, B/L.?DIGITAL DEFORMITIES:?Digital contracture, PIPJ, 2-5 B/L, incompl-reducible to push-up test, no over, nor underlapping,?there is?evidence of shoe producing skin irritation.?FOOTWEAR EVALUATION:?worn, non-supportive, shoe gear properties exacerbate patient's foot/toe deformity.?General Examination: ?GENERAL APPEARANCE:?Reveals a pleasant, alert, well nourished, well- developed, well hydrated individual, who demonstrates proper attention to hygiene/body habitus, and is in no acute distress, Pt serves as own historian for office visit today.?ORIENTED:?person, place, and time.?FOOT EXAM:?Lower Extremity Neurological Exam performed:?Yes Date ?Visual exam of foot performed:?Yes ?Date?10/24/2024 ?Footwear Evaluation?Footwear Evaluation performed:?Yes??? Assessment: * Assessment: 1.?Type 2 diabetes mellitus with diabetic polyneuropathy - E11.42 (Primary)???2.?Tinea unguium - B35.1???3.?Tinea pedis of both feet - B35.3???Specify :Acute problem, Uncomplicated (3) Improved???4.?Other hammer toe(s) (acquired), right foot - M20.41???Specify :Chronic problem, Worse (4),Rx Management (4)???5.?Other hammer toe(s) (acquired), left foot - M20.42???Specify :Chronic problem, Worse (4),Rx Management (4)??? Plan: * Treatment: * Procedures:?Debride Nail 6-10:?Nail debridement?Due to the clinical pathology outlined in the exam findings, performance of this nail treatment is medically necessary as its management by an unskilled/untrained nonprofessional would put this patients foot and overall health at risk. Therefore, debridement to affected nail(s), as described in exam (TA, T1, T2, T3, T4, T5, T6, T7, T8, T9, ), was performed exclusively by the physician of record to reduce/remove overall nail length, girth, thickness, subungual debris, and necrotic tissue, by manual and/or electrical means through the use of a nail nipper and/or dremel-type glass grinder, to a more viable healthy nail plate or bed tissue 6- 10 nails in total. Silver nitrate was used for any petechial bleeding as necessary. Definitive antifungal treatment options, both pharmaceutical and surgical, have been reviewed and discussed with the patient. The patient solely prefers the use of intermittent/as needed professional debridement services for their nail condition and understands the need for additional periodic treatments to maintain effectiveness in symptomatic relief - 54628.?Keratoma Treatment:?Parring or Cutting of Benign Hyperkeratotic Lesion(s)?(-56) 2-4 Lesions - Due to the at risk nature of the patients medical condition as documented in the exam findings, performance of this keratoderma treatment is medically necessary as its management by an unskilled/untrained nonprofessional would put this patients foot and overall health at risk. Therefore, the benign hyperkeratotic lesions, (2) in total, locations as stated and described in the exam (??Plantar Heel(s),?B/L?), were pared, and/or cut utilizing a sterile 15 blade, tissue nippers, and/or power dremel instrumentation by the physician of record - 59123.? * Procedure Codes:?79768 DEBRI DE NAIL, 6 OR MORE, Modifiers: XS 50047 TRIM SKIN LESIONS, 2 TO 4, Modifiers: XS * Preventive Medicine:? ??Screening/Special Tests:?Fall Risk?Screening:?No falls in the past year ?FALLS: Screening for Future Fall Risk?Have you had any falls with injury in the past year??No * Follow Up:?2 Months * Images: * Sign off status: Completed true * Provider:?Karissa Moreau DPM Date:?08/2024 Generated for Hamida hill/Breezy/eTfranciscosmitting on:?11/03/2024 07:05 AM EDT History and Physical Notes * HPI (History of Present Illness) Category Sub-Category Detail Notes Category Not es Toe pain Location: B/L feet Duration: several years Course: worse Aggravated by: shoes, any pressure Treatments: change in shoes Skin problems Nature: scaling , redness Location: B/L Course: improved Treatments: Medication (Ciclopir ox Olamine 0.77 Cream) At Risk footcare Pt States Last PCP Visit: Date: 4 Examination Category Sub-Category Detail Notes Category Not es Neurological SENSORY: (DM/Neuro) Neuro logical exam demonstrates reduced sharp/dull pin prick discrimination reduced light touch sensation reduced vibration sensation reduced proprioception sensation in a stocking fashion 5.07 monofilament test performed at plantar aspects of 5 varied sites per foot shows sensation plantar aspects absent at Forefoot B/L Dermatologic SKIN FINDINGS: Skin shows appro ximately 75 percent LESS, sign(s) of, erythema, scaling, in a moccasin fashion, no fissure(s) present, B/L, Skin exam reveals Keratotic lesion(s) located at , Plantar Heel(s), B/L Orthopedic FOOTWEAR EVALUATION: worn, non-s upportive, shoe gear properties exacerbate patient's foot/toe deformity DIGITAL DEFORMITIES: Digital contracture , PIPJ, 2-5 B/L, incompl-reducible to push-up test, no over, nor underlapping, there is evidence of shoe producing skin irritation MUSCLE STRENGTH: 5/5 all groups in a symmetrical fashion, B/L General Examination GENERAL APPEARANCE: Reveals a pleasant, alert, well nourished, well-developed, well hydrated individual, who demonstrates proper attention to hygiene/body habitus, and is in no acute distress, Pt serves as own historian for office visit today FOOT EXAM: Lower Extremity Neurological Exa m performed:: Yes Date Visual exam of foot performed:: Yes Date: 10/24/2024 ORIENTED: person, place, and t yonas Footwear Evaluation Footwear Evaluation performe d:: Yes Ophthalmology Referral DIABETES EYE EXAM Procedure Perform ed:: Yes ?Date of Exam Performed: 11/23/2023 Findings of Diabetic Eye Exam:: no retin opathy Vascular DP PULSES (B): 3/4, B/L PT PULSES (B): 3/4, B/L CAPILLARY FILL TIME: immediate, all digi ts, B/L TEMPERTURE GRADIENT (C): normal, warm to cool, proximal to distal, B/L, B/L TROPHIC CONDITION-TEXTURE/ELASTICITY/TURGOR/HAIR GROWTH (B): normal, B/L PIGMENTATION: normal, B/L Nails NAILS are: Elongated, overg rown, dystrophic, lytic, greater than 3mm thick, discolored and friable with crumbly malodorous subungual debris, TA, T1, T2, T3, T4, T5, T6, T7, T8, T9
[2024-11-03 11:19] LABS: MANUAL DIFF FLAG NO
[2024-11-03 11:21] LABS: Basophils Absolute Auto 0.1 X10*3/uL (0.0-0.2); Basophils Percent Auto 0.6 % (0-2); Eosinophils Absolute Auto 0.2 X10*3/uL (0.0-0.4); Eosinophils Percent Auto 2.7 % (0-4); Hematocrit 41.6 % (42.0-52.0); Imm Gran Abs Auto 0.02 X10*3/uL (0.00-0.03); Imm Gran Pct Auto 0.2 % (0.0-0.4); Lymphocytes Absolute Auto 2.2 X10*3/uL (1.2-4.9); Lymphocytes Percent Auto 26.7 % (20-40); Mean Corpuscular HGB Conc 33.7 g/dl (31.0-36.0); Mean Corpuscular Hemoglobin 30.1 pg (27.0-33.0); Mean Corpuscular Volume 89.5 fL (80.0-98.0); Monocytes Absolute Auto 0.7 X10*3/uL (0.1-1.2); Neutrophils Absolute Auto 5.1 x10*3/uL (2.0-8.3); Neutrophils Percent Auto 61.8 % (45-73); Platelet Count 216 X10*3/uL (160-400); Red Blood Count 4.65 X10*6/uL (4.60-5.80); Red Cell Distribution Width 12.6 % (11.0-16.0); White Blood Count 8.3 X10*3/uL (4.8-10.8)
[2024-11-03 11:26] LABS: Appearance Urine Clear; Color Urine Yellow; Glucose Urine UA Negative (Negative); Leukocyte Esterase Urine Negative (Negative); Nitrite Urine Negative (Negative); Specific Gravity - Urine 1.015 (1.005-1.025); Urine Blood Negative (Negative); Urine Ketones Negative (Negative); Urine Protein Negative (Neg-Trace)
[2024-11-03 11:48] LABS: Alanine Aminotransferase 21 U/L (0-40); Albumin Level 4.3 g/dL (3.5-5.0); Alkaline Phosphatase 118 U/L (39-117); Anion Gap 11 (12-20); Aspartate Amino Transferase 31 U/L (5-37); Bilirubin Total 0.8 mg/dL (0.0-1.0); Blood Urea Nitrogen 13 mg/dL (9-16); Calcium 9.6 mg/dL (8.4-10.2); Carbon Dioxide 28 mmol/L (22-29); Chloride 105 mmol/L (96-108); Cholesterol 151 mg/dL (<200); Estimated Glomerular Filt Rate > 60; Glucose Fasting 125 mg/dL (60-99); HDL Cholesterol 43 mg/dL (>40); LDL Cholesterol Calculated 82 mg/dL (<100); Potassium 4.2 mmol/L (3.3-5.1); Sodium 140 mmol/L (135-145); Triglycerides 132 mg/dL (<150)
[2024-11-03 11:51] LABS: Estimated Average Glucose 166 mg/dL; Hemoglobin A1C 215.7854 umol/L; Hemoglobin A1c % 7.4 % (<6.0); Total Hemoglobin (HGBA1C) 3732.4182 umol/L
[2024-11-03 11:54] LABS: Creatinine Urine 91.53 mg/dL; Microalbum/Creatinine Ratio Ur 30.5 ug/mg cr (<30)
[2024-11-03 12:05] LABS: TSH reflex Free T4 1.81 uIU/mL (0.32-4.0); Vitamin D 25-OH Total 58.5 ng/mL (>30)
== END 2024-11-03 07:03 | disposition home or self-care (01) ==
LOC: HO.HMGCLDS 07:02
PROVIDERS: PCP Internal Medicine; Visit Provider Internal Medicine
DX: E55.9 Vitamin D deficiency, unspecified (principal); E11.9 Type 2 diabetes mellitus without complications; D64.9 Anemia, unspecified; E78.00 Pure hypercholesterolemia, unspecified; R30.0 Dysuria
CPT/HCPCS: 36415; 80053; 80061; 81003; 82043; 82306; 82570; 83036; 84443; 85025

== ENCOUNTER 2024-11-07 08:48 | Outpatient (AMB) | payer OTHER, SELFPAY ==
[2024-11-07 09:05] VITALS: BP 130/82; PULSE 74; O2SAT 9; BMI 41.1
--- NOTE | 2024-11-07 09:05 | MHC.PC.OV ---
Vital Signs 11/07/24 09:05 Height 5 ft 8 in Weight 270 lb 6 oz BMI 41.1 BP 130/82 Blood Pressure Location Lt brachial Position Sitting Pulse 74 Pulse Source Pulse Oximeter Pulse Oximetry (%) 9 L Oxygen Delivery Method Room Air Intake Visit Reasons: Annual Exam Violin Mechanic Required: No Accompanied by: Self / Same As Patient Allergies No Known Allergies [No Known Allergies*] Allergy (Verified 11/07/24 09:42) Medication List - Last Reconciled 11/07/24 by Tylor Fletcher MD blood sugar diagnostic (FreeStyle Lite Strips) USE TO TEST ONCE DAILY blood-glucose meter (FreeStyle Lite Meter kit) Test Daily cholecalciferol (vitamin D3) 50 mcg PO DAILY 90 days insulin glargine (Lantus U-100 Insulin) 20 units (0.2 mL) subcut QPM 90 days insulin syringe-needle U-100 Use Daily insulin syringe-needle U-100 (BD Insulin Syringe Ultra-Fine) As directed lancets (FreeStyle Lancets) USE TO TEST ONCE DAILY metformin 1,000 mg PO BID 90 days pravastatin 20 mg PO DAILY 90 days Tobacco use date assessed: 11/07/24 Fall risk assessment: No Falls in past year Last assessed Fall Risk: 11/07/24 Dental Screening Dental Screen Date: 11/07/24 Did you have a dental visit in the last 12 months?: No Did you have a dental problem in the last 6 months where you did not have access to dental care?: No Was dental information given to patient?: No HPI Annual Exam HPI Details Patient comes in today for his annual physical examination States that he feels okay He denies any headaches or dizziness Denies any chest pains, no SOB No nausea/vomiting, no abdominal pain No change in bowel habits noted He denies any acute urinary symptoms He continues to use his CPAP device at night regularly when he is sleeping - states that the CPAP therapy has helped him a lot He had his follow up labs done a few days ago - to discuss his results He is updated with his yearly foot and eye exams He is up-to-date with his cancer screening - had his screening colonoscopy last done with Dr. Hylton on 06/29/2024 and was advised that his repeat colonoscopy will be due in 5 years (2028) [facility] Medical History Sleep apnea Meningitis spinal Vitamin D deficiency Elevated LFTs Primary osteoarthritis, right shoulder Primary osteoarthritis of both knees Pure hypercholesterolemia Diabetes mellitus Surgical History (Updated 11/07/24 @ 09:52 by Tylor Fletcher MD) Hx of cataract extraction H/O right knee surgery History of colonoscopy Family History Father Diabetes Gout CVD (cardiovascular disease) Cancer Mother Cancer Other Mental health disorder Social History Housing: House Alcohol intake: current Alcohol intake frequency: a few times a month Alcohol type: beer Patient Tobacco Use Status: Former Tobacco user Tobacco use type: Cigarette e-Cigarette/Vaping Use: Never Used Second Hand Smoke Exposure: No service: No Current occupational status: employed 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 1. Little interest or pleasure in doing things: not at all 2. Feeling down, depressed, or hopeless: not at all 3. Trouble falling or staying asleep, or sleeping too much: not at all 4. Feeling tired or having little energy: not at all 5. Poor appetite or overeating: not at all 6. Feeling bad about yourself - or that you are a failure or have let yourself or your family down: not at all 7. Trouble concentrating on things, such as reading the newspaper or watching television: not at all 8. Moving or speaking so slowly that other people could have noticed. Or the opposite - being so fidgety or restless that you have been moving around a lot more than usual: not at all 9. Thoughts that you would be better off or of hurting yourself in some way: not at all Total score: 0 Depression Screening Interpretation: Negative Depression Screening Done: Yes 47126 - PHQ-9 Billing: Yes Source: Developed by Drs. Tuan Pearce, Naty Mcleod, Babak Duff and colleagues, with an educational anupama from [employer]. Thrive Questionnaire Date Thrive assessed: 11/07/24 I am a: Patient What is your living situation today?: I have a steady place to live Within the past 12 months, did the food you bought not last and you didn't have the money to get more?: Never true Within the past 12 months, did you worry whether your food would run out before you got money to buy more?: Never true Do you have trouble paying for medicines?: No Do you have trouble getting transportation to medical appointments?: No Do you have trouble paying your heating and electricity bill?: No Do you have trouble taking care of your child, family member or friend?: No Do you have trouble with day-to-day activities such as bathing, preparing meals, shopping, managing finances, etc.?: No Are you currently unemployed and looking for a job?: No Are you interested in more education?: No Please select the resources that you would like help with: None Currently or been in a relationship where the following occur: No concerns reported THRIVE Score: 0 AUDIT C Alcohol Use Questionnaire (AUDIT-C) 1. How often do you have a drink containing alcohol?: Monthly or less 2. How many drinks containing alcohol do you have on a typical day when you are drinking?: 1 or 2 3. How often do you have six or more drinks on one occasion?: Never Total Score: 1 Score Reviewed/Action Taken: Yes CARTER-7 AMB Questionnaire CARTER-7 Date CARTER - 7 assessed: 11/07/24 Feeling nervous, anxious, or on edge: 0 = Not at all Not being able to stop or control worryin = Not at all Worrying too much about different things: 0 = Not at all Trouble relaxin = Not at all Being so restless that it is hard to sit still: 0 = Not at all Becoming easily annoyed or irritable: 0 = Not at all Feeling afraid as if something awful might happen: 0 = Not at all Total CATRER-7 score (0-4 normal; 5-9 mild; 10-14 moderate; 15-21 severe): 0 Source: Developed by Drs. Tuan Pearce, Naty Mcleod, Babak Duff and colleagues, with an educational anupama from [employer]. Review of Systems Const Denies chills, Denies fatigue, Denies fever(s), Denies headache(s), Denies malaise and Denies weakness Eyes Denies blurry vision, Denies change in vision, Denies irritation and Denies itchy eyes ENT Denies dysphagia, Denies dizziness, Denies otalgia, Denies headache(s), Denies nasal congestion, Denies neck pain, Denies odynophagia and Denies sore throat Card Denies chest pain, Denies rapid heart rate, Denies irregular heart rhythm, Denies palpitations and Denies dyspnea Resp Denies chest congestion, Denies cough, Denies dyspnea and Denies wheezing GI Denies abdominal pain, Denies bloating, Denies constipation, Denies dysphagia, Denies heartburn, Denies diarrhea, Denies nausea, Denies odynophagia and Denies vomiting Denies hematuria, Denies difficulty urinating, Denies dysuria, Denies urinary frequency and Denies urinary urgency Musc Denies back pain, Reports arthralgias (on and off in both knees and in the right shoulder - mostly controlled), Denies joint swelling, Denies muscle weakness and Denies neck pain Skin/Breast Denies change in pigmentation, Denies lesions, Denies rash and Denies unusual bruising Neuro Denies dizziness, Denies headache(s), Denies paresthesias and Denies weakness Endo Denies fatigue and Denies palpitations Aller/Immun Denies itchy eyes and Denies wheezing Physical exam (Primary Care) Vital Signs: Last Vital Signs Pulse 74 11/07/24 09:05 BP 130/82 11/07/24 09:05 Pulse Ox 9 L 11/07/24 09:05 Oxygen Delivery Method Room Air 11/07/24 09:05 BMI result Body Mass Index 41.1 Tobacco/Smoking Status: Tobacco use Status Tobacco use date assessed 11/07/24 11/07/24 09:06 Patient Tobacco Use Status Former Tobacco user 11/07/24 09:06 Tobacco use type Cigarette 11/07/24 09:06 e-Cigarette/Vaping Use Never Used 11/07/24 09:06 PHQ-9: PHQ-9 Score PHQ-9: Total score 0 11/07/24 09:06 Depression Screening Interpretation: Negative Thrive Assessment: Date of Thrive Assessment Date Thrive assessed 11/07/24 11/07/24 09:06 Currently or been in a relationship where the following occur: No concerns reported Const General: no acute distress, alert and awake Orientation/consciousness: patient oriented x3 HENMT Head: Yes normocephalic and Yes atraumatic Ears: external ears normal, TM's normal bilaterally and EAC's normal General nose exam: No nasal discharge present Face and sinus: Yes normal facial exam and Yes sinuses nontender Teeth and gingiva: dentition normal Throat: Yes posterior oropharynx normal and Yes tonsils normal (no TP congestion) Eyes Eyelids: Yes eyelids normal Conjunctivae: conjunctivae normal Pupils: Equal, round and reactive pupils present EOM: EOMs intact bilaterally Neck Neck: Yes no lymphadenopathy and Yes supple Thyroid: Thyroid normal Resp Auscultation: clear to auscultation bilaterally, no rales and no wheezes Cardio Rate: regular rate Rhythm: regular rhythm Heart sounds: no murmurs GI Palpation (GI): Soft to palpation, nontender and No hepatosplenomegaly present Auscultation: normal bowel sounds General: Yes no CVA tenderness Back/Spine/Pelvis Back: no CVA tenderness Thoracic/Lumbar Spine: thoracic and lumbar spine normal to inspection Skin Lesions: no lesions Rashes: no rashes Neuro General: patient oriented x3, moves all extremities, no focal motor deficits and CN's II-XI intact bilaterally Cranial nerves: Yes Equal, round and reactive pupils present Cognition (Neuro): normal cognition Gait exam (Neuro): Normal gait present Extrem General: Yes no clubbing, cyanosis or edema Right lower extremity: knee Details: tenderness (mild); no swelling Left lower extremity: knee Details: tenderness (mild); no swelling Results Reviewed Results Reviewed: Laboratory Tests 07/03/24 11/03/24 17:05 07:12 WBC 8.3 Hgb 14.0 Hct 41.6 L Plt Count 216 Sodium 140 Potassium 4.2 Creatinine 0.77 Estimated GFR > 60 Fasting Glucose 125 H Hgb A1c (Clinic) 7.5 H Hemoglobin A1c % 7.4 H Calcium 9.6 AST 31 ALT 21 Triglycerides 132 Cholesterol 151 LDL Cholesterol, Calc 82 HDL Cholesterol 43 25-OH Vitamin D Total 58.5 TSH 1.81 Ur Specific [place] 1.015 Urine Protein Negative Urine Glucose (UA) Negative Urine Blood Negative Urine Nitrite Negative Ur Leukocyte Esterase Negative Microalb/Creat Ratio 30.5 H Coding Level of Care Code Est Pt Prev Care >65y(51070) Diagnoses Annual physical exam Z00.00 Type 2 diabetes mellitus without complication, with long-term current use of insulin E11.9; Z79.4 Diabetes mellitus type: type 2 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 mellitus 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 insulin use: with skilled nursing use Diabetes mellitus complication status: without complication Pure hypercholesterolemia E78.00 Elevated LFTs R79.89 Vitamin D deficiency E55.9 Primary osteoarthritis of both knees M17.0 Primary osteoarthritis, right shoulder M19.011 Obstructive sleep apnea G47.33 Obesity (BMI 30-39.9) E66.9 Additional Codes PHQ-9 - 10516 - PHQ-9 Billing: Yes ([id number]) Assessment & Plan Assessment & Plan (1) Annual physical exam: Code(s): Z00.00 - Encounter for general adult medical examination without abnormal findings Category: Medical Plan: Results of his labs done a few days ago reviewed and discussed with patient He is currently up-to-date with his cancer screening - he had his most recent screening colonoscopy done with Dr. Hylton on 06/29/2024 and was advised that he will need a repeat colonoscopy again in 5 years (2028) (2) Diabetes mellitus: Code(s): E11.9 - Type 2 diabetes mellitus without complications Category: Medical Qualifiers: Diabetes mellitus type: type 2 Diabetes mellitus skilled nursing insulin use: with skilled nursing use Diabetes mellitus complication status: without complication Qualified Code(s): E11.9 - Type 2 diabetes mellitus without complications; Z79.4 - jail (current) use of insulin Plan: His HgbA1c was at 7.4% on his labs done a few days ago (in-office HgbA1c was previously at 7.5% a few months ago) - goal is <7.0% Reinforced diabetic diet Continue Metformin 1000 mg BID and Lantus 20 units Q HS for now but advised that we may need to start him additionally on some other Rx if he cannot get his HgbA1c to goal over the next few months Follow-up with endocrinology as scheduled (3) Pure hypercholesterolemia: Code(s): E78.00 - Pure hypercholesterolemia, unspecified Category: Medical Plan: Patient is advised that his cholesterol numbers are at or near goal on his recent labs Reinforced low-cholesterol diet Continue Pravastatin 20 mg QD Will recheck his labs and fasting lipids in 4 months for follow up (4) Elevated LFTs: Code(s): R79.89 - Other specified abnormal findings of blood chemistry Category: Medical Plan: His LFTs have remained normal on his recent labs - they were most likely related to his weight (hepatosteatosis) when they were elevated previously Will continue to monitor his LFTs regularly (5) Vitamin D deficiency: Code(s): E55.9 - Vitamin D deficiency, unspecified Category: Medical Plan: Continue Vitamin D3 2000 units QD (6) Primary osteoarthritis of both knees: Code(s): M17.0 - Bilateral primary osteoarthritis of knee Category: Medical Plan: Patient states that his knee pains have remained mostly manageable Have advised him again that losing some weight can help ease up a lot of his knee pain/symptoms (7) Primary osteoarthritis, right shoulder: Code(s): M19.011 - Primary osteoarthritis, right shoulder Category: Medical Plan: His shoulder symptoms have also remained adequately controlled on his current meds He is again encouraged to continue with regular shoulder ROM exercises to help manage his joint pains and stiffness (8) Obstructive sleep apnea: Comment: On APAP [id number], HST Results- AHI 10/hr supine 55/hr O2 dequan 87% Code(s): G47.33 - Obstructive sleep apnea (adult) (pediatric) Category: Medical Plan: Patient continues to use his autoPAP regularly when he is sleeping at night and feels that it has and is still helping him a lot Follow up with Sleep Medicine as scheduled (9) Obesity (BMI 30-39.9): Code(s): E66.9 - Obesity, unspecified Category: Medical Plan: Reinforced diet/exercise as tolerated/lose weight Plan Follow up in 4 months Orders: Orders Complete Blood Count Auto Diff 4 Months D64.9 - Anemia, unspecified Comprehensive [place]. Panel Fast 4 Months E78.00 - Pure hypercholesterolemia, unspecified Hemoglobin A1c 4 Months E11.9 - Type 2 diabetes mellitus without complications, Z00.00 - Encounter for general adult medical examination without abnormal findings TSH reflex Free T4 4 Months E78.00 - Pure hypercholesterolemia, unspecified, Z00.00 - Encounter for general adult medical examination without abnormal findings UA CC w/rflx Micro + Cult 4 Months R30.0 - Dysuria, Z00.00 - Encounter for general adult medical examination without abnormal findings Vitamin D 25-OH Total 4 Months E55.9 - Vitamin D deficiency, unspecified, Z00.00 - Encounter for general adult medical examination without abnormal findings Vitamin B12 and Folate 4 Months E53.8 - Deficiency of other specified B group vitamins, Z00.00 - Encounter for general adult medical examination without abnormal findings Lipid Panel 4 Months E78.00 - Pure hypercholesterolemia, unspecified Microalbumin, Random (w Creat) 4 Months E11.9 - Type 2 diabetes mellitus without complications, Z00.00 - Encounter for general adult medical examination without abnormal findings Prostate Specific Antigen 4 Months N40.0 - Benign prostatic hyperplasia without lower urinary tract symptoms, Z00.00 - Encounter for general adult medical examination without abnormal findings
--- OUTSIDE RECORDS SUMMARY | 2024-11-07 09:15 | XMS_ITS ---
Author Organization [facility] Address [address] [place] [address] Care Team Providers Care Spinning Frame Changer Name Role Phone Chance GARCIA, [place] Primary Care Provider Unava ilKarissa Bautista Unavailable [phone] REASON FOR VISIT BUY Formula 7 Encounters Encounter Location Date Provider Diagnosis [address] [address] 10/24/2024 Karissa Moreau Plan Of Treatment Next Appt Details Provider Name:Karissa jules, 01/09/2025 12:00:00 PM, [address] [place] [address], [phone], Progress Notes * Nadir GASPAR LDOB:1960 (63 yo M)Acc No.[id number]:10/24/2024 Patient:?Nadir GASPAR :1960???Age:63 Y???Sex:Male Address:[address] [place] [address], [id number] * true * Date:? Generated for Farshadi liz/Breezy/eTransmitting on:?11/07/2024 09:15 AM EDT
--- OUTSIDE RECORDS SUMMARY | 2024-11-07 09:16 | XMS_ITS ---
Author Organization [facility] Address [address] [place] [address] Care Team Providers Care Communication Lecturer Name Role Phone Chance GARCIA, Tylor Primary Care Provider Tuan Major Unavailable [phone] Allergies No Known Allergies REASON FOR VISIT [...] 03/20/2024 Encounters Encounter Location Date Provider Diagnosis [facility] [address] [place] [address] 03/20/2024 Tuan Hylton History of adenomato us [...] * JOSE [birth year]OB:[birth year] (63 yo M)Acc No.[id number]:03/20/2024 Progress Notes Patient:?NADIR EMERSON Provider:?Tuan Hylton MD :1960???Age:63 Y???Sex:Male Roberth e:03/20/2024 Address[address] Pcp:Tylor Fletcher MD Subjective: * Chief Complaints: [...] lives with a girlfriend. 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 ???Stopped smoking 2015; occ. beer. [...] Procedure Codes:?3017F COLOR ECTAL CA SCREEN DOC [id number] TOBACCO NON-BAASE9071 BP SCR NOT PRFRM REC REASON NOS * Preventive Medicine:? ??Counseling:?Care goal follow-up plan:?Above Normal BMI Follow-up?Giving encouragement to exercise,?BMI management provided?Yes.? * Follow Up:?prn * * Sign off status: Completed true * Provider:?Tuan Hylton MD Date:? 024 Generated for Hamida hill/Breezy/eTransmitting on:?11/07/2024 09:15 AM EDT History and Physical Notes * [...]
--- OUTSIDE RECORDS SUMMARY | 2024-11-07 09:16 | XMS_ITS ---
Author Organization [facility] Address [address] [place] [address] Care Team Providers Care Configuration Technician Name Role Phone Chance GARCIA, [place] Primary Care Provider Unava Tuan Vega Unavailable [phone] REASON FOR VISIT screening,hx polyps Problems Problem Type SNOMED Code ICD Code Onset Dates Problem Status W/U Status Risk Notes Problem Diverticular disease of colon (902172021) Diverticulosis of large intestine without perforation or abscess without bleeding (K57.30) Active confirmed Encounters Encounter Location Date Provider Diagnosis [facility] Outpatient [address] [place], [place] [id number] 06/29/2024 Tuan Hylton Colon cancer scree rikki [...] * JOSE EMERSONOB:[birth year] (64 yo M)Acc No.[id number]:06/29/2024 COLON WITH MAC Patient:?IDANIAJAREN BALLEL Provider:?Tuan Hylton MD :1960???Age:63 Y???Sex:Male Roberth e:06/29/2024 Address:[address] [facility], [facility] Pcp:Tylor Fletcher MD Subjective: * Chief Complaints: * ???1. Screening,hx polyps. * Medical History:? Objective: * Vitals:? Assessment: * Assessment: 1.?Colon cancer screening - Z12.11 (Primary)???2.?Colon polyps - K63.5???3.?Diverticulosis of large intestine without perforation or abscess without bleeding - K57.30???4.?Other hemorrhoids - K64.8??? Plan: * Treatment: * Procedure Codes:?77678 LESIO N REMOVAL COLONOSCOPY, Modifiers: 33 * * The named appointment provid er may or may not be the originator of this progress note, and it is not deemed complete until electronically signed by the appointment provider. Sign off status: Pending * Provider:?Tuan Hylton MD Date:? 024 Generated for Hamida hill/Breezy/eTransmitting on:?11/07/2024 09:16 AM EDT
--- OUTSIDE RECORDS SUMMARY | 2024-11-07 09:16 | XMS_ITS | Patient Health Record ---
Author Organization [facility] Address [address] [place] [address] Care Team Providers Care Double Reamer Operator Name Role Phone Chance GARCIA, [place] Primary Care Provider Tuan Major Unavailable [phone] Allergies No Known Allergies Results Component Value Reference Range Notes Glucose, Whole Blood Reviewed date:06/29/2024 04:30:10 PM Interpretation: Performing Lab:[facility], [address] [place] [phone] Notes/Report: Glucose, Whole Blood 112 60-115 mg/dL METER # : [id number] Pathology (Not yet reviewed by provider) Interpretation: Performing Lab:[facility], [address] [place] [phone] Notes/Report: ------ Name: HubertRuddy L Age/Sex: 63/M : 1960 Unit#: [id number] Attend Dr: Tuan Hylton MD Re06/29/24 Status : [facility] Location: [facility] Disch: ------ SPEC : [id number] RECD : 06/29/24 STATUS: JESSICA ANDERSON NUM: [id number] MARIA DE JESUS: 06/29/24-1207 [facility] DR: Tuan Hylton MD ENTERED: 06/29/24- 31 SP TYPE: Surgical OTHR DR: Tylor Fletcher MD ORDERED: HE Stain/3, Gross Micro [...] A. CEDS Copies To: Tylor Fletcher MD [facility] Primary Care,[place] [address] [place] [address] Tuan Hylton MD [facility] [address] [place] [address] ------ Signed (signature on file) Gina Zhang [...] Problem Status W/U Status Risk Notes Problem 006260062 Encounter for screening for malignant neoplasm of colon (Z12.11) Active confirmed Problem 595641238 History of adenomatous polyp of colon (Z86.010) Active confirmed Problem Diverticular disease of colon (974533268) Diverticulosis of large intestine without perforation or abscess without bleeding (K57.30) Active confirmed Problem 200607081 Preprocedural examination (Z01.818) Active confirmed Vital Signs Blood pressure diastolic 00 mm Hg 03/20/2024 Height 68 in 03/20/2024 Blood pressure systolic 00 mm Hg 03/20/2024 Weight 267 lbs 03/20/2024 BMI 40.59 kg/m2 03/20/2024 Encounters Encounter Location Date Provider Diagnosis [facility] [address] [place] [phone] 06/29/2024 Tuan Hylton Colon cancer screeni ng Z12.11 ; Colon polyps K63.5 ; Diverticulosis of large intestine without perforation or abscess without bleeding K57.30 and Other hemorrhoids K64.8 [facility] [address] [place] [address] 03/20/2024 Tuan Hylton History of adenomato us [...] Insured Coverage Start Date Coverage End Date [facility] [address] [place] [address] [id number] HUBERTKIMBERLY FELIX Self - patient is the insured Medical (General) History Medical History History ICD Code Screening colonoscopy 2009 --tubular adenomas, divertciulosis, small internal hemorrhoids Denies CO,CVA,Lung disease,renal disease Spinal meningitis -2004 Hyperlipidemia IDDM Negative colonoscopy in 02/2017 Surgical History Surgery Date(Month/Year) Knee surgery-left Left cataract
--- OUTSIDE RECORDS SUMMARY | 2024-11-07 09:16 | XMS_ITS ---
Author Organization [facility] Address [address] [place] [address] Care Team Providers Care President Sales And Marketing Name Role Phone Chance GARCIA, [place] Primary Care Provider Unajulio ilKarissa Bautista Unavailable [phone] REASON FOR VISIT Purchased Formula 7 Encounters Encounter Location Date Provider Diagnosis [address] [address] 08/03/2024 Karissa Moreau Plan Of Treatment Next Appt Details Provider Name:Karissa jules, 01/09/2025 12:00:00 PM, [address] [place] [address], [phone], Progress Notes * Nadir GASPAR LDOB:1960 (63 yo M)Acc No.[id number]:08/03/2024 Patient:?Nadir GASPAR :1960???Age:63 Y???Sex:Male Address:[address] [place] [address], [address] * true * Date:? Generated for Farshadi liz/Breezy/eTransmitting on:?11/07/2024 09:15 AM EDT
--- OUTSIDE RECORDS SUMMARY | 2024-11-07 09:16 | XMS_ITS ---
Author Organization [facility] Address [address] [place] [address] Care Team Providers Care Cake Press Operator Name Role Phone Chance GARCIA, Ralston Primary Care Provider Karissa Hays Unavailable [phone] Allergies No Known Allergies REASON FOR VISIT [...] 10/24/2024 Encounters Encounter Location Date Provider Diagnosis [facility] [address] [address] 10/24/2024 Karissa Moreau Type 2 diabetes mellitus [...] Name:Karissa Jules Gonzalez jules, 01/09/2025 12:00:00 PM, [address] [place] [address], [phone], Procedure Notes * Category Sub-Category Detail Notes [...] use of a nail nipper and/or dremel-type crystal grinder, to a more viable healthy nail [...] to maintain effectiveness in symptomatic relief - 62393 Keratoma Treatment Parring or Cutting o f [...] instrumentation by the physician of record - 07927 Progress Notes * Nadir GASPAR LDOB:1960 (63 yo M)Acc No.[id number]:10/24/2024 Progress Note Patient:?Nadir GASPAR Provider:?Karissa Moreau DPM :1960???Age:63 Y???Sex:Male Roberth e:10/24/2024 Address:[address] [place] [address] Pcp:Tylor Fletcher MD Subjective: * Chief Complaints: [...] no. ?Exercise: no. ?Marital status: . ?Occupation: [employer] * Medications:?TakingPenicilli n G Potassium metFORMIN HCl [...] use of a nail nipper and/or dremel-type crystal grinder, to a more viable healthy nail [...] to maintain effectiveness in symptomatic relief - 29708.?Keratoma Treatment:?Parring or Cutting of Benign Hyperkeratotic Lesion(s)?(-56) [...] instrumentation by the physician of record - 89571.? * Procedure Codes:?77626 DEBRI DE NAIL, 6 OR MORE, Modifiers: XS 58478 TRIM SKIN LESIONS, 2 TO 4, Modifiers: XS * Preventive Medicine:? ??Screening/Special Tests:?Fall Risk?Screening:?No falls in the past year ?FALLS: Screening for Future Fall Risk?Have you had any falls with injury in the past year??No * Follow Up:?2 Months * Images: * Sign off status: Completed true * Provider:?Karissa Moreau DPM Date:?08/2024 Generated for Hamida hill/Breezy/eTransmitting on:?11/07/2024 09:16 AM EDT History and Physical Notes * [...]
--- OUTSIDE RECORDS SUMMARY | 2024-11-07 09:16 | XMS_ITS | Patient Health Record ---
Author Organization [facility] Address [address] [place] [address] Care Team Providers Care Drupal Architect Name Role Phone Chance GARCIA, Dodson Primary Care Provider Karissa Hays Unavailable [phone] Allergies No Known Allergies Results Component Value [...] Problem Acquired hammer toe of right foot (3749605515478469 ) Other hammer toe(s) (acquired), right foot (M20.41) Active confirmed Problem Acquired hammer toe of left foot (7186129516000913 ) Other hammer toe(s) (acquired), left foot (M20.42) Active confirmed Problem Polyneuropathy due to type 2 diabetes mellitus (213765797) Type 2 diabetes mellitus with diabetic polyneuropathy (E11.42) Active confirmed Vital Signs Blood pressure diastolic 80 mm Hg 10/24/2024 Height 5ft7in in 10/24/2024 Blood pressure systolic 125 mm Hg 10/24/2024 Weight 265 lbs 10/24/2024 BMI 41.5 kg/m2 10/24/2024 Encounters Encounter Location Date Provider Diagnosis [address] [address] 08/03/2024 Karissa Moreau Type 2 diabetes mellitus with diabetic polyneuropathy E11.42 ; Tinea unguium B35.1 ; Tinea pedis of both feet B35.3 ; Other hammer toe(s) (acquired), right foot M20.41 and Other hammer toe(s) (acquired), left foot M20.[address] [address] 10/24/2024 Karissa Moreau Type 2 diabetes mellitus with diabetic polyneuropathy E11.42 ; Tinea unguium B35.1 ; Tinea pedis of both feet B35.3 ; Other hammer toe(s) (acquired), right foot M20.41 and Other hammer toe(s) (acquired), left foot M20.[address] [address] 08/03/2024 Karissa Moreau [facility] [address] [place] [address] 10/24/2024 Karissa Moreau Assessments Encounter Date Diagnosis [...] Provider Name:Karissa jules, 01/09/2025 12:00:00 PM, [address] [place], [address], Insurance Providers Payer Name Payer Address Payer Phone Subscriber Number Group Number Insured Name Patient Relationship to Insured Coverage Start Date Coverage End Date [facility] [address] [place] [address] [phone] [id number] Nadir Gaspar Self - patient is the insured Medical (General) History Medical History History ICD Code type II diabetes Mumps Surgical History Surgery Date(Month/Year) knee surgery colonoscopy cataract surgery 2022
== END 2024-11-07 09:54 | disposition home or self-care (01) ==
LOC: HO.HMCH 08:49
PROVIDERS: PCP Internal Medicine; Visit Provider Internal Medicine
DX: Z00.00 Encounter for general adult medical examination without abnormal findings (principal); E11.9 Type 2 diabetes mellitus without complications; Z79.4 Long term (current) use of insulin; Z68.41 Body mass index [BMI] 40.0-44.9, adult; E66.9 Obesity, unspecified; E78.00 Pure hypercholesterolemia, unspecified; R79.89 Other specified abnormal findings of blood chemistry; E55.9 Vitamin D deficiency, unspecified; M17.0 Bilateral primary osteoarthritis of knee; M19.011 Primary osteoarthritis, right shoulder; G47.33 Obstructive sleep apnea (adult) (pediatric)

== ENCOUNTER → 2024-11-07 08:48 | Outpatient (BNVA) | payer OTHER, SELFPAY | PROVIDERS: PCP Internal Medicine; Visit Provider Internal Medicine | DX: Z00.00 Encounter for general adult medical examination without abnormal findings (principal); E11.9 Type 2 diabetes mellitus without complications; E78.00 Pure hypercholesterolemia, unspecified; R79.89 Other specified abnormal findings of blood chemistry; E55.9 Vitamin D deficiency, unspecified; M17.0 Bilateral primary osteoarthritis of knee; M19.011 Primary osteoarthritis, right shoulder; G47.33 Obstructive sleep apnea (adult) (pediatric); E66.9 Obesity, unspecified; Z68.41 Body mass index [BMI] 40.0-44.9, adult; Z79.4 Long term (current) use of insulin; Z79.84 Long term (current) use of oral hypoglycemic drugs; Z79.899 Other long term (current) drug therapy | CPT/HCPCS: 96127 ==

== ENCOUNTER 2024-12-31 07:49 | Outpatient (AMB) | payer OTHER, SELFPAY ==
--- OUTSIDE RECORDS SUMMARY | 2024-12-31 07:52 | XMS_ITS ---
Author Organization [facility] Address [address] [place] [address] Care Team Providers Care Lift Driver Name Role Phone Chance GARCIA, Tylor Primary Care Provider Unava ilKarissa Bautista Unavailable [phone] Encounters Encounter Location Date Provider Diagnosis [address] [address] 06/20/2024 Karissa Moreau Plan Of Treatment Next Appt Details Provider Name:Karissa jules, 01/09/2025 12:00:00 PM, [address] [place] [address], [phone], Progress Notes * Nadir GASPAR LDOB:1960 (64 yo M)Acc No.[id number]:06/20/2024 Progress Notes Patient:?Nadir GASPAR Provider:?Karissa Moreau DPM :1960???Age:63 Y???Sex:Male Roberth e:06/20/2024 Address:[address] [place] [address] Pcp:Tylor Fletcher MD Subjective: * Chief Complaints: * ??? * Medical History:? Objective: * Vitals:? Assessment: Plan: * Treatment: * Images: * The named appointment provid er may or may not be the originator of this progress note, and it is not deemed complete until electronically signed by the appointment provider. Sign off status: Pending * Provider:?Karissa Moreau DPM Date:? Generated for Hamida hill/Breezy/Griffin on:?12/31/2024 07:52 AM EDT
[2024-12-31 07:57] VITALS: BP 140/80; PULSE 67; O2SAT 94; BMI 40.7
--- NOTE | 2024-12-31 07:57 | A.OFFVIS_ITS ---
Vital Signs 12/31/24 07:57 Height 5 ft 8 in Weight 268 lb BMI 40.7 BP 140/80 H Blood Pressure Location Lt brachial Position Sitting Pulse 67 Pulse Source Pulse Oximeter Pulse Oximetry (%) 94 Oxygen Delivery Method Room Air Intake Visit Reasons: Follow up Intake Note: Patient presents follow up for MARIETTA, Compliance in chart Transfer Pumper Required: No Accompanied by: Self / Same As Patient Allergies No Known Allergies [No Known Allergies*] Allergy (Verified 12/31/24 08:00) HPI Comments Details: 64-yr-old male presents for follow-up visit of sleep apnea. Pt denies any significant interval medical history changes. Pt reports he is sleeping well with his CPAP. He only does not sleep with it if he stays up late watching movie and falls asleep before putting it on or if he is is camping (does tent camping and does not have access to electricity) or on his boat. He does clean his PAP supplies. States he is using distilled water in his CPAP water reservoir. Receiving PAP supplies on auto-shipment. Patient plans to retire from his job at the [employer], however he continues to work part-time 20 hours at local [employer] which he enjoys. [facility] 09/24/2024-12/22/2024 APAP compliance report Overall usage 88% Usage greater than 4 hours 78% Average usage on days used 6 hours and 17 minutes APAP 5-20 cm H2O with EPR 3 AirSence 10 auto set device Serial number [id number] Maximum PAP pressure 11.5 cm H2O Median leaks 0.4 L/min Residual AHI 0.8 per hour. reveals APAP 5-20 cmH2O w/ EPR 3 with max pressure of 10/7 cmH2O; overall usage of 94% with usage > 4 hours of 89%; and residual AHI of 0.9/hr. [facility] Medical History Sleep apnea Meningitis spinal Vitamin D deficiency Elevated LFTs Primary osteoarthritis, right shoulder Primary osteoarthritis of both knees Pure hypercholesterolemia Diabetes mellitus Surgical History Hx of cataract extraction H/O right knee surgery History of colonoscopy Family History Father Diabetes Gout CVD (cardiovascular disease) Cancer Mother Cancer Other Mental health disorder Social History Housing: House Alcohol intake: current Alcohol intake frequency: a few times a month Alcohol type: beer Patient Tobacco Use Status: Former Tobacco user Tobacco use type: Cigarette e-Cigarette/Vaping Use: Never Used Second Hand Smoke Exposure: No service: No Current occupational status: employed 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 Cognitive needs: No Hearing needs: No Vision needs: Yes (glasses) Physical Exam Vital Signs: Last Vital Signs Pulse 67 12/31/24 07:57 BP 140/80 H 12/31/24 07:57 Pulse Ox 94 12/31/24 07:57 Oxygen Delivery Method Room Air 12/31/24 07:57 BMI result Body Mass Index 40.7 Const General: no acute distress Orientation/consciousness: patient oriented x3 Resp Effort & Inspection: normal respiratory effort and able to speak in complete sentences Neuro General: patient oriented x3 Psych Mental Status: mental status grossly normal Speech and movement: Clear speech present Attitude: cooperative Assessment & Plan Assessment & Plan (1) Obstructive sleep apnea: Comment: On APAP 5-72ihX1D, HST Results- AHI 10/hr supine 55/hr O2 dequan 87% Code(s): G47.33 - Obstructive sleep apnea (adult) (pediatric) Category: Medical Plan For MARIETTA: Continue APAP 5-20 cmH2O w/ EPR 3 nightly > 4 hours, as pt continues to have good clinical effect from use. * Clean CPAP machine and supplies routinely. * Change CPAP supplies routinely. * Use distilled water in CPAP water reservoir. * Pt to contact us or respiratory company with any questions or concerns. Pt to follow-up in 12 months or sooner prn. Coding Level of Care Code Est Pt Level 3 (89653) Diagnoses Obstructive sleep apnea G47.33
== END 2024-12-31 08:38 | disposition home or self-care (01) ==
LOC: HO.HSMS 07:50
PROVIDERS: PCP Internal Medicine; Visit Provider Nurse Practitioner Family
DX: G47.33 Obstructive sleep apnea (adult) (pediatric) (principal)
CPT/HCPCS: 99213

== ENCOUNTER 2025-03-15 06:53 | Outpatient (REF) | payer MEDICARE, SELFPAY ==
[2025-03-15 10:12] LABS: MANUAL DIFF FLAG NO
[2025-03-15 10:18] LABS: Hematocrit 39.6 % (42.0-52.0); Hemoglobin 13.1 g/dl (14.0-18.0); Imm Gran Abs Auto 0.01 X10*3/uL (0.00-0.03); Imm Gran Pct Auto 0.1 % (0.0-0.4); Lymphocytes Absolute Auto 2.4 X10*3/uL (1.2-4.9); Mean Corpuscular HGB Conc 33.1 g/dl (31.0-36.0); Mean Corpuscular Hemoglobin 29.8 pg (27.0-33.0); Mean Corpuscular Volume 90.2 fL (80.0-98.0); NRBC Abs Auto 0.000 X10*3/uL (0.0-0.012); NRBC Pct Auto 0.0 /100WBC (0.0-0.2); Platelet Count 229 X10*3/uL (160-400); Red Blood Count 4.39 X10*6/uL (4.60-5.80); White Blood Count 7.0 X10*3/uL (4.8-10.8)
[2025-03-15 10:19] LABS: Appearance Urine Turbid; Glucose Urine UA Negative (Negative); PH 5.5 (5.0-9.0); Specific Gravity - Urine 1.025 (1.005-1.025)
[2025-03-15 10:32] LABS: Hemoglobin A1C 187.9162 umol/L; Total Hemoglobin (HGBA1C) 3385.9759 umol/L
[2025-03-15 10:51] LABS: Alanine Aminotransferase 19 U/L (0-40); Albumin Level 4.3 g/dL (3.5-5.0); Alkaline Phosphatase 119 U/L (39-117); Anion Gap 12 (12-20); Aspartate Amino Transferase 34 U/L (5-37); Blood Urea Nitrogen 13 mg/dL (9-16); Calcium 9.4 mg/dL (8.4-10.2); Carbon Dioxide 27 mmol/L (22-29); Chloride 105 mmol/L (96-108); Cholesterol 131 mg/dL (<200); Estimated Glomerular Filt Rate > 60; HDL Cholesterol 33 mg/dL (>40); Potassium 4.1 mmol/L (3.3-5.1); Sodium 140 mmol/L (135-145); Total Protein 6.7 g/dL (6.5-8.0); Triglycerides 108 mg/dL (<150)
[2025-03-15 11:14] LABS: Microalbum/Creatinine Ratio Ur 11.4 ug/mg cr (<30)
[2025-03-15 11:42] LABS: Folate 11.3 ng/mL (> or = 4.0); Prostate Specific Antigen 1.21 ng/mL (<0.05-4.0); Vitamin B12 294 pg/mL (200-900)
== END 2025-03-15 06:54 | disposition home or self-care (01) ==
LOC: HO.HMGCLDS 06:53
PROVIDERS: PCP Internal Medicine; Visit Provider Internal Medicine
DX: Z00.00 Encounter for general adult medical examination without abnormal findings (principal); N40.0 Benign prostatic hyperplasia without lower urinary tract symptoms; E53.8 Deficiency of other specified B group vitamins; E11.9 Type 2 diabetes mellitus without complications; D64.9 Anemia, unspecified; E78.00 Pure hypercholesterolemia, unspecified; E55.9 Vitamin D deficiency, unspecified; R30.0 Dysuria; Z12.5 Encounter for screening for malignant neoplasm of prostate
CPT/HCPCS: 36415; 80053; 80061; 81003; 82043; 82306; 82570; 82607; 82746; 83036; 84153; 84443; 85025

== ENCOUNTER 2025-03-20 09:43 | Outpatient (AMB) | payer MEDICARE, SELFPAY ==
--- OUTSIDE RECORDS SUMMARY | 2024-06-29 07:30 | XMS_ITS ---
Author Organization [facility] Address [address] [place] [address] Care Team Providers Care Consulting Senior Practice Director Name Role Phone Chance GARCIA, [place] Primary Care Provider UnaTuan Ortiz Unavailable [phone] REASON FOR VISIT screening,hx polyps Problems Problem Type SNOMED Code ICD Code Onset Dates Problem Status W/U Status Risk Notes Problem Diverticular disease of colon (339160997) Diverticulosis of large intestine without perforation or abscess without bleeding (K57.30) Active confirmed Encounters Encounter Location Date Provider Diagnosis [facility] Outpatient [address], [place] [phone] 06/29/2024 Tuan Hylton Colon cancer scree rikki [...] * JOSE EMERSONOB:[birth year] (64 yo M)Acc No.[id number]:06/29/2024 COLON WITH MAC Patient: KIMBERLY LANDIS Provider: Mao Hylton MD :1960 A ge:63 Y S ex:Male Date:06/29/2024 Address:[facility], [id number] Pcp:Tylor Fletcher MD Subjective: * Chief Complaints: * 1 . Screening,hx polyps. * Medical History: Objective: * Vitals: Assessment: * Assessment: 1. C olon cancer screening - Z12.11 (Primary) 2 . C olon polyps - K63.5? 3. D iverticulosis of large intestine without perforation or abscess without bleeding - K57.30 4 . O ther hemorrhoids - K64.8 Plan: * Treatment: * Procedure Codes: 4 5385 LESION REMOVAL COLONOSCOPY, Modifiers: 33 * * The named appointment provid er may or may not be the originator of this progress note, and it is not deemed complete until electronically signed by the appointment provider. Sign off status: Pending * Provider: Mao Hylton MD Date: 08/30/2023 Generated for Hamida hill/Breezy/Ivonneitting on: 0 03/20/2025 10:24 AM EDT
[2025-03-20 09:52] VITALS: BP 132/82; PULSE 67; TEMP 36.2; O2SAT 98; BMI 39.3
--- NOTE | 2025-03-20 09:52 | A.OFFPC_ITS ---
Vital Signs 03/20/25 09:52 Height 5 ft 8 in Weight 258 lb 4 oz BMI 39.3 BP 132/82 Blood Pressure Location Lt brachial Position Sitting Pulse 67 Pulse Source Pulse Oximeter Temp 97.1 F Temp Source Temporal Artery Scan Pulse Oximetry (%) 98 Oxygen Delivery Method Room Air Intake Visit Reasons: 4 Months f/u Allergies No Known Allergies (No Known Allergies*) Allergy (Verified 03/20/25 10:25) Medication List - Last Reconciled 03/20/25 by Tylor Fletcher MD blood sugar diagnostic (FreeStyle Lite Strips) USE TO TEST ONCE DAILY blood-glucose meter (FreeStyle Lite Meter kit) Test Daily cholecalciferol (vitamin D3) 50 mcg PO DAILY 90 days insulin glargine (Lantus U-100 Insulin) 20 units (0.2 mL) subcut QPM 90 days insulin syringe-needle U-100 Use Daily insulin syringe-needle U-100 (BD Insulin Syringe Ultra-Fine) As directed lancets (FreeStyle Lancets) USE TO TEST ONCE DAILY metformin 1,000 mg PO BID 90 days pravastatin 20 mg PO DAILY 90 days Tobacco use date assessed: 03/20/25 Fall risk assessment: No Falls in past year Last assessed Fall Risk: 03/20/25 Dental Screening Dental Screen Date: 03/20/25 Did you have a dental visit in the last 12 months?: No Did you have a dental problem in the last 6 months where you did not have access to dental care?: No Was dental information given to patient?: Patient declined HPI 4 Months f/u HPI Details Patient comes in today for his follow up visit States that he feels okay He denies any headaches or dizziness Denies any chest pains, no SOB No nausea/vomiting, no abdominal pain No change in bowel habits noted States that he continues to use his CPAP device at night regularly when he is sleeping and that CPAP therapy has helped him a lot Needs a couple of his Rx refilled He had his follow up labs done a few days ago - to discuss his results [facility] Medical History Sleep apnea Meningitis spinal Vitamin D deficiency Elevated LFTs Primary osteoarthritis, right shoulder Primary osteoarthritis of both knees Pure hypercholesterolemia Diabetes mellitus Surgical History Hx of cataract extraction H/O right knee surgery History of colonoscopy Family History Father Diabetes Gout CVD (cardiovascular disease) Cancer Mother Cancer Other Mental health disorder Social History Housing: House Alcohol intake: current Alcohol intake frequency: a few times a month Alcohol type: beer Patient Tobacco Use Status: Former Tobacco user Tobacco use type: Cigarette e-Cigarette/Vaping Use: Never Used Second Hand Smoke Exposure: No service: No Current occupational status: employed 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 1. Little interest or pleasure in doing things: not at all 2. Feeling down, depressed, or hopeless: not at all 3. Trouble falling or staying asleep, or sleeping too much: not at all 4. Feeling tired or having little energy: not at all 5. Poor appetite or overeating: not at all 6. Feeling bad about yourself - or that you are a failure or have let yourself or your family down: not at all 7. Trouble concentrating on things, such as reading the newspaper or watching television: not at all 8. Moving or speaking so slowly that other people could have noticed. Or the opposite - being so fidgety or restless that you have been moving around a lot more than usual: not at all 9. Thoughts that you would be better off or of hurting yourself in some way: not at all Total score: 0 Depression Screening Interpretation: Negative Depression Screening Done: Yes 66117 - PHQ-9 Billing: Yes Source: Developed by Drs. Tuan Pearce, Naty Mcleod, Babak Duff and colleagues, with an educational anupama from [employer]. Thrive Questionnaire Date Thrive assessed: 03/20/25 I am a: Patient What is your living situation today?: I have a steady place to live Within the past 12 months, did the food you bought not last and you didn't have the money to get more?: Never true Within the past 12 months, did you worry whether your food would run out before you got money to buy more?: Never true Do you have trouble paying for medicines?: No Do you have trouble getting transportation to medical appointments?: No Do you have trouble paying your heating and electricity bill?: No Do you have trouble taking care of your child, family member or friend?: No Do you have trouble with day-to-day activities such as bathing, preparing meals, shopping, managing finances, etc.?: No Are you currently unemployed and looking for a job?: No Are you interested in more education?: No Please select the resources that you would like help with: None Currently or been in a relationship where the following occur: No concerns reported THRIVE Score: 0 AUDIT C Alcohol Use Questionnaire (AUDIT-C) 1. How often do you have a drink containing alcohol?: Monthly or less 2. How many drinks containing alcohol do you have on a typical day when you are drinking?: 1 or 2 3. How often do you have six or more drinks on one occasion?: Never Total Score: 1 Score Reviewed/Action Taken: Yes CARTER-7 AMB Questionnaire CARTER-7 Date CARTER - 7 assessed: 11/07/24 Feeling nervous, anxious, or on edge: 0 = Not at all Not being able to stop or control worryin = Not at all Worrying too much about different things: 0 = Not at all Trouble relaxin = Not at all Being so restless that it is hard to sit still: 0 = Not at all Becoming easily annoyed or irritable: 0 = Not at all Feeling afraid as if something awful might happen: 0 = Not at all Total CARTER-7 score (0-4 normal; 5-9 mild; 10-14 moderate; 15-21 severe): 0 Source: Developed by Drs. Tuan Pearce, Naty Mcleod, Babak Duff and colleagues, with an educational anupama from [employer]. Review of Systems Const Denies chills, Denies fatigue, Denies fever(s) and Denies headache(s) ENT Denies dysphagia, Denies dizziness, Denies otalgia, Denies headache(s), Denies neck pain, Denies odynophagia and Denies sore throat Card Denies chest pain, Denies rapid heart rate, Denies irregular heart rhythm, Denies palpitations and Denies dyspnea Resp Denies chest congestion, Denies cough and Denies dyspnea GI Denies abdominal pain, Denies constipation, Denies dysphagia, Denies heartburn, Denies diarrhea, Denies nausea, Denies odynophagia and Denies vomiting Denies difficulty urinating, Denies dysuria and Denies urinary frequency Musc Denies back pain, Reports arthralgias (on and off in both knees and in the right shoulder - mostly controlled) and Denies neck pain Skin/Breast Denies rash Neuro Denies dizziness, Denies headache(s) and Denies paresthesias Endo Denies fatigue and Denies palpitations Physical exam (Primary Care) Vital Signs: Last Vital Signs Temp 97.1 F 03/20/25 09:52 Pulse 67 03/20/25 09:52 BP 132/82 03/20/25 09:52 Pulse Ox 98 03/20/25 09:52 Oxygen Delivery Method Room Air 03/20/25 09:52 BMI result Body Mass Index 39.3 Tobacco/Smoking Status: Tobacco use Status Tobacco use date assessed 03/20/25 03/20/25 09:57 Patient Tobacco Use Status Former Tobacco user 03/20/25 09:57 Tobacco use type Cigarette 03/20/25 09:57 e-Cigarette/Vaping Use Never Used 03/20/25 09:57 PHQ-9: PHQ-9 Score PHQ-9: Total score 0 03/20/25 09:57 Depression Screening Interpretation: Negative Thrive Assessment: Date of Thrive Assessment Date Thrive assessed 03/20/25 03/20/25 09:57 Currently or been in a relationship where the following occur: No concerns reported Const General: no acute distress and alert HENMT Ears: TM's normal bilaterally and EAC's normal Throat: Yes posterior oropharynx normal and Yes tonsils normal (no TP congestion) Neck Neck: Yes supple and No lymphadenopathy Thyroid: Thyroid normal Resp Auscultation: clear to auscultation bilaterally, no rales and no wheezes Cardio Rate: regular rate Rhythm: regular rhythm Heart sounds: no murmurs GI Palpation (GI): Soft to palpation and nontender Auscultation: normal bowel sounds General: Yes no CVA tenderness Back/Spine/Pelvis Back: no CVA tenderness Thoracic/Lumbar Spine: No lumbar spinal tenderness Skin Rashes: no rashes Extrem General: Yes no clubbing, cyanosis or edema Right lower extremity: knee Details: tenderness (mild); no swelling Left lower extremity: knee Details: tenderness (mild); no swelling Results Reviewed Results Reviewed: Laboratory Tests 03/15/25 07:00 WBC 7.0 Hgb 13.1 L Hct 39.6 L Plt Count 229 Sodium 140 Potassium 4.1 Creatinine 0.75 Estimated GFR > 60 Fasting Glucose 99 Hemoglobin A1c % 7.2 H Calcium 9.4 AST 34 ALT 19 Triglycerides 108 Cholesterol 131 LDL Cholesterol, Calc 77 HDL Cholesterol 33 L Prostate Specific Ag 1.21 Vitamin B12 294 25-OH Vitamin D Total 49.8 TSH 2.45 Ur Specific [place] 1.025 Urine Protein Negative Urine Glucose (UA) Negative Urine Blood Negative Urine Nitrite Negative Ur Leukocyte Esterase Negative Microalb/Creat Ratio 11.4 Coding Level of Care Code Est Pt Level 4 (04674) Diagnoses Type 2 diabetes mellitus without complication, with long-term current use of insulin E11.9; Z79.4 Diabetes mellitus type: type 2 Diabetes mellitus custodial insulin use: with custodial use Diabetes mellitus complication status: without complication Pure hypercholesterolemia E78.00 Elevated LFTs R79.89 Vitamin D deficiency E55.9 Primary osteoarthritis of both knees M17.0 Primary osteoarthritis, right shoulder M19.011 Obstructive sleep apnea G47.33 Obesity (BMI 30-39.9) E66.9 Additional Codes PHQ-9 - 11065 - PHQ-9 Billing: Yes ([id number]) Assessment & Plan Assessment & Plan (1) Diabetes mellitus: Code(s): E11.9 - Type 2 diabetes mellitus without complications Category: Medical Qualifiers: Diabetes mellitus type: type 2 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 Diabetes mellitus complication status: without complication Qualified Code(s): E11.9 - Type 2 diabetes mellitus without complications; Z79.4 - keno terminal operator (current) use of insulin Plan: His HgbA1c was at 7.2% on his labs done a few days ago (was previously at 7.4% a few months ago) - goal is <7.0% Reinforced diabetic diet Continue Metformin 1000 mg BID and Lantus 20 units Q HS Follow-up with endocrinology as scheduled (2) Pure hypercholesterolemia: Code(s): E78.00 - Pure hypercholesterolemia, unspecified Category: Medical Plan: Results of his labs done a few days ago reviewed and discussed with patient - he is advised that his cholesterol numbers remain at or near goal on his recent labs Reinforced low-cholesterol diet Continue Pravastatin 20 mg QD Will recheck his labs and fasting lipids in 4 months for follow up (3) Elevated LFTs: Code(s): R79.89 - Other specified abnormal findings of blood chemistry Category: Medical Plan: His LFTs have remained normal on his recent labs - they were most likely related to his weight (hepatosteatosis) when they were elevated previously Will continue to monitor his LFTs regularly (4) Vitamin D deficiency: Code(s): E55.9 - Vitamin D deficiency, unspecified Category: Medical Plan: Continue Vitamin D3 2000 units QD (5) Primary osteoarthritis of both knees: Code(s): M17.0 - Bilateral primary osteoarthritis of knee Category: Medical Plan: Patient states that his knee pains have remained mostly manageable Have advised him again that losing some weight can help ease up a lot of his knee pain/symptoms (6) Primary osteoarthritis, right shoulder: Code(s): M19.011 - Primary osteoarthritis, right shoulder Category: Medical Plan: His shoulder symptoms have also remained adequately controlled on his current meds He is again encouraged to continue with regular shoulder ROM exercises to help manage his joint pains and stiffness (7) Obstructive sleep apnea: Comment: On APAP [id number], HST Results- AHI 10/hr supine 55/hr O2 dequan 87% Code(s): G47.33 - Obstructive sleep apnea (adult) (pediatric) Category: Medical Plan: Patient continues to use his autoPAP regularly when he is sleeping at night and feels that it has and is still helping him a lot Follow up with Sleep Medicine as scheduled (8) Obesity (BMI 30-39.9): Code(s): E66.9 - Obesity, unspecified Category: Medical Plan: Reinforced diet/exercise as tolerated/lose weight Plan Follow up in 4 months Orders: Orders Comprehensive [place]. Panel Fast 4 Months E78.00 - Pure hypercholesterolemia, unspecified Lipid Panel 4 Months E78.00 - Pure hypercholesterolemia, unspecified Hemoglobin A1c 4 Months E11.9 - Type 2 diabetes mellitus without complications UA CC w/rflx Micro + Cult 4 Months R30.0 - Dysuria Complete Blood Count Auto Diff 4 Months D64.9 - Anemia, unspecified Microalbumin, Random (w Creat) 4 Months E11.9 - Type 2 diabetes mellitus without complications Medications: Refilled cholecalciferol (vitamin D3) 50 mcg PO DAILY 90 caps 3RF 90 days E55.9 - Vitamin D deficiency, unspecified insulin glargine (Lantus U-100 Insulin) 20 units (0.2 mL) subcut QPM 18 mL 1RF 90 days E11.65 - Type 2 diabetes mellitus with hyperglycemia
--- OUTSIDE RECORDS SUMMARY | 2025-03-20 10:24 | XMS_ITS | Patient Health Record ---
Author Organization [facility] Address [address] [place] [address] Care Team Providers Care Liquefied Natural Gas Operator Name Role Phone Chance GARCIA, [place] Primary Care Provider Tuan Major Unavailable [phone] Allergies No Known Allergies Results Component Value Reference Range Notes Glucose, Whole Blood Reviewed date:06/29/2024 04:30:10 PM Interpretation: Performing Lab:[facility], [address] [place] [phone] Notes/Report: Glucose, Whole Blood 112 60-115 mg/dL METER # : [id number] Pathology (Not yet reviewed by provider) Interpretation: Performing Lab:[facility], [address] [place] [phone] Notes/Report: Reason For Referral No Information Medications Medication SIG (Take, Route, Frequency, Duration) Notes Start Date End Date Status Lantus 100 UNIT/ML INJECT 20 UNITS SUBCUTANEOUSLY EVERY EVENING Subcutaneous for 28 Active Pravastatin Sodium 20 MG 1 tablet Orally Once a day Active ibuprofen 1 tab Oral as needed Not-Taking metFORMIN HCl 1000 MG TAKE 1 TABLET BY M OUT TWICE A DAY Oral for 90 Active [...] Problem Status W/U Status Risk Notes Problem 796135938 Encounter for screening for malignant neoplasm of colon (Z12.11) Active confirmed Problem 084491621 History of adenomatous polyp of colon (Z86.010) Active confirmed Problem Diverticulosis o f large intestine without perforation or abscess without bleeding (K57.30) Active confirmed Problem 123595918 Preprocedural examination (Z01.818) Active confirmed Vital Signs Blood pressure diastolic 00 mm Hg 03/20/2024 Height 68 in 03/20/2024 Blood pressure systolic 00 mm Hg 03/20/2024 Weight 267 lbs 03/20/2024 BMI 40.59 kg/m2 03/20/2024 Encounters Encounter Location Date Provider Diagnosis [facility] [address] [place], [place] [id number] 06/29/2024 Tuan Hylton Colon cancer screeni ng Z12.11 ; Colon polyps K63.5 ; Diverticulosis of large intestine without perforation or abscess without bleeding K57.30 and Other hemorrhoids K64.8 [facility] [address] [place] [address] 03/20/2024 Tuan Hylton History of adenomato us [...] Insured Coverage Start Date Coverage End Date [facility] [address] [place] [address] [id number] IDANIA NADIR Self - patient is the insured Medical (General) History Medical History History ICD Code Screening colonoscopy 2009 --tubular adenomas, divertciulosis, small internal hemorrhoids Denies [place],CVA,Lung disease,renal disease Spinal meningitis -2004 Hyperlipidemia IDDM Negative colonoscopy in 02/2017 Surgical History Surgery Date(Month/Year) Knee surgery-left Left cataract
--- OUTSIDE RECORDS SUMMARY | 2025-03-20 10:24 | XMS_ITS | Patient Health Record ---
Author Organization [facility] Address [address] [place] [address] Care Team Providers Care Water Treatment Plant Operator Name Role Phone Chance GARCIA, [place] Primary Care Provider Karissa Hays Unavailable [phone] Allergies No Known Allergies Results Component Value Reference Range Notes HEMOGLOBIN A1C (GLYCOHEMOGLO BIN) Reviewed date:08/03/2024 09:24:07 AM Interpretation: Performing Lab: Notes/Report: HEMOGLOBIN A1C % (HH) 7.0 Reason For Referral No Information Medications Medication SIG (Take, Route, Frequency, Duration) Notes Start Date End Date Status Ciclopirox Olamine 0.77 % USE 1 APPLICAT ION EXTERNALLY TWICE A DAY TO SKIN OF FEET INCLUDING BETWEEN THE TOES 30 DAYS; Duration: 30 Active Extra Depth Orthopedic Shoes (1 Pair) with Customized Heat Molded Multidensity Innersoles (3 Pair) as directed Dx: NIDDM/Polyneuropathy (E11.42), Hammertoe Foot Deformity (M20.41,M20.42), Preulcerative Skin Lesion(s) (L85.1 Active Penicillin G Potassium Active Pravastatin Sodium 20 MG 1 tablet Orally Once a day Active metFORMIN HCl 1000 MG 1 tablet with a me al Orally Once a day Active Immunizations Vaccine Route Administration Date Status Comme nts Influenza Unknown 01/09/2025 Refused Social History Tobacco Use: Social History Observation [...] Problem Acquired hammer toe of right foot (321730837811 9105) Other hammer toe(s) (acquired), right foot (M20.41) Active confirmed Problem Acquired hammer toe of left foot (189719244043 9103) Other hammer toe(s) (acquired), left foot (M20.42) Active confirmed Problem Type 2 diabetes mellitus with diabetic polyneuropathy (E11.42) Active confirmed Vital Signs Blood pressure diastolic 80 mm Hg 01/09/2025 Height 5ft7in in 01/09/2025 Blood pressure systolic 125 mm Hg 01/09/2025 Weight 265 lbs 01/09/2025 BMI 41.5 kg/m2 01/09/2025 Encounters Encounter Location Date Provider Diagnosis [address] [address] 08/03/2024 Karissa Moreau Type 2 diabetes mellitus with diabetic polyneuropathy E11.42 ; Tinea unguium B35.1 ; Tinea pedis of both feet B35.3 ; Other hammer toe(s) (acquired), right foot M20.41 and Other hammer toe(s) (acquired), left foot M20.[address] [address] 10/24/2024 Karissa Rothjorge a Type 2 diabetes mellitus with diabetic polyneuropathy E11.42 ; Tinea unguium B35.1 ; Tinea pedis of both feet B35.3 ; Other hammer toe(s) (acquired), right foot M20.41 and Other hammer toe(s) (acquired), left foot M20.[address] [address] 01/09/2025 Karissa Moreau Tinea unguium B35.1 and Type 2 diabetes mellitus with diabetic polyneuropathy E11.[address] [facility] [address] [address] 08/03/2024 Karissa Moreau [facility] [address] [address] 10/24/2024 Karissa Moreau [facility] [address] [address] 01/09/2025 Karissa Moreau Assessments Encounter Date Diagnosis (ICD Code) Assessment Notes Treatment Notes Treatment Clinical Notes Section Notes 08/03/2024 Type 2 diabetes mellitus with diabetic polyneuropathy (ICD-10 - E11.42) 08/03/2024 Tinea unguium (ICD-10 - B35.1) 10/24/2024 Type 2 diabetes mellitus with diabetic polyneuropathy (ICD-10 - E11.42) 10/24/2024 Tinea unguium (ICD-10 - B35.1) 01/09/2025 Type 2 diabetes mellitus with diabetic polyneuropathy (ICD-10 - E11.42) 01/09/2025 Tinea unguium (ICD-10 - B35.1) 10/24/2024 Tinea [...] Treatment Next Appt Details Provider Name:Karissa jules, 04/10/2025 09:15:00 AM, [address] [place] [address], [phone], Insurance Providers Payer Name Payer Address Payer Phone Subscriber Number Group Number Insured Name Patient Relationship to Insured Coverage Start Date Coverage End Date [facility] [address] [facility], [place] [address] [phone] [id number] Nadir Gaspar Self - patient is the insured 4 Medical (General) History Medical History History ICD Code type II diabetes Mumps Surgical History Surgery Date(Month/Year) knee surgery colonoscopy cataract surgery 2022
== END 2025-03-20 10:39 | disposition home or self-care (01) ==
LOC: HO.HMCH 09:44
PROVIDERS: PCP Internal Medicine; Visit Provider Internal Medicine
DX: E11.9 Type 2 diabetes mellitus without complications (principal); Z79.4 Long term (current) use of insulin; E66.9 Obesity, unspecified; Z68.39 Body mass index [BMI] 39.0-39.9, adult; E78.00 Pure hypercholesterolemia, unspecified; R79.89 Other specified abnormal findings of blood chemistry; E55.9 Vitamin D deficiency, unspecified; M17.0 Bilateral primary osteoarthritis of knee; M19.011 Primary osteoarthritis, right shoulder; G47.33 Obstructive sleep apnea (adult) (pediatric)

== ENCOUNTER → 2025-03-20 09:43 | Outpatient (BNVA) | payer MEDICARE, SELFPAY | PROVIDERS: PCP Internal Medicine; Visit Provider Internal Medicine | DX: E11.9 Type 2 diabetes mellitus without complications (principal); E55.9 Vitamin D deficiency, unspecified; E78.00 Pure hypercholesterolemia, unspecified; R79.89 Other specified abnormal findings of blood chemistry; M19.011 Primary osteoarthritis, right shoulder; G47.33 Obstructive sleep apnea (adult) (pediatric); E66.9 Obesity, unspecified; Z68.39 Body mass index [BMI] 39.0-39.9, adult; Z79.4 Long term (current) use of insulin; Z71.3 Dietary counseling and surveillance | CPT/HCPCS: 96127; 99212 ==

== ENCOUNTER 2025-07-23 07:48 | Outpatient (REF) | payer MEDICARE, SELFPAY ==
--- OUTSIDE RECORDS SUMMARY | 2024-06-20 05:30 | XMS_ITS ---
Author Organization [facility] Address [address] [place] [id number] Care Team Providers Care Shoe Parts Molder Name Role Phone Chance GARCIA, Tylor Primary Care Provider Karissa Hays Unavailable [phone] Encounters Encounter Location Date Provider Diagnosis [address] [address] 06/20/2024 Karissa Moreau Plan Of Treatment No Information Progress Notes * Nadir GASPAR LDOB:1960 (64 yo M)Acc No.[id number]:06/20/2024 Progress Notes Patient: Nadir LANDIS Provider: Mark Moreau DPM :1960 A ge:63 Y S ex:Male Date:06/20/2024 Address:[address] [place], [place] [id number] Pcp:Tylor Fletcher MD Subjective: * Chief Complaints: * * Medical History: Objective: * Vitals: Assessment: Plan: * Treatment: * Images: * The named appointment provid er may or may not be the originator of this progress note, and it is not deemed complete until electronically signed by the appointment provider. Sign off status: Pending * Provider: Mark Moreau DPM Date: 08/20/2023 Generated for Printi ng/Faxing/eTransmitting on: 09:12 AM EST
--- OUTSIDE RECORDS SUMMARY | 2024-06-29 06:30 | XMS_ITS ---
Author Organization [facility] Address [address] [place] [address] Care Team Providers Care Instructional Specialist Name Role Phone Chance GARCIA, [place] Primary Care Provider UnaTuan Ortiz Unavailable [phone] REASON FOR VISIT screening,hx polyps Problems Problem Type SNOMED Code ICD Code Onset Dates Problem Status W/U Status Risk Notes Problem Diverticular disease of colon (354628137) Diverticulosis of large intestine without perforation or abscess without bleeding (K57.30) Active confirmed Encounters Encounter Location Date Provider Diagnosis [facility] Outpatient [address], [place] [phone] 06/29/2024 Tuan Hylton Colon cancer scree rikki [...] * JOSE [birth year]OB:[birth year] (64 yo M)Acc No.[id number]:06/29/2024 COLON WITH MAC Patient: KIMBERLY LANDIS Provider: Mao Hylton MD :1960 A ge:63 Y S ex:Male Date:06/29/2024 [facility] [id number] Pcp:Tylor Fletcher MD Subjective: * Chief Complaints: [...] Modifiers: 33 Billing Information: * Procedure Codes: 73571 LESION REMOVAL COLONOSCOPY. Modifiers: 33 * The named appointment provid er may or may not be the originator of this progress note, and it is not deemed complete until electronically signed by the appointment provider. Sign off status: Pending * Provider: Mao Hylton MD Date: 08/30/2023 Generated for Hamida hill/Breezy/Ivonneitting on: 09:12 AM EST
--- OUTSIDE RECORDS SUMMARY | 2025-04-10 04:15 | XMS_ITS ---
[facility] Organization [facility] Address [address] [place] [address] Care Team Providers Care Station Examiner Name Role Phone Chance GARCIA, Tyl[place] Primary Care Provider Karissa Hays Unavailable [phone] Encounters Encounter Location Date Provider Diagnosis [address] [address] 04/10/2025 Karissa Moreau Plan Of Treatment No Information Progress Notes * Nadir GASPAR LDOB:1960 (64 yo M)Acc No.[id number]:04/10/2025 Progress Note Patient: Nadir LANDIS Provider: Mark Moreau DPM :1960 A ge:64 Y S ex:Male Date:04/10/2025 Address:[address] [place], [place] [id number] Pcp:Tylor Fletcher MD Subjective: * Chief Complaints: * * Medical History: Objective: * Vitals: Assessment: Plan: * Treatment: * Images: * The named appointment provid er may or may not be the originator of this progress note, and it is not deemed complete until electronically signed by the appointment provider. Sign off status: Pending * Provider: Mark Moreau DPM Date: 0 04/10/2025 Generated for Printi ng/Faxing/eTransmitting on: 1 09:13 AM EST
--- OUTSIDE RECORDS SUMMARY | 2025-07-12 05:00 | XMS_ITS ---
Author Organization [facility] Address [address] [place] [address] Care Team Providers Care Wood Stock Blank Handler Name Role Phone Chance GARCIA, [place] Primary Care Provider Karissa Hays Unavailable [phone] Medications Medication SIG (Take, Route, Frequency, Duration) [...] Active Encounters Encounter Location Date Provider Diagnosis [facility] [address] [place] [address] 07/12/2025 Karissa Moreau Plan Of Treatment No Information Progress Notes * Nadir GASPAR LDOB:1960 (64 yo M)Acc No.[id number]:07/12/2025 Progress Note Patient: Nadir LANDIS Provider: Mark Moreau DPM :1960 A ge:64 Y S ex:Male Date:07/12/2025 Address:[address] [place], [place] [id number] Pcp:Tylor Fletcher MD Subjective: * Chief Complaints: [...] Date: 09/12/2024 Generated for [place] hill/Breezy/Griffin on: 09:12 AM EST History and Physical Notes * HPI (History of Present Illness) Category Sub-Category Detail Notes Category Not es At Risk footcare Pt States Last PCP Visit: Date:: 01/23/20 25
--- OUTSIDE RECORDS SUMMARY | 2025-07-23 09:13 | XMS_ITS | Patient Health Record ---
Author Organization [facility] Address [address] [place] [address] Care Team Providers Care Director It Name Role Phone Chance GARCIA, Tylor Primary Care Provider Tuan Major Unavailable [phone] Allergies No Known Allergies Reason For Referral No Information Medications Medication SIG (Take, Route, Frequency, Duration) Notes Start Date End Date Status Lantus 100 UNIT/ML Solution INJECT 20 UNITS SUBCUTANEOUSLY EVERY EVENING Subcutaneous; Duration: 28 Active Pravastatin Sodium 20 MG Tablet 1 tablet Orally Once a day Active ibuprofen 1 tab Oral as needed Not-Taking/PRN metFORMIN HCl 1000 MG Tablet TAKE 1 TABLET BY MOUTH TWICE A DAY Oral; Duration: 90 Active Aspirin Adult Low Dose 81 MG Tablet Delayed Release 1 tablet Orally Once a day Not-Taking/PRN Social History Tobacco Use: Social History Observation Description Date Details (start date - stop date) Former Smoker NA - NA Social History Drugs/Alcohol: Social Info Question Answer Notes Alcohol Screen Did you have a drink containing alcohol in the past year? Yes How often did you have a drink containing alcohol in the past year? 4 or more times a week (4 points) How many drinks did you have on a typical day when you were drinking in the past year? 1 or 2 drinks (0 point) How often did you have 6 or more drinks on one occasion in the past year? Never (0 point) Points 4 Interpretation Positive Tobacco Use: Social Info Question Answer Notes Tobacco Use/Smoking Patient is a former smoker How long has it been since you last smoked? 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 b eer Problems Problem Type SNOMED Code ICD Code Onset Dates Problem Status W/U Status Risk Notes Problem Screening for malignant neoplasm of colon (586488952) Encounter for screening for malignant neoplasm of colon (Z12.11) Active confirmed Problem History of adenomatous polyp of colon (795680183) History of adenomatous polyp of colon (Z86.010) Active confirmed Problem Diverticular disease of colon (078535879) Diverticulosis of large intestine without perforation or abscess without bleeding (K57.30) Active confirmed Problem Preprocedural examination (312864410331042) Preprocedural examination (Z01.818) Active confirmed Plan Of Treatment Pending Test Test Name Order Date Pathology 06/29/2024 Future Test Test Name Order Date COLONOSCOPY 12/02/2016 COLONOSCOPY 03/20/2024 Insurance Providers Payer Name Payer Address Payer Phone Subscriber Number Group Number Insured Name Patient Relationship to Insured Coverage Start Date Coverage End Date [facility] [address] [place] [address] [phone] [id number] KIMBERLY EMERSON Self - patient is the insured Medical (General) History Medical History History ICD Code Screening colonoscopy 2009 --tubular adenomas, divertciulosis, small internal hemorrhoids Denies [place],CVA,Lung disease,renal disease Spinal meningitis -2004 Hyperlipidemia IDDM Negative colonoscopy in 02/2017 Surgical History Surgery Date(Month/Year) Knee surgery-left Left cataract
--- OUTSIDE RECORDS SUMMARY | 2025-07-23 09:13 | XMS_ITS | Patient Health Record ---
Author Organization [facility] Address [address] [place] [address] Care Team Providers Care Geochemical Manager Name Role Phone Chance GARCIA, [place] Primary Care Provider Karissa Hays Unavailable [phone] Allergies No Known Allergies Results Component Value Reference Range Notes HEMOGLOBIN A1C (GLYCOHEMOGLO BIN) Reviewed date:04/16/2025 09:53:40 AM Interpretation: Performing Lab: Notes/Report: HEMOGLOBIN A1C % (HH) 7.1 Reason For Referral No Information Medications Medication [...] a day Active Penicillin G Potassium Active Immunizations Vaccine Route Administration Date Status Comme nts Influenza Unknown 01/09/2025 Refused Influenza Unknown 04/16/2025 Refused Social History Tobacco Use: Social History [...] nk containing alcohol in the past year? Monthly or less (1 point) How many drinks did you have on a typical day when you were drinking in the past year? 1 or 2 drinks (0 point) How often did you have six o r more drinks on one occasion in the past year? Never (0 point) Points 1 Interpretation Negative Problems Problem Type SNOMED Code ICD Code Onset Dates Problem Status W/U Status Risk Notes Problem Acquired hammer toe of right foot (6451031956712874 ) Other hammer toe(s) (acquired), right foot (M20.41) Active confirmed Problem Acquired hammer toe of left foot (5319956800701523 ) Other hammer toe(s) (acquired), left foot (M20.42) Active confirmed Problem Polyneuropathy due to type 2 diabetes mellitus (324275360) Type 2 diabetes mellitus with diabetic polyneuropathy (E11.42) Active confirmed Vital Signs Blood pressure diastolic 80 mm Hg 04/16/2025 Height 5ft 7in in 04/16/2025 Blood pressure systolic 125 mm Hg 04/16/2025 Weight 260 lbs 04/16/2025 BMI 40.72 kg/m2 04/16/2025 Encounters Encounter Location Date Provider Diagnosis [facility] [address] [address] 08/03/2024 Karissa Moreau Type 2 diabetes mellitus with diabetic polyneuropathy E11.42 ; Tinea unguium B35.1 ; Tinea pedis of both feet B35.3 ; Other hammer toe(s) (acquired), right foot M20.41 and Other hammer toe(s) (acquired), left foot M20.[address] [facility] [address] 10/24/2024 Karissa Moreau Type 2 diabetes mellitus with diabetic polyneuropathy E11.42 ; Tinea unguium B35.1 ; Tinea pedis of both feet B35.3 ; Other hammer toe(s) (acquired), right foot M20.41 and Other hammer toe(s) (acquired), left foot M20.[address] [address] 01/09/2025 Karissa Moreau Tinea unguium B35.1 and Type 2 diabetes mellitus with diabetic polyneuropathy E11.[address] [address] 04/16/2025 Karissa Moreau Tinea unguium B35.1 ; Other hammer toe(s) (acquired), right foot M20.41 ; Type 2 diabetes mellitus with diabetic polyneuropathy E11.42 and Other hammer toe(s) (acquired), left foot M20.[address] [facility] [address] 08/03/2024 Karissa Rotha [facility] [address] 10/24/2024 Karissa Perica [facility] [address] [address] 01/09/2025 Karissa Perica [facility] [address] 04/08/2025 Karissa Perica [facility] [address] [address] 04/16/2025 Karissa Perica [facility] [address] 07/12/2025 Karissa Moreau Assessments Encounter Date Diagnosis (ICD [...] E11.42) 01/09/2025 Tinea unguium (ICD-10 - B35.1) 04/16/2025 Other hammer toe(s) (acquired), right foot (ICD-10 - M20.41) Patient Educated with: DIABETIC FOOT CARE INSTRUCTIONS. pdf (DIABETIC FOOT CARE INSTRUCTIONS. pdf) 04/16/2025 Tinea unguium (ICD-10 - B35.1) 04/16/2025 Type 2 diabetes mellitus with diabetic polyneuropathy (ICD-10 - E11.42) 10/24/2024 Tinea pedis of both feet (ICD-10 - B35.3) 08/03/2024 Tinea pedis of both feet (ICD-10 - B35.3) 10/24/2024 Other hammer toe(s) (acquired), right foot (ICD-10 - M20.41) 08/03/2024 Other hammer toe(s) (acquired), right foot (ICD-10 - M20.41) Patient Educated with: DIABETIC FOOT CARE INSTRUCTIONS. pdf (DIABETIC FOOT CARE INSTRUCTIONS. pdf) 04/16/2025 Other hammer toe(s) (acquired), left foot (ICD-10 - M20.42) 08/03/2024 Other hammer toe(s) (acquired), left foot (ICD-10 - M20.42) 10/24/2024 Other hammer toe(s) (acquired), left foot (ICD-10 - M20.42) Plan Of Treatment No Information Insurance Providers Payer Name Payer Address Payer Phone Subscriber Number Group Number Insured Name Patient Relationship to Insured Coverage Start Date Coverage End Date Medicare [employer] [address] [place] [address] [id number] Nadir Gaspar Self - patient is the insured [employer] [address] [place] [address] [id number] Nadir Gaspar Self - patient is the insured Medical (General) History Medical History History ICD Code type II diabetes Mumps Surgical History Surgery Date(Month/Year) knee surgery colonoscopy cataract surgery 2022
[2025-07-23 10:23] LABS: Appearance Urine Clear; Glucose Urine UA Negative (Negative); PH 7.0 (5.0-9.0); Specific Gravity - Urine 1.020 (1.005-1.025)
[2025-07-23 10:37] LABS: MANUAL DIFF FLAG NO
[2025-07-23 10:43] LABS: Microalbum/Creatinine Ratio Ur 24.8 ug/mg cr (<30)
[2025-07-23 10:45] LABS: Hematocrit 40.9 % (42.0-52.0); Hemoglobin 13.7 g/dl (14.0-18.0); Imm Gran Abs Auto 0.02 X10*3/uL (0.00-0.03); Imm Gran Pct Auto 0.3 % (0.0-0.4); Lymphocytes Absolute Auto 2.0 X10*3/uL (1.2-4.9); Mean Corpuscular HGB Conc 33.5 g/dl (31.0-36.0); Mean Corpuscular Hemoglobin 30.2 pg (27.0-33.0); Mean Corpuscular Volume 90.3 fL (80.0-98.0); NRBC Abs Auto 0.000 X10*3/uL (0.0-0.012); NRBC Pct Auto 0.0 /100WBC (0.0-0.2); Platelet Count 208 X10*3/uL (160-400); Red Blood Count 4.53 X10*6/uL (4.60-5.80); White Blood Count 7.1 X10*3/uL (4.8-10.8)
[2025-07-23 11:19] LABS: Alanine Aminotransferase 20 U/L (0-40); Albumin Level 4.4 g/dL (3.5-5.0); Alkaline Phosphatase 136 U/L (39-117); Anion Gap 13 (12-20); Aspartate Amino Transferase 30 U/L (5-37); Blood Urea Nitrogen 15 mg/dL (9-16); Calcium 9.4 mg/dL (8.4-10.2); Carbon Dioxide 28 mmol/L (22-29); Chloride 104 mmol/L (96-108); Cholesterol 157 mg/dL (<200); Estimated Glomerular Filt Rate > 60; HDL Cholesterol 45 mg/dL (>40); Potassium 4.2 mmol/L (3.3-5.1); Sodium 141 mmol/L (135-145); Total Protein 7.0 g/dL (6.5-8.0); Triglycerides 91 mg/dL (<150)
== END 2025-07-23 07:49 | disposition home or self-care (01) ==
LOC: HO.HMGCLDS 07:48
PROVIDERS: PCP Internal Medicine; Visit Provider Internal Medicine
DX: E11.9 Type 2 diabetes mellitus without complications (principal); E78.00 Pure hypercholesterolemia, unspecified; R30.0 Dysuria; D64.9 Anemia, unspecified
CPT/HCPCS: 36415; 80053; 80061; 81003; 82043; 82570; 83036; 85025

== ENCOUNTER 2025-07-24 09:42 | Outpatient (AMB) | payer MEDICARE, SELFPAY ==
--- OUTSIDE RECORDS SUMMARY | 2024-06-20 05:30 | XMS_ITS ---
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 Name Role Phone Chance GARCIA, Tylor Primary Care Provider UnaKarissa Ellison Unavailable [phone] Encounters Encounter Location Date Provider Diagnosis [address] [address] 06/20/2024 Karissa Moreau Plan Of Treatment No Information Progress Notes * Nadir GASPAR LDOB:1960 (64 yo M)Acc No.[id number]:06/20/2024 Progress Notes Patient: Nadir LANDIS Provider: Mark Moreau DPM :1960 A ge:63 Y S ex:Male Date:06/20/2024 Address:[address] [place], [place] [id number] Pcp:Tylor Fletcher MD Subjective: * Chief Complaints: [...] Moreau DPM Date: 08/20/2023 Generated for Printi ng/Famagdielg/eTransmitting on: 10:17 AM EST
--- OUTSIDE RECORDS SUMMARY | 2024-06-29 06:30 | XMS_ITS ---
Author Organization [facility] Address [address] [place] [address] Care Team Providers Care Manufacture Specialist Name Role Phone Chance GARCIA, [place] Primary Care Provider UnaTuan Ortiz Unavailable [phone] REASON FOR VISIT screening,hx polyps Problems Problem Type SNOMED Code ICD Code Onset Dates Problem Status W/U Status Risk Notes Problem Diverticular disease of colon (818071147) Diverticulosis of large intestine without perforation or abscess without bleeding (K57.30) Active confirmed Encounters Encounter Location Date Provider Diagnosis [facility] [address] [place], [place] [id number] 06/29/2024 Tuan Hylton Colon cancer scree rikki Z12.11 ; Colon polyps K63.5 ; Diverticulosis of large intestine without perforation or abscess without bleeding K57.30 and Other hemorrhoids K64.8 Assessments Encounter Date Diagnosis (ICD Code) Assessment Notes Treatment Notes Treatment Clinical Notes Section Notes 06/29/2024 Colon cancer screening (ICD-10 - Z12.11) 06/29/2024 Colon polyps (ICD-10 - K63.5) 06/29/2024 Diverticulosis of large intestine without perforation or abscess without bleeding (ICD-10 - K57.30) 06/29/2024 Other hemorrhoids (ICD-10 - K64.8) Plan Of Treatment No Information Progress Notes * JOSE [birth year]OB:[birth year] (64 yo M)Acc No.[id number]:06/29/2024 COLON WITH MAC Patient: KIMBERLY LANDIS Provider: Mao Hylton MD :1960 A ge:63 Y S ex:Male Date:06/29/2024 [facility] [phone] Pcp:Tylor Fletcher MD Subjective: * Chief Complaints: * S creening,hx polyps Assessment: * Assessment: 1. C olon cancer screening - Z12.11 (Primary) 2 . C olon polyps - K63.5? 3. D iverticulosis of large intestine without perforation or abscess without bleeding - K57.30 4 . O ther hemorrhoids - K64.8 Plan: * Procedure Codes: 4 5385 LESION REMOVAL COLONOSCOPY, Modifiers: 33 Billing Information: * Procedure Codes: 32723 LESION REMOVAL COLONOSCOPY. Modifiers: 33 * The named appointment provid er may or may not be the originator of this progress note, and it is not deemed complete until electronically signed by the appointment provider. Sign off status: Pending * Provider: Mao Hylton MD Date: 1 08/30/2023 Generated for Hamida hill/Breezy/Lianasmitting on: 10:17 AM EST
--- OUTSIDE RECORDS SUMMARY | 2025-04-10 04:15 | XMS_ITS ---
Author Organization [facility] Address [address] [place] [address] Care Team Providers Care Telegrapher Agent Name Role Phone Chance GARCIA, Tyl[place] Primary Care Provider Karissa Hays Unavailable [phone] Encounters Encounter Location Date Provider Diagnosis [address] [address] 04/10/2025 Karissa Moreau Plan Of Treatment No Information Progress Notes * Nadir GASPAR LDOB:1960 (64 yo M)Acc No.[id number]:04/10/2025 Progress Note Patient: Nadir LANDIS Provider: Mark Moreau DPM :1960 A ge:64 Y S ex:Male Date:04/10/2025 Address:[address] [place], [place] [id number] Pcp:Tylor Fletcher MD Subjective: * Chief Complaints: [...] DPM Date: 0 04/10/2025 Generated for Printi ng/Famagdielg/eTransmitting on: 1 10:17 AM EST
--- OUTSIDE RECORDS SUMMARY | 2025-07-12 05:00 | XMS_ITS ---
Author Organization [facility] Address [address] [place] [address] Care Team Providers Care Breading Machine Tender Name Role Phone Chance GARCIA, [place] Primary Care Provider Karissa Hays Unavailable [phone] Medications Medication SIG (Take, Route, Frequency, Duration) Notes Start Date End Date Status Extra Depth Orthopedic Shoes (1 Pair) with Customized Heat Molded Multidensity Innersoles (3 Pair) Dx: NIDDM/Polyneuropathy (E11.42), Hammertoe Foot Deformity (M20.41,M20.42), Preulcerative Skin Lesion(s) (L85.1); Duration: 365 days 04/16/2025 Active Ciclopirox Olamine 0.77 % USE 1 APPLICAT ION EXTERNALLY TWICE A DAY TO SKIN OF FEET INCLUDING BETWEEN THE TOES 30 DAYS; Duration: 30 Active Extra Depth Orthopedic Shoes (1 Pair) with Customized Heat Molded Multidensity Innersoles (3 Pair) as directed Dx: NIDDM/Polyneuropathy (E11.42), Hammertoe Foot Deformity (M20.41,M20.42), Preulcerative Skin Lesion(s) (L85.1 Active Pravastatin Sodium 20 MG 1 tablet Orally Once a day Active metFORMIN HCl 1000 MG 1 tablet with a me al Orally Once a day Active Penicillin G Potassium Active Encounters Encounter Location Date Provider Diagnosis [facility] [address] [place] [address] 07/12/2025 Karissa Moreau Plan Of Treatment No Information Progress Notes * Nadir GASPAR LDOB:1960 (64 yo M)Acc No.[id number]:07/12/2025 Progress Note Patient: Nadri LANDIS Provider: Mark Moreau DPM :1960 A ge:64 Y S ex:Male Date:07/12/2025 Address:[address] [place], [place] [id number] Pcp:Tylor Fletcher MD Subjective: * Chief Complaints: * * HPI: A t Risk footcare: Pt States Last PCP Visit: D ate: 0 01/22/2025 * Medical History: * Medications: T aking Penicillin G Potassium , Taking metFORMIN HCl 1000 MG Tablet 1 tablet with a meal Orally Once a day , Taking Pravastatin Sodium 20 MG Tablet 1 tablet Orally Once a day , Taking Extra Depth Orthopedic Shoes (1 Pair) with Customized Heat Molded Multidensity Innersoles (3 Pair) as directed Dx: NIDDM/Polyneuropathy (E11.42), Hammertoe Foot Deformity (M20.41,M20.42), Preulcerative Skin Lesion(s) (L85.1 , Taking Ciclopirox Olamine 0.77 % Cream USE 1 APPLICATION EXTERNALLY TWICE A DAY TO SKIN OF FEET INCLUDING BETWEEN THE TOES 30 DAYS , Taking Extra Depth Orthopedic Shoes (1 Pair) with Customized Heat Molded Multidensity Innersoles (3 Pair) Dx: NIDDM/Polyneuropathy (E11.42), Hammertoe Foot Deformity (M20.41,M20.42), Preulcerative Skin Lesion(s) (L85.1) Objective: * Vitals: Assessment: Plan: * Treatment: * Images: * The named appointment provid er may or may not be the originator of this progress note, and it is not deemed complete until electronically signed by the appointment provider. Sign off status: Pending * Provider: Mark Moreau DPM Date: 09/12/2024 Generated for [place]/Breezy/Griffin on: 10:16 AM EST History and Physical Notes * HPI (History of Present Illness) Category Sub-Category Detail Notes Category Not es At Risk footcare Pt States Last PCP Visit: Date:: 01/23/20 25
[2025-07-24 09:44] VITALS: BP 130/82; PULSE 96; O2SAT 96; BMI 40.9
--- NOTE | 2025-07-24 09:44 | A.OFFPC_ITS ---
Vital Signs 07/24/25 09:44 Height 5 ft 8 in Weight 269 lb BMI 40.9 BP 130/82 Blood Pressure Location Lt brachial Position Sitting Pulse 96 Pulse Source Pulse Oximeter Pulse Oximetry (%) 96 Oxygen Delivery Method Room Air Intake Visit Reasons: 4 Months Analytical Chemist Required: No Accompanied by: Self / Same As Patient Allergies No Known Allergies (No Known Allergies*) Allergy (Verified 07/24/25 10:22) Medication List - Last Reconciled 07/24/25 by Tylor Fletcher MD blood sugar diagnostic (FreeStyle Lite Strips) USE TO TEST ONCE DAILY blood-glucose meter (FreeStyle Lite Meter kit) Test Daily cholecalciferol (vitamin D3) 50 mcg PO DAILY 90 days insulin glargine (Lantus U-100 Insulin) 20 units (0.2 mL) subcut QPM 90 days insulin syringe-needle U-100 Use Daily insulin syringe-needle U-100 As directed- once daily lancets (FreeStyle Lancets) USE TO TEST ONCE DAILY metformin 1,000 mg PO BID 90 days pravastatin 20 mg PO DAILY 90 days Tobacco use date assessed: 07/24/25 Fall risk assessment: No Falls in past year Last assessed Fall Risk: 07/24/25 Dental Screening Dental Screen Date: 07/24/25 Did you have a dental visit in the last 12 months?: No Did you have a dental problem in the last 6 months where you did not have access to dental care?: No Was dental information given to patient?: No HPI 4 Months HPI Details Patient is a 64 year old male presenting for follow-up and management of chronic conditions. He has a history of type 2 diabetes, with his hemoglobin A1c increasing from 7.2% to 8.0% at this visit. He has also experienced an increase in his cholesterol levels by at least 20 points and a weight gain of over 10 pounds. Patient reports having intermittent chest pain a few times, with the last episode occurring about a month ago while he was going to sleep; he described it as feeling like heartburn. Notes that the chest pain is not associated with exertion, walking up stairs, or shortness of breath. He has a significant family history of heart disease, with his sister and brother having had heart attacks, and another brother having a bad heart requiring stents. Patient states that he feels okay otherwise and will need his Lantus Rx refilled He denies any headaches or dizziness Denies any increased SOB No nausea/vomiting, no abdominal pain No change in bowel habits noted States that he continues to use his CPAP device at night regularly when he is sleeping and that CPAP therapy has helped him a lot Needs his Lantus Rx refilled He had his follow up labs done yesterday - to discuss his results [facility] Medical History Sleep apnea Meningitis spinal Vitamin D deficiency Elevated LFTs Primary osteoarthritis, right shoulder Primary osteoarthritis of both knees Pure hypercholesterolemia Diabetes mellitus Surgical History Hx of cataract extraction H/O right knee surgery History of colonoscopy Family History Father Diabetes Gout CVD (cardiovascular disease) Cancer Mother Cancer Other Mental health disorder Social History Housing: House Alcohol intake: current Alcohol intake frequency: a few times a month Alcohol type: beer Patient Tobacco Use Status: Former Tobacco user Tobacco use type: Cigarette e-Cigarette/Vaping Use: Never Used Second Hand Smoke Exposure: No service: No Current occupational status: employed 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 1. Little interest or pleasure in doing things: not at all 2. Feeling down, depressed, or hopeless: not at all 3. Trouble falling or staying asleep, or sleeping too much: not at all 4. Feeling tired or having little energy: not at all 5. Poor appetite or overeating: not at all 6. Feeling bad about yourself - or that you are a failure or have let yourself or your family down: not at all 7. Trouble concentrating on things, such as reading the newspaper or watching television: not at all 8. Moving or speaking so slowly that other people could have noticed. Or the opposite - being so fidgety or restless that you have been moving around a lot more than usual: not at all 9. Thoughts that you would be better off or of hurting yourself in some way: not at all Total score: 0 Depression Screening Interpretation: Negative Depression Screening Done: Yes [id number] - PHQ-9 Billing: Yes Source: Developed by Drs. Tuan Pearce, Naty Mcleod, Babak Duff and colleagues, with an educational anupama from [employer]. Thrive Questionnaire Date Thrive assessed: 07/24/25 I am a: Patient What is your living situation today?: I have a steady place to live Within the past 12 months, did the food you bought not last and you didn't have the money to get more?: Never true Within the past 12 months, did you worry whether your food would run out before you got money to buy more?: Never true Do you have trouble paying for medicines?: No Do you have trouble getting transportation to medical appointments?: No Do you have trouble paying your heating and electricity bill?: No Do you have trouble taking care of your child, family member or friend?: No Do you have trouble with day-to-day activities such as bathing, preparing meals, shopping, managing finances, etc.?: No Are you currently unemployed and looking for a job?: No Are you interested in more education?: No Please select the resources that you would like help with: None Currently or been in a relationship where the following occur: No concerns reported THRIVE Score: 0 AUDIT C Alcohol Use Questionnaire (AUDIT-C) 1. How often do you have a drink containing alcohol?: Monthly or less 2. How many drinks containing alcohol do you have on a typical day when you are drinking?: 1 or 2 3. How often do you have six or more drinks on one occasion?: Never Total Score: 1 Score Reviewed/Action Taken: Yes CARTER-7 AMB Questionnaire CARTER-7 Date CARTER - 7 assessed: 07/24/25 Feeling nervous, anxious, or on edge: 0 = Not at all Not being able to stop or control worryin = Not at all Worrying too much about different things: 0 = Not at all Trouble relaxin = Not at all Being so restless that it is hard to sit still: 0 = Not at all Becoming easily annoyed or irritable: 0 = Not at all Feeling afraid as if something awful might happen: 0 = Not at all Total CARTER-7 score (0-4 normal; 5-9 mild; 10-14 moderate; 15-21 severe): 0 Source: Developed by Drs. Tuan Pearce, Naty Mcleod, Babak Duff and colleagues, with an educational anupama from [employer]. Review of Systems Const Denies chills, Denies fatigue, Denies fever(s) and Denies headache(s) ENT Denies dysphagia, Denies dizziness, Denies otalgia, Denies headache(s), Denies neck pain, Denies odynophagia and Denies sore throat Card Reports chest pain (occasionally over the past few months, mostly when he is lying down), Denies rapid heart rate, Denies irregular heart rhythm, Denies palpitations and Reports dyspnea on exertion (mild, at times) Resp Denies chest congestion, Denies cough and Reports dyspnea on exertion (mild, at times) GI Denies abdominal pain, Denies constipation, Denies dysphagia, Denies heartburn, Denies diarrhea, Denies nausea, Denies odynophagia and Denies vomiting Denies difficulty urinating, Denies dysuria and Denies urinary frequency Musc Denies back pain, Reports arthralgias (on and off in both knees and in the right shoulder - mostly controlled) and Denies neck pain Skin/Breast Denies rash Neuro Denies dizziness, Denies headache(s) and Denies paresthesias Endo Denies fatigue and Denies palpitations Physical exam (Primary Care) Vital Signs: Last Vital Signs Pulse 96 07/24/25 09:44 BP 130/82 07/24/25 09:44 Pulse Ox 96 07/24/25 09:44 Oxygen Delivery Method Room Air 07/24/25 09:44 BMI result Body Mass Index 40.9 Tobacco/Smoking Status: Tobacco use Status Tobacco use date assessed 07/24/25 07/24/25 09:51 Patient Tobacco Use Status Former Tobacco user 07/24/25 09:51 Tobacco use type Cigarette 07/24/25 09:51 e-Cigarette/Vaping Use Never Used 07/24/25 09:51 PHQ-9: PHQ-9 Score PHQ-9: Total score 0 07/24/25 09:51 Depression Screening Interpretation: Negative Thrive Assessment: Date of Thrive Assessment Date Thrive assessed 07/24/25 07/24/25 09:51 Currently or been in a relationship where the following occur: No concerns reported Const General: no acute distress and alert HENMT Ears: TM's normal bilaterally and EAC's normal Throat: Yes posterior oropharynx normal and Yes tonsils normal (no TP congestion) Neck Neck: Yes supple and No lymphadenopathy Thyroid: Thyroid normal Resp Auscultation: clear to auscultation bilaterally, no rales and no wheezes Cardio Rate: regular rate Rhythm: regular rhythm Heart sounds: no murmurs GI Palpation (GI): Soft to palpation and nontender Auscultation: normal bowel sounds General: Yes no CVA tenderness Back/Spine/Pelvis Back: no CVA tenderness Thoracic/Lumbar Spine: No lumbar spinal tenderness Skin Rashes: no rashes Extrem General: Yes no clubbing, cyanosis or edema Right lower extremity: knee Details: tenderness (mild); no swelling Left lower extremity: knee Details: tenderness (mild); no swelling Results Reviewed Results Reviewed: Laboratory Tests 07/23/25 07/23/25 07:55 08:00 WBC 7.1 Hgb 13.7 L Hct 40.9 L Plt Count 208 Sodium 141 Potassium 4.2 Creatinine 0.90 Estimated GFR > 60 Fasting Glucose 128 H Hemoglobin A1c % 8.0 H Calcium 9.4 AST 30 ALT 20 Triglycerides 91 Cholesterol 157 LDL Cholesterol, Calc 94 HDL Cholesterol 45 Ur Specific [place] 1.020 Urine Protein Trace Urine Glucose (UA) Negative Urine Blood Negative Urine Nitrite Negative Ur Leukocyte Esterase Negative Microalb/Creat Ratio 24.8 Coding Level of Care Code Est Pt Level 4 (43280) Add On Problem Visit Only Diagnoses Chest pain, unspecified type R07.9 Chest pain type: unspecified Type 2 diabetes mellitus without complication, with long-term current use of insulin E11.9; Z79.4 Diabetes mellitus type: type 2 Diabetes mellitus joint terminal attack controller insulin use: with joint terminal attack controller use Diabetes mellitus complication status: without complication Pure hypercholesterolemia E78.00 Elevated LFTs R79.89 Vitamin D deficiency E55.9 Primary osteoarthritis of both knees M17.0 Primary osteoarthritis, right shoulder M19.011 Obstructive sleep apnea G47.33 Obesity (BMI 30-39.9) E66.9 Additional Codes PHQ-9 - 07434 - PHQ-9 Billing: Yes ([id number]) Assessment & Plan Assessment & Plan (1) Chest pain: Code(s): R07.9 - Chest pain, unspecified Category: Medical Qualifiers: Chest pain type: unspecified Qualified Code(s): R07.9 - Chest pain, unspecified Plan: Patient reports (+) strong family history of heart disease and he is concerned now about his own risks Due to his multiple comorbidities, including diabetes, HTN and [place], will send him for cardiac stress testing for further evaluation (2) Diabetes mellitus: Code(s): E11.9 - Type 2 diabetes mellitus without complications Category: Medical Qualifiers: Diabetes mellitus type: type 2 Diabetes mellitus joint terminal attack controller insulin use: with fci use Diabetes mellitus complication status: without complication Qualified Code(s): E11.9 - Type 2 diabetes mellitus without complications; Z79.4 - care home (current) use of insulin Plan: His HgbA1c was at 8.0% on his labs done yesterday (was previously at 7.2% a few months ago) - goal is <7.0% Reinforced diabetic diet - he admits to poor compliance with his diet over the recent holidays Continue Metformin 1000 mg BID and Lantus 20 units Q HS (Rx refilled) for now Follow-up with endocrinology as scheduled (3) Pure hypercholesterolemia: Code(s): E78.00 - Pure hypercholesterolemia, unspecified Category: Medical Plan: Results of his labs done yesterday reviewed and discussed with patient - he is advised that his cholesterol numbers have increased slightly from previous Reinforced low-cholesterol diet Continue Pravastatin 20 mg QD Will recheck his labs and fasting lipids in 4 months for follow up (4) Elevated LFTs: Code(s): R79.89 - Other specified abnormal findings of blood chemistry Category: Medical Plan: His LFTs have remained normal on his recent labs - they were most likely related to his weight (hepatosteatosis) when they were elevated previously Will continue to monitor his LFTs regularly (5) Vitamin D deficiency: Code(s): E55.9 - Vitamin D deficiency, unspecified Category: Medical Plan: Continue Vitamin D3 2000 units QD (6) Primary osteoarthritis of both knees: Code(s): M17.0 - Bilateral primary osteoarthritis of knee Category: Medical Plan: Patient states that his knee pains have remained mostly manageable Have advised him again that losing some weight can help ease up a lot of his knee pain/symptoms (7) Primary osteoarthritis, right shoulder: Code(s): M19.011 - Primary osteoarthritis, right shoulder Category: Medical Plan: His shoulder symptoms have also remained adequately controlled on his current meds He is again encouraged to continue with regular shoulder ROM exercises to help manage his joint pains and stiffness (8) Obstructive sleep apnea: Comment: On APAP [id number], HST Results- AHI 10/hr supine 55/hr O2 dequan 87% Code(s): G47.33 - Obstructive sleep apnea (adult) (pediatric) Category: Medical Plan: Patient continues to use his autoPAP regularly when he is sleeping at night and feels that it has and is still helping him a lot Follow up with Sleep Medicine as scheduled (9) Obesity (BMI 30-39.9): Code(s): E66.9 - Obesity, unspecified Category: Medical Plan: Reinforced diet/exercise as tolerated/lose weight - he has gained over 10 pounds since his last visit Plan Follow up in 4 months Orders: Orders CA cardiopulmonary stress test Today R07.9 - Chest pain, unspecified Hemoglobin A1c 4 Months E11.9 - Type 2 diabetes mellitus without complications Complete Blood Count Auto Diff 4 Months D64.9 - Anemia, unspecified Comprehensive Marilla. Panel Fast 4 Months E78.00 - Pure hypercholesterolemia, unspecified Lipid Panel 4 Months E78.00 - Pure hypercholesterolemia, unspecified TSH reflex Free T4 4 Months E78.00 - Pure hypercholesterolemia, unspecified UA CC w/rflx Micro + Cult 4 Months R30.0 - Dysuria Vitamin D 25-OH Total 4 Months E55.9 - Vitamin D deficiency, unspecified Microalbumin, Random (w Creat) 4 Months E11.9 - Type 2 diabetes mellitus without complications Vitamin B12 and Folate 4 Months E53.8 - Deficiency of other specified B group vitamins Medications: Refilled insulin glargine (Lantus U-100 Insulin) 20 units (0.2 mL) subcut QPM 18 mL 1RF 90 days E11.65 - Type 2 diabetes mellitus with hyperglycemia
--- OUTSIDE RECORDS SUMMARY | 2025-07-24 10:17 | XMS_ITS | Patient Health Record ---
Author Organization [facility] Address [address] [place] [address] Care Team Providers Care Opener Verifier [employer] Name Role Phone Chance GARCIA, [place] Primary Care Provider Karissa Hays Unavailable [phone] Allergies No Known Allergies Results Component Value [...] Problem Acquired hammer toe of right foot (0286990345114354 ) Other hammer toe(s) (acquired), right foot (M20.41) Active confirmed Problem Acquired hammer toe of left foot (5939700960950188 ) Other hammer toe(s) (acquired), left foot (M20.42) Active confirmed Problem Polyneuropathy due to type 2 diabetes mellitus (391096262) Type 2 diabetes mellitus with diabetic polyneuropathy (E11.42) Active confirmed Vital Signs Blood pressure diastolic 80 mm Hg 04/16/2025 Height 5ft 7in in 04/16/2025 Blood pressure systolic 125 mm Hg 04/16/2025 Weight 260 lbs 04/16/2025 BMI 40.72 kg/m2 04/16/2025 Encounters Encounter Location Date Provider Diagnosis [facility] [address] [address] 08/03/2024 Karissa Moreau Type 2 diabetes mellitus with diabetic polyneuropathy E11.42 ; Tinea unguium B35.1 ; Tinea pedis of both feet B35.3 ; Other hammer toe(s) (acquired), right foot M20.41 and Other hammer toe(s) (acquired), left foot M20.[address] [facility] [address] 10/24/2024 Karissa Moreau Type 2 diabetes mellitus with diabetic polyneuropathy E11.42 ; Tinea unguium B35.1 ; Tinea pedis of both feet B35.3 ; Other hammer toe(s) (acquired), right foot M20.41 and Other hammer toe(s) (acquired), left foot M20.[address] [address] 01/09/2025 Karissa Moreau Tinea unguium B35.1 and Type 2 diabetes mellitus with diabetic polyneuropathy E11.[address] [address] 04/16/2025 Karissa Moreau Tinea unguium B35.1 ; Other hammer toe(s) (acquired), right foot M20.41 ; Type 2 diabetes mellitus with diabetic polyneuropathy E11.42 and Other hammer toe(s) (acquired), left foot M20.[address] [facility] [address] 08/03/2024 Karissa Rotha [facility] [address] 10/24/2024 Karissa Perica [facility] [address] [address] 01/09/2025 Karissa Perica [facility] [address] 04/08/2025 Karissa Perica [facility] [address] [address] 04/16/2025 Karissa Perica [facility] [address] 07/12/2025 Karissa Moreau Assessments Encounter Date Diagnosis [...] [employer] [address] [place] [address] [id number] Nadir Gaspar Self - patient is the insured [employer] [address] [place] [address] [id number] Nadir Gaspar Self - patient is the insured Medical (General) History Medical History History ICD Code type II diabetes Mumps Surgical History Surgery Date(Month/Year) knee surgery colonoscopy cataract surgery 2022
--- OUTSIDE RECORDS SUMMARY | 2025-07-24 10:18 | XMS_ITS | Patient Health Record ---
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 b eer Problems Problem Type SNOMED Code ICD Code Onset Dates Problem Status W/U Status Risk Notes Problem Screening for malignant neoplasm of colon (109995543) Encounter for screening for malignant neoplasm of colon (Z12.11) Active confirmed Problem History of adenomatous polyp of colon (198801221) History of adenomatous polyp of colon (Z86.010) Active confirmed Problem Diverticular disease of colon (565441030) Diverticulosis of large intestine without perforation or abscess without bleeding (K57.30) Active confirmed Problem Preprocedural examination (985815768633228) Preprocedural examination (Z01.818) Active confirmed Plan Of Treatment Pending Test Test Name Order Date Pathology 06/29/2024 Future Test Test Name Order Date COLONOSCOPY 12/02/2016 COLONOSCOPY 03/20/2024 Insurance Providers Payer Name Payer Address Payer Phone Subscriber Number Group Number Insured Name Patient Relationship to Insured Coverage Start Date Coverage End Date [facility] [address] [place] [address] [phone] [id number] KIMBERLY EMERSON Self - patient is the insured Medical (General) History Medical History History ICD Code Screening colonoscopy 2009 --tubular adenomas, divertciulosis, small internal hemorrhoids Denies PR,CVA,Lung disease,renal disease Spinal meningitis -2004 Hyperlipidemia IDDM Negative colonoscopy in 02/2017 Surgical History Surgery Date(Month/Year) Knee surgery-left Left cataract
== END 2025-07-24 10:33 | disposition home or self-care (01) ==
LOC: HO.HMCH 09:43
PROVIDERS: PCP Internal Medicine; Visit Provider Internal Medicine
DX: R07.9 Chest pain, unspecified (principal); E11.9 Type 2 diabetes mellitus without complications; Z79.4 Long term (current) use of insulin; E78.00 Pure hypercholesterolemia, unspecified; R79.89 Other specified abnormal findings of blood chemistry; E55.9 Vitamin D deficiency, unspecified; M17.0 Bilateral primary osteoarthritis of knee; M19.011 Primary osteoarthritis, right shoulder; G47.33 Obstructive sleep apnea (adult) (pediatric); E66.9 Obesity, unspecified

== ENCOUNTER → 2025-07-24 09:42 | Outpatient (BNVA) | payer MEDICARE, SELFPAY | PROVIDERS: PCP Internal Medicine; Visit Provider Internal Medicine | DX: R07.9 Chest pain, unspecified (principal); E11.65 Type 2 diabetes mellitus with hyperglycemia; I10 Essential (primary) hypertension; E78.00 Pure hypercholesterolemia, unspecified; E55.9 Vitamin D deficiency, unspecified; M17.0 Bilateral primary osteoarthritis of knee; M19.011 Primary osteoarthritis, right shoulder; E66.9 Obesity, unspecified; G47.33 Obstructive sleep apnea (adult) (pediatric); Z13.31 Encounter for screening for depression; Z79.4 Long term (current) use of insulin; Z82.49 Family history of ischemic heart disease and other diseases of the circulatory system; Z87.891 Personal history of nicotine dependence; Z99.89 Dependence on other enabling machines and devices | CPT/HCPCS: 96127; 99212 ==